=== PATIENT | male | born 1940 | race Caucasian/White ===

== ENCOUNTER 2017-11-09 19:08 | Inpatient (IN) | payer MEDICARE, OTHER ==
[2017-11-09] MEDS ORDERED: SODIUM CHLORIDE 0.9% 1,000 ML IV ONE ×2 (19:49)
--- NOTE | 2017-11-09 19:51 | ED Physician Documentation ---
PD HPI SKIN - Stated complaint Stated Complaint: BILAT LEG WOUNDS - Chief complaint Chief Complaint: Wound - History obtained from History obtained from: Patient, Family - History of Present Illness Timing - onset: Unknown Timing - details: Gradual onset Pain level max: 0 Pain level now: 0 Location: RLE, LLE Quality / character: Painful, Discolored, Crusted, Swelling, Draining Improved by: Other (nothing) Worsened by (comment): COMMENT (nothing) Associated symptoms: Fever (unknown). No: Facial swelling, Dyspnea, N/V/D Similar symptoms before: Diagnosis (cellulitis) Recently seen: Not recently seen (has not visited a physician for over 2 years.) Review of Systems Ten Systems: 10 systems reviewed and negative Constitutional: denies: Fever, Chills Ears: denies: Ear pain Nose: denies: Rhinorrhea / runny nose, Congestion Throat: denies: Sore throat Cardiac: denies: Chest pain / pressure Respiratory: denies: Dyspnea, Cough, Wheezing GI: denies: Abdominal Pain, Nausea, Diarrhea Skin: denies: Rash Musculoskeletal: denies: Neck pain, Back pain Neurologic: denies: Focal weakness, Numbness, Headache PD PAST MEDICAL HISTORY - Past Medical History Past Medical History: Yes Cardiovascular: Hypertension, Coronary artery disease Respiratory: None Neuro: Peripheral neuropathy Endocrine/Autoimmune: HyPOthyroidism GI: None : None HEENT: None Psych: None Musculoskeletal: Rheumatoid arthritis Derm: None - Past Surgical History Past Surgical History: Yes Cardiovascular: CABG HEENT: Cataracts - Present Medications Home Medications: Ambulatory Orders Medication Instructions Recorded Confirmed No Known Home Medications [No 11/09/17 11/09/17 Known Home Medications] - Allergies Allergies/Adverse Reactions: Allergies Allergy/AdvReac Type Severity Reaction Status Date / Time methotrexate Allergy Emesis Verified 11/09/17 19:21 - Social History Does the pt smoke?: Yes Smoking Status: Current every day smoker Does the pt drink ETOH?: No Does the pt have substance abuse?: No - Immunizations Immunizations are current?: No - POLST Patient has POLST: No PD ED PE NORMAL - Vitals Vital signs reviewed: Yes - General General: Alert and oriented X 3, No acute distress - HEENT HEENT: Other (dry lips and tongue) - Neck Neck: Supple, no meningeal sign - Cardiac Cardiac: RRR, Strong equal pulses - Respiratory Respiratory: No respiratory distress, Clear bilaterally - Abdomen Abdomen: Soft, Non tender, Non distended - Back Back: No spinal TTP - Derm Derm: Warm and dry, Other (flaking of skin on B LE and back) - Extremities Extremities: Other (pressure ulcer to the L heel, 2x2cm, deep. R LE - large wound to the lateral aspect. maggots present. Pressure ulcer on R hip as well. Decubitus ulcer on buttocks. swelling and erythema to B LE.) - Neuro Neuro: Alert and oriented X 3 Results - Vitals Vitals: Vital Signs - 24 hr 11/09/17 11/09/17 11/09/17 19:16 19:59 20:33 Temperature 37 C Heart Rate 113 H 116 H 112 H Respiratory 22 22 25 H Rate Blood Pressure 146/102 H 142/90 H 142/95 H O2 Saturation 97 97 Oxygen O2 Source Room air - Labs Labs: Laboratory Tests 11/09/17 11/09/17 11/09/17 19:57 19:57 19:57 WBC 11.5 H RBC 4.96 Hgb 14.1 Hct 43.2 MCV 87.1 MCH 28.4 MCHC 32.6 RDW 18.8 H Plt Count 216 MPV 9.0 Neut # (Auto) 10.1 H Lymph # (Auto) 0.9 L [place] # (Auto) 0.5 Eos # (Auto) 0.0 Baso # (Auto) 0.0 Absolute Nucleated RBC 0.00 Nucleated RBC % 0.0 Sodium 136 Potassium 3.6 Chloride 99 L Carbon Dioxide 27 Anion Gap 10.0 BUN 19 Creatinine 0.5 L Estimated GFR (MDRD) 161 Glucose 169 H Lactic Acid 4.5 H* Calcium 8.5 Total Bilirubin 1.0 AST 117 H ALT 64 H Alkaline Phosphatase 53 Total Creatine Kinase 1008 H* Total Protein 7.4 Albumin 2.3 L Globulin 5.1 H Albumin/Globulin Ratio 0.5 L Lipase 33 Urine Color Urine Clarity Urine pH Ur Specific [place] Urine Protein Urine Glucose (UA) Urine Ketones Urine Occult Blood Urine Nitrite Urine Bilirubin Urine Urobilinogen Ur Leukocyte Esterase Urine RBC Urine WBC Ur Squamous Epith Cells Urine Bacteria Ur Microscopic Review Urine Culture Comments 11/09/17 20:15 WBC RBC Hgb Hct MCV MCH MCHC RDW Plt Count MPV Neut # (Auto) Lymph # (Auto) [place] # (Auto) Eos # (Auto) Baso # (Auto) Absolute Nucleated RBC Nucleated RBC % Sodium Potassium Chloride Carbon Dioxide Anion Gap BUN Creatinine Estimated GFR (MDRD) Glucose Lactic Acid Calcium Total Bilirubin AST ALT Alkaline Phosphatase Total Creatine Kinase Total Protein Albumin Globulin Albumin/Globulin Ratio Lipase Urine Color DARK YELLOW Urine Clarity CLEAR Urine pH 6.0 Ur Specific [place] 1.025 Urine Protein 30 H Urine Glucose (UA) NEGATIVE Urine Ketones NEGATIVE Urine Occult Blood TRACE-INTA Urine Nitrite NEGATIVE Urine Bilirubin NEGATIVE Urine Urobilinogen 1 (NORMAL) Ur Leukocyte Esterase NEGATIVE Urine RBC None Seen Urine WBC 0-3 Ur Squamous Epith Cells NONE SEEN Urine Bacteria None Seen Ur Microscopic Review INDICATED Urine Culture Comments NOT INDICATED PD MEDICAL DECISION MAKING - ED course Complexity details: reviewed results, re-evaluated patient, considered differential, d/w patient, d/w family, d/w customs consultant ED course: Patient is a 77-year-old male who [facility] with extensive cellulitis of the bilateral lower extremities as well as several open chronic wounds. Will require wound care, IV antibiotics, IV fluids. He is septic as well. Blood cultures drawn. IV antibiotics given. Limited IV fluids given his history of severe heart failure. Discussed the case with Dr. Neri, hospitalist who accepts This document was made in part using voice recognition software. While efforts are made to proofread this document, sound alike and grammatical errors may occur. - Sepsis Event Vital Signs: Vital Signs - 24 hr 11/09/17 11/09/17 11/09/17 19:16 19:59 20:33 Temperature 37 C Heart Rate 113 H 116 H 112 H Respiratory 22 22 25 H Rate Blood Pressure 146/102 H 142/90 H 142/95 H O2 Saturation 97 97 Oxygen O2 Source Room air Departure - Departure Disposition: 66 [facility] DC/Xfer Clinical Impression: Cellulitis Qualifiers: Site of cellulitis: extremity Site of cellulitis of extremity: lower extremity Laterality: unspecified laterality Qualified Code(s): L03.119 - Cellulitis of unspecified part of limb Sepsis Qualifiers: Sepsis type: sepsis due to unspecified organism Qualified Code(s): A41.9 - Sepsis, unspecified organism Condition: Stable Discharge Date/Time: 11/09/17 21:35
[2017-11-09 20:08] LABS: BASOPHILS % (AUTO) 0.3 %; EOSINOPHILS % (AUTO) 0.2 %; HGB - HEMOGLOBIN 14.1 g/dL (14.0-18.0); LYMPHOCYTES # (AUTO) 0.9 10^3/uL (1.5-3.5); LYMPHOCYTES % (AUTO) 7.7 %; MEAN CORPUSCULAR HEMOGLOBIN 28.4 pg (27.0-31.0); MEAN CORPUSCULAR HGB CONC 32.6 g/dL (32.0-36.0); MEAN CORPUSCULAR VOLUME 87.1 fL (80.0-94.0); MONOCYTES # (AUTO) 0.5 10^3/uL (0.0-1.0); MONOCYTES % (AUTO) 4.4 %; NEUTROPHILS # (AUTO) 10.1 10^3/uL (1.5-6.6); NEUTROPHILS % (AUTO) 87.4 %; PLT - PLATELET COUNT 216 10^3/uL (130-450); RED BLOOD COUNT 4.96 10^6/uL (4.70-6.10); RED CELL DISTRIBUTION WIDTH 18.8 % (12.0-15.0); WHITE BLOOD COUNT 11.5 x10^3/uL (4.8-10.8)
[2017-11-09 20:19] LABS: ALBUMIN 2.3 g/dL (3.2-5.5); ALBUMIN/GLOBULIN RATIO 0.5 (1.0-2.2); CALCIUM 8.5 mg/dL (8.5-10.3); CREATININE 0.5 mg/dL (0.6-1.2); TOTAL PROTEIN 7.4 g/dL (6.7-8.2)
[2017-11-09] MEDS ORDERED: VANCOMYCIN INJ 1 GM in SODIUM CHLORIDE 0.9% 500 ML IV STA (20:20)
[2017-11-09] MEDS ORDERED: AMPICILLIN/SULBACTAM 3 GM in SODIUM CHLORIDE 0.9% MINIBAG 100 ML IV STA (20:20)
[2017-11-09] MEDS ORDERED: SODIUM CHLORIDE FLUSH 0.9% 10 ML SYRINGE IVP PRN (20:44)
[2017-11-09] MEDS ORDERED: PROCHLORPERAZINE 10 MG/2 ML VIAL IVP PRN (20:44)
[2017-11-09] MEDS ORDERED: PROMETHAZINE 25 MG/1 ML VIAL IM PRN (20:44)
[2017-11-09] MEDS ORDERED: ACETAMINOPHEN 325 MG TABLET PO PRN (20:44)
[2017-11-09] MEDS ORDERED: oxyCODONE 5 MG TABLET PO PRN (20:44)
[2017-11-09] MEDS ORDERED: ONDANSETRON 4 MG/2 ML VIAL IVP PRN (20:44)
[2017-11-09] MEDS ORDERED: ZOLPIDEM 5 MG TABLET PO PRN (20:44)
[2017-11-09 20:48] LABS: BILIRUBIN,URINE NEGATIVE (NEGATIVE); GLUCOSE, URINE (UA) NEGATIVE (NEGATIVE); KETONES,URINE (UA) NEGATIVE (NEGATIVE); LEUKOCYTE ESTERASE, URINE NEGATIVE (NEGATIVE); NITRITE,URINE NEGATIVE (NEGATIVE); OCCULT BLOOD,URINE TRACE-INTA (NEGATIVE); PROTEIN,URINE 30 mg/dL (NEGATIVE); UROBILINOGEN,URINE 1 (NORMAL) E.U./dL (NORMAL)
[2017-11-09] MEDS ORDERED: VANCOMYCIN INJ 1 GM in SODIUM CHLORIDE 0.9% 250 ML IV SCH (21:00)
[2017-11-09 21:01] LABS: BACTERIA,URINE None Seen /HPF (None Seen); CLARITY,URINE CLEAR (CLEAR); RBC,URINE None Seen /HPF (0-5); SQUAMOUS EPITHELIAL CELL,UR NONE SEEN (<= Few)
--- NOTE | 2017-11-09 21:06 | HISTORY & PHYSICAL EXAMINATION ---
Chief Complaint - Chief Complaint Chief Complaint: Generalized weakness History of Present Illness - Admitted From Admitted From:: Emergency Department - History Obtained From Records Reviewed: Yes History obtained from: Patient and son Exam Limitations: None - History of Present Illness HPI Comment/Other: Patient is a 77-year-old gentleman with a past medical history significant for rheumatoid arthritis, prediabetes, chronic venous stasis status post vein harvest of the left leg in 1965, history of pericardial effusion status post pericardiectomy, BPH, right inguinal hernia, history of left foot cellulitis osteoporosis and hypothyroidism who presented to the emergency department with a chief complaint of generalized weakness. The patient states that he has been having increasing weakness and has had multiple falls over the last few months. He states that on 11/06/2017 he had a fall while he was outside the grocery store in the parking lot. He states that he was assisted up by a few kind bystanders and was able to get back home. He states that over the last 2 or 3 days he has become increasingly weak and had another fall at home about 3 days ago. He states that he was not able to get up off the floor until today when his daughter arrived at his home. The patient's daughter gives a different history she states that she and her brother have been checking in on her dad every couple of days and just saw him yesterday. They state that he was brought food and ate an entire meal yesterday and seemed to be doing fine. The daughter states that when she arrived to check on him today she found him on the floor and then called her brother who help to get him up. She states that he was confused and very weak so he was brought into the hospital. The patient also states that he has had wounds on his legs for some time. He states that over the last 2 or 3 months they have been getting worse and worse. He states that over the last few weeks he has noted increasing drainage from the wounds especially on his right leg. He is also noticed that he has had bugs crawling on the wound. He states that his right leg is not painful but he states that the left leg has become increasingly painful over the last few days. He states he has noticed increasing swelling and redness in the left ankle up to the left knee. The patient's daughter states that when she came in to see him today she did notice that there was a foul odor from his legs. She states that she has not noticed the wounds on his legs even though she does check on him. She states that he does not allow them to look at the wounds or to help care for him regarding his medical problems. She states that he asks to be left independent and she does not believe he is going to see a doctor in the last 2 years. The patient states that he in fact has not seen a doctor in the last 2 years and has stopped taking his medications recently. The patient's daughter states that this is been an ongoing problem since the patient's in 2013. The patient states that he has had a good appetite but has not eaten anything in the last 3 days because he was lying on the floor. The patient's daughter states that the patient has been getting food and even had breakfast this morning but must have fallen while eating his breakfast because his yogurt and other dishes were on the floor beside him. The patient denies any fevers or chills. The patient denies hitting his head but states that he did fall on his left knee and that that is painful. The patient does admit to some difficulty swallowing especially liquids as he states he does occasionally choke when he drinks liquids. Patient denies any headaches, blurred vision, runny nose, sore throat, nasal congestion, chest pain, shortness of air, orthopnea, PND, palpitations, cough, fevers, chills, abdominal pain, nausea, vomiting, diarrhea, constipation, back pain, neck stiffness, hair loss, recent unintentional weight loss, night sweats , polyuria, polydipsia, increased urinary urgency, frequency, dysuria or any focal neurologic deficits. On presentation to the emergency department the patient was afebrile but he was tachycardic with a heart rate of 113, tachypneic with respiratory rate up to 29 , hypertensive. The patient was saturating well on room air. The patient appeared to be cachectic and very weak. The patient was confused and had very foul-smelling legs. It was noted in the emergency department that the patient had a large wound on his right leg with maggots crawling in the wound. The patient had drainage from this wound and also had erythema and swelling of his left lower extremity with multiple wounds. The patient's lab work revealed a leukocytosis of 11.5 along with a lactic acidosis of 4.5. The patient also had a total CK of 1008 and mildly elevated LFTs. The patient's UA was negative. The patient appeared to be septic likely source being his lower extremities which appear to be infected with cellulitis and also infection of his chronic wounds. The patient did not undergo any imaging in the emergency department and was admitted to the [facility] for severe sepsis likely secondary to cellulitis and wound infection. History - Past Medical History Cardiovascular: reports: Other (History of pericardial effusion status post pericardiectomy) Respiratory: reports: None Neuro: reports: Peripheral neuropathy Endocrine/Autoimmune: reports: Type 2 diabetes, HyPOthyroidism GI: reports: None : reports: Benign prostate hypertrophy HEENT: reports: None Psych: reports: None Musculoskeletal: reports: Rheumatoid arthritis, Osteoporosis Derm: reports: None MRSA Hx?: No Other Past Medical History: Chronic venous stasis with left leg vein harvest in 1964 - Past Surgical History Cardiovascular: reports: Other (Vein harvest, left leg in 1964 for chronic venous stasis, Pericardiectomy) HEENT: reports: Cataracts - Family & Social History Family History: Mother: , Father: Family History Comment/Other: Patient's mother had rheumatoid arthritis. Patient's son currently has rheumatoid arthritis and patient's father had osteoarthritis Living arrangement: At home Living Situation: Alone Social History Notes: The patient lives alone in [place]. He has 3 sons and 1 daughter. 1 of his sons and daughter both live nearby in [place]. The patient is his in 2013. According to his family since his he has stopped taking care of himself. The daughter and son state that they do help out the patient by bringing him food and checking in on him. They state that the patient is very stubborn and does not accept their help for taking care of any of his medical problems. The patient has not seen a physician in over 2 years. He has stopped taking his medications. The patient is retired and worked in the [employer] office for 35 years. Prior to that he was in the [employer] for 21 years. He grew up in a [employer] family and was born in [place], [place]. But he moved all over the [facility] this is the father was in the [employer]. His father was stationed in [place] and then settled in [place] where the patient spent his teenage years. The patient currently lives alone and has had multiple falls over the last few months. He does use a walker and a cane at home. He states that his my house is a mess with bugs crawling everywhere. The patient continues to smoke. He smokes half a pack a day plus cigars. He has been smoking for nearly 60 years. He used to be a moderate drinker but has cut back on his alcohol after he was told he was prediabetic. He does not use any illicit drugs. - POLST Patient has POLST: No POLST Status: DNR Meds/Allgy - Home Medications Home Medications: Ambulatory Orders Medication Instructions Recorded Confirmed No Known Home Medications [No 11/09/17 11/09/17 Known Home Medications] - Allergies Allergies/Adverse Reactions: Allergies Allergy/AdvReac Type Severity Reaction Status Date / Time methotrexate Allergy Emesis Verified 11/09/17 19:21 Review of Systems - Other Findings Other Findings: A comprehensive review of systems was performed the pertinent positives and negatives are stated above in the HPI and the remainder of the review of systems is negative. Exam - Vital Signs Reviewed Vital Signs: Yes Vital Signs: Vital Signs x48h Temp Pulse Resp BP Pulse Ox 11/09/17 20:48 36.0 C L 113 H 20 142/95 H 100 11/09/17 20:33 112 H 25 H 142/95 H 97 11/09/17 19:59 116 H 22 142/90 H 11/09/17 19:16 37 C 113 H 22 146/102 H 97 - Physical Exam General Appearance: positive: Other (Confused, cachectic appearing, very dry, no teeth, poor hygiene) Eyes Bilateral: positive: Normal inspection, PERRL, EOMI, No lid inflammation, Conjunctivae nml, No scleral icterus ENT: positive: Pharynx nml, Dry mucous membranes (very dry), Other (Adentulous) . negative: Pharyngeal erythema, Oral lesions Neck: positive: Nml inspection, Thyroid nml, No JVD, Trachea midline. negative : Thyromegaly, Lymphadenopathy (R), Lymphadenopathy (L), Stiff neck, Carotid bruit, Tracheal deviation Respiratory: positive: Chest non-tender, No respiratory distress, Breath sounds nml Cardiovascular: positive: No murmur, No gallop, Tachycardia Peripheral Pulses: positive: 1+ (Dorsalis pedis) Abdomen: positive: Non-tender, No organomegaly, Nml bowel sounds, No distention. negative: Guarding, Rebound, Hepatomegaly Back: positive: Nml inspection. negative: CVA tenderness (R), CVA tenderness (L ) Skin: positive: Dry, Other (Patient has severe erythema and swelling of his left ankle, foot up to his knee with excoriated skin and small ulcer at the bottom of his mitchell near the top of his foot on the left lower extremity. The patient's right lower extremity has large wound measuring 8 cm x 4 cm with maggots crawling in the wound and tissue with surrounding erythema. The patient also has multiple smaller wounds on the right leg. Patient's skin is dried and fluffing off.) Extremities: positive: Pedal edema, Other (Patient has severe erythema and swelling of his left ankle, foot up to his knee with excoriated skin and small ulcer at the bottom of his mitchell near the top of his foot on the left lower extremity. The patient's right lower extremity has large wound measuring 8 cm x 4 cm with maggots crawling in the wound and tissue with surrounding erythema. The patient also has multiple smaller wounds on the right leg. Patient's skin is dried and fluffing off.) Neurologic/Psychiatric: positive: Oriented x3, CN's nml (2-12), Motor nml, Sensation nml, Mood/affect nml Conclusion/Plan - Problem List (1) Severe sepsis Conclusion/Plan: Patient presented with leukocytosis of 11.5, lactic acidosis 4.5, tachycardia with heart rate of 110, and tachypneic with respiratory rate of 29. The patient was also confused and had altered mental status on presentation. The patient had generalized weakness prior to coming in and was found on the floor at his home. The patient appears to have severe sepsis on presentation with likely source being lower extremity cellulitis. The patient has erythema, swelling and pain of bilateral lower extremities with multiple wounds especially on the right lower extremity. The patient's urinalysis was negative and he did not have any respiratory symptoms to suggest pneumonia. The patient was admitted for severe sepsis likely secondary to cellulitis. Plan: IV vancomycin and Zosyn to treat for bilateral lower extremity cellulitis IV fluids Blood cultures and wound cultures Monitor lactic acid Telemetry monitoring for at least 24 hours till patient is more stable Closely monitor blood pressure (2) Cellulitis Conclusion/Plan: Patient presented with severe sepsis and appears to have bilateral lower extremity cellulitis worse on the left but with severe wounds on the right. Patient's legs and wounds are foul-smelling and wounds on the right lower extremity have maggots. Patient has some altered mental status and appears very dry on examination. Plan: IV vancomycin and Zosyn Wound care IV fluids Follow-up wound and blood cultures Contact precautions until cultures return Qualifiers: Site of cellulitis: extremity Site of cellulitis of extremity: lower extremity Laterality: unspecified laterality Qualified Code(s): L03.119 - Cellulitis of unspecified part of limb (3) Rhabdomyolysis Conclusion/Plan: Patient was found on the floor by his daughter and according to patient he was on the floor for 3 days but according to the daughter he was seen yesterday and looked to be fine. Unclear exactly how long the patient was on the floor but it appears that he has developed some mild rhabdomyolysis with a total CK of 1008. Patient does not have any renal failure secondary to the rhabdomyolysis. Plan: IV fluids Monitor total CK Monitor creatinine and electrolytes Physical therapy consult given multiple falls and generalized weakness Qualifiers: Rhabdomyolysis type: non-traumatic Qualified Code(s): M62.82 - Rhabdomyolysis (4) Wound, open, leg Conclusion/Plan: Patient has multiple wounds on bilateral lower extremities worse on the right. These appear to be chronic wounds that appear now to be infected and are foul- smelling with maggots. The patient has not seen a primary care physician in over 2 years and has obviously been neglecting his health. The patient's family state that they check in on him every few days but it appears the patient is getting nowhere near the help that he needs. The patient's wounds and legs appear to be infected. Plan: Wound care consult Social work consult for assistance with home health services, possible placement and wound care. IV antibiotics to treat cellulitis Wound cultures Orthopedic consult for possible debridement ABIs and possibly lower extremity angiogram as patient's dorsalis pedis pulse is very weak Consider MRI to look for possible osteomyelitis Qualifiers: Encounter type: initial encounter Laterality: unspecified laterality Qualified Code(s): S81.809A - Unspecified open wound, unspecified lower leg, initial encounter (5) Hypertension Conclusion/Plan: Patient's blood pressure is elevated on presentation with a blood pressure of 146/102. This may be secondary to pain as the patient does have quite a bit of pain in his left lower extremity. The patient states he does not have previous diagnosis of hypertension. The patient is not on any medications at this time. We will continue to monitor the patient's blood pressure while he is hospitalized and start him on antihypertensive medications if necessary. For now we will control the patient's pain and give him IV fluids for his dehydration and severe sepsis. Qualifiers: Hypertension type: unspecified Qualified Code(s): I10 - Essential (primary ) hypertension (6) Hyperglycemia Conclusion/Plan: The patient's blood glucose is elevated at 169 on presentation. According to the patient he has been diagnosed with prediabetes in the past. The patient is not on any medications at this time for diabetes. We will check the patient's hemoglobin A1c while he is hospitalized and consider starting him on sliding scale insulin or medications prior to discharge. For now we will monitor his blood glucose daily. Patient will be placed on regular diet for now and will consider diabetic diet if his A1c is elevated. (7) Elevated LFTs Conclusion/Plan: The patient does have elevated LFTs with AST of 117 and ALT of 64. These may be elevated secondary to severe sepsis with endorgan damage. We will continue to monitor his LFTs daily if they continue to be elevated we will need to consider hepatitis panel and further workup. If they improve with IV fluids and treatment of his severe sepsis we will conclude that they were likely elevated due to severe sepsis. (8) Dehydration Conclusion/Plan: The patient appears to be severely dehydrated on presentation. The patient's chloride is low at 99 and his mouth is very dry. According to the patient's family has been eating and drinking well until yesterday. The patient however stated that he been lying on the floor for the last 3 days. The patient may just be dehydrated secondary to infection as he does have an elevated lactic acid. We will give the patient IV fluids and monitor his electrolytes and kidney function. (9) Hypothyroidism Conclusion/Plan: Patient has a history of hypothyroidism and is on Synthroid at home. Patient has not been taking his home medications for several months and possibly years. He has not seen his primary care physician in 2 years. For now we will check the patient's TSH and then consider starting him back on his previous dose of Synthroid. Qualifiers: Hypothyroidism type: unspecified Qualified Code(s): E03.9 - Hypothyroidism , unspecified (10) Tobacco abuse Conclusion/Plan: The patient continues to smoke half a pack a day and cigars. The patient states he has been smoking for almost 60 years now. He does not plan on stopping. We did explain to him the adverse effects of smoking and gave him counseling. The patient was offered a nicotine patch while he is hospitalized. - Lab Results Lab results reviewed: Yes Fish Bones: 11/09/17 19:57 11/09/17 19:57 Other Lab Results: Laboratory Results WBC 11.5 x10^3/uL (4.8-10.8) H 11/09/17 19:57 RBC 4.96 10^6/uL (4.70-6.10) 11/09/17 19:57 Hgb 14.1 g/dL (14.0-18.0) 11/09/17 19:57 Hct 43.2 % (42.0-52.0) 11/09/17 19:57 MCV 87.1 fL (80.0-94.0) 11/09/17 19:57 MCH 28.4 pg (27.0-31.0) 11/09/17 19:57 MCHC 32.6 g/dL (32.0-36.0) 11/09/17 19:57 RDW 18.8 % (12.0-15.0) H 11/09/17 19:57 Plt Count 216 10^3/uL (130-450) 11/09/17 19:57 MPV 9.0 fL (7.4-11.4) 11/09/17 19:57 Neut # (Auto) 10.1 10^3/uL (1.5-6.6) H 11/09/17 19:57 Lymph # (Auto) 0.9 10^3/uL (1.5-3.5) L 11/09/17 19:57 [place] # (Auto) 0.5 10^3/uL (0.0-1.0) 11/09/17 19:57 Eos # (Auto) 0.0 10^3/uL (0.0-0.7) 11/09/17 19:57 Baso # (Auto) 0.0 10^3/uL (0.0-0.1) 11/09/17 19:57 Absolute Nucleated RBC 0.00 x10^3/uL 11/09/17 19:57 Nucleated RBC % 0.0 /100WBC 11/09/17 19:57 Sodium 136 mmol/L (135-145) 11/09/17 19:57 Potassium 3.6 mmol/L (3.5-5.0) 11/09/17 19:57 Chloride 99 mmol/L (101-111) L 11/09/17 19:57 Carbon Dioxide 27 mmol/L (21-32) 11/09/17 19:57 Anion Gap 10.0 (6-13) 11/09/17 19:57 BUN 19 mg/dL (6-20) 11/09/17 19:57 Creatinine 0.5 mg/dL (0.6-1.2) L 11/09/17 19:57 Estimated GFR (MDRD) 161 (>89) 11/09/17 19:57 Glucose 169 mg/dL (70-100) H 11/09/17 19:57 Lactic Acid 4.5 mmol/L (0.5-2.2) H* 11/09/17 19:57 Calcium 8.5 mg/dL (8.5-10.3) 11/09/17 19:57 Total Bilirubin 1.0 mg/dL (0.2-1.0) 11/09/17 19:57 AST 117 IU/L (10-42) H 11/09/17 19:57 ALT 64 IU/L (10-60) H 11/09/17 19:57 Alkaline Phosphatase 53 IU/L (42-121) 11/09/17 19:57 Total Creatine Kinase 1008 IU/L (22-269) H* 11/09/17 19:57 Total Protein 7.4 g/dL (6.7-8.2) 11/09/17 19:57 Albumin 2.3 g/dL (3.2-5.5) L 11/09/17 19:57 Globulin 5.1 g/dL (2.1-4.2) H 11/09/17 19:57 Albumin/Globulin Ratio 0.5 (1.0-2.2) L 11/09/17 19:57 Lipase 33 U/L (22-51) 11/09/17 19:57 Urine Color DARK YELLOW 11/09/17 20:15 Urine Clarity CLEAR (CLEAR) 11/09/17 20:15 Urine pH 6.0 PH (5.0-7.5) 11/09/17 20:15 Ur Specific [place] 1.025 (1.002-1.030) 11/09/17 20:15 Urine Protein 30 mg/dL (NEGATIVE) H 11/09/17 20:15 Urine Glucose (UA) NEGATIVE mg/dL (NEGATIVE) 11/09/17 20:15 Urine Ketones NEGATIVE mg/dL (NEGATIVE) 11/09/17 20:15 Urine Occult Blood TRACE-INTA (NEGATIVE) 11/09/17 20:15 Urine Nitrite NEGATIVE (NEGATIVE) 11/09/17 20:15 Urine Bilirubin NEGATIVE (NEGATIVE) 11/09/17 20:15 Urine Urobilinogen 1 (NORMAL) E.U./dL (NORMAL) 11/09/17 20:15 Ur Leukocyte Esterase NEGATIVE (NEGATIVE) 11/09/17 20:15 Urine RBC None Seen /HPF (0-5) 11/09/17 20:15 Urine WBC 0-3 /HPF (0-3) 11/09/17 20:15 Ur Squamous Epith Cells NONE SEEN (<= Few) 11/09/17 20:15 Urine Bacteria None Seen /HPF (None Seen) 11/09/17 20:15 Ur Microscopic Review INDICATED 11/09/17 20:15 Urine Culture Comments NOT INDICATED 11/09/17 20:15 Core Measures - Anticipated LOS I expect patient to be DC'd or transferred within 96 hours.: Yes - DVT/VTE - Prophylaxis VTE/DVT Prophylaxis med ordered at admit?: Yes
[2017-11-10] MEDS: IBUPROFEN 600 MG TABLET PO PRN (00:34)
--- NOTE | 2017-11-10 01:53 | XRAY Report ---
Reason: Sepsis Procedure Date: 11/10/2017 Accession Number: [id number] / [id number] Procedure: XR - Chest 1 View X-Ray CPT Code: 66848 FULL RESULT: EXAM: CHEST RADIOGRAPHY EXAM DATE: 11/09/2017 11:37 PM. CLINICAL HISTORY: Sepsis. COMPARISON: CHEST 2 VIEW PA/LAT 10/29/2015. TECHNIQUE: 1 view. FINDINGS: Lungs/Pleura: Diffuse interstitial thickening and hazy lung opacities. This has increased since the previous exam. Is blunting of the left costophrenic angle. No pneumothorax. Mediastinum: Status post median sternotomy. Normal heart size. Other: None. IMPRESSION: Interval increase in diffuse interstitial and hazy alveolar airspace opacities. This may be secondary to worsening interstitial lung disease or mild superimposed edema. No focal airspace consolidation. RADIA
[2017-11-10] MEDS: PIPERACILLIN/TAZOBACTAM 3.375 GM in SODIUM CHLORIDE 0.9% MINIBAG 100 ML IV SCH ×2 (02:28→10:28)
[2017-11-10] MEDS: SODIUM CHLORIDE FLUSH 0.9% 10 ML SYRINGE IVP SCH ×3 (02:29→19:56)
[2017-11-10] MEDS: NICOTINE 21 MG PATCH TOP SCH ×2 (02:52→10:28)
--- NOTE | 2017-11-10 04:16 | XRAY Report ---
Reason: Left knee pain after fall Procedure Date: 11/10/2017 Accession Number: [id number] / [id number] Procedure: XR - Knee 3 View LT CPT Code: FULL RESULT: EXAM: LEFT KNEE RADIOGRAPHY EXAM DATE: 11/10/2017 01:09 AM. CLINICAL HISTORY: Left knee pain after fall. COMPARISON: None. TECHNIQUE: 3 views. FINDINGS: Bones: Suspected fracture at the lateral aspect of the patella on the sunrise view. Old healed fracture in the distal shaft of the femur. Joints: No dislocation seen. Mild degenerative changes. No joint effusion identified. Soft Tissues: Metal fragments in the distal thigh soft tissues. IMPRESSION: 1. Probable fracture at the lateral aspect of the patella on the sunrise view. RADIA
[2017-11-10] MEDS: SODIUM CHLORIDE 0.9% 1,000 ML IV SCH ×3 (05:10→19:49)
[2017-11-10 06:17] LABS: BASOPHILS % (AUTO) 0.1 %; EOSINOPHILS # (AUTO) 0.1 10^3/uL (0.0-0.7); EOSINOPHILS % (AUTO) 1.3 %; LYMPHOCYTES % (AUTO) 12.2 %; MEAN CORPUSCULAR HGB CONC 33.2 g/dL (32.0-36.0); MEAN CORPUSCULAR VOLUME 87.3 fL (80.0-94.0); MEAN PLATELET VOLUME 9.1 fL (7.4-11.4); MONOCYTES # (AUTO) 0.6 10^3/uL (0.0-1.0); MONOCYTES % (AUTO) 7.6 %; NEUTROPHILS # (AUTO) 6.5 10^3/uL (1.5-6.6); NEUTROPHILS % (AUTO) 78.8 %; PLT - PLATELET COUNT 183 10^3/uL (130-450); RED BLOOD COUNT 4.14 10^6/uL (4.70-6.10); RED CELL DISTRIBUTION WIDTH 18.3 % (12.0-15.0); WHITE BLOOD COUNT 8.3 x10^3/uL (4.8-10.8)
[2017-11-10 06:28] LABS: ALBUMIN 1.8 g/dL (3.2-5.5); ALBUMIN/GLOBULIN RATIO 0.5 (1.0-2.2); ALKALINE PHOSPHATASE 39 IU/L (42-121); ALT ALANINE AMINOTRANSFERASE 48 IU/L (10-60); AST ASPARTATE AMINOTRANSFERASE 81 IU/L (10-42); BILIRUBIN,TOTAL 0.9 mg/dL (0.2-1.0); BUN - BLOOD UREA NITROGEN 14 mg/dL (6-20); CALCIUM 7.8 mg/dL (8.5-10.3); CARBON DIOXIDE - CO2 28 mmol/L (21-32); CHLORIDE 103 mmol/L (101-111); CREATININE 0.5 mg/dL (0.6-1.2); GFR - MDRD 161 (>89); GLUCOSE 123 mg/dL (70-100); SODIUM 139 mmol/L (135-145); TOTAL PROTEIN 5.5 g/dL (6.7-8.2)
[2017-11-10 06:34] LABS: VBG PH 7.441 (7.31-7.41)
[2017-11-10 06:41] LABS: HB2 TOTAL 12.5 g/dL; HEMOGLOBIN A1C 0.52 g/dL
[2017-11-10] MEDS: FAMOTIDINE 20 MG TABLET PO SCH (10:28)
[2017-11-10] MEDS: ENOXAPARIN 40 MG/0.4 ML SYRINGE SUBQ SCH (10:28)
[2017-11-10] MEDS: POLYETHYLENE GLYCOL 3350 17 GM PACKET PO SCH (10:28)
[2017-11-10] MEDS: MEROPENEM 1 GM in SODIUM CHLORIDE 0.9% MINIBAG 100 ML IV SCH ×2 (14:45→22:56)
[2017-11-10] MEDS: ZINC SULFATE 220 MG CAPSULE PO SCH (15:51)
[2017-11-10] MEDS: ASCORBIC ACID CHEW 500 MG TABLET PO SCH (15:51)
[2017-11-10] MEDS: MULTIVITAMIN W/MINERALS TABLET PO SCH (15:51)
[2017-11-10] MEDS: SACCHAROMYCES BOULARDII 250 MG CAPSULE PO SCH ×2 (15:51→16:21)
--- NOTE | 2017-11-10 16:33 | PROVIDER PROGRESS NOTE ---
Subjective - Prog Note Date Prog Note Date: 11/10/17 Prog Note Time: 16:33 - Subjective Subjective: Mr. Parry was seen with both his son and daughter at the bedside. They were visiting dad while he was eating breakfast. He was eating everything on his plate. He like the food. He seems deaf, and I have to make sure speak in a loud voice and turn off the TV. His main complaint is "my left knee is killing me". Other than that he felt he was "fine". He denied chest pain, palpitations. Denied shortness of breath. No abdominal pain. I was able to view a little bit of his chart in [facility]. His in 2013 and both son and daughter endorsed that he has been going downhill since then. They suspect he has some memory loss issues. But he has been stubborn. Refusing to see his doctors and complaining that "I cannot get into see them". But they know this is not true. He has been followed by Dr. 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 He did not want to follow the recommendations. He last saw Dr. Young March 2016. It was a follow-up where he was supposed to be using Plaquenil for his rheumatoid arthritis. He is already failed Enbrel and already failed methotrexate. But he never took the Plaquenil. Dr. Young then discharged him on methotrexate but he never took that either. He never followed up either. The patient told Dr. Young that he developed a facial infection after getting his teeth removed in October 2015. He attributed that infection to the fact that he was using rheumatoid arthritis drugs and is not taking any remittive agent since October 2015. There is been a definite loss of weight over time. In 2006 he was 206 pounds. In 2007 and 2008 he was 196 pounds. 2011 he was 192 pounds. He dropped 285 by the end of the year. In 2013 he was 176. November 2015 he was 161. With this admission he is 140.8 pounds Current Medications - Current Medications Current Medications: Active Medications Acetaminophen (Tylenol) 650 mg PO Q4HR PRN PRN Reason: Pain 1 to 4 Ascorbic Acid (Vitamin C) 500 mg PO DAILY [facility] Last Admin: 11/10/17 15:51 Dose: 500 mg Enoxaparin Sodium (Lovenox) 40 mg SUBQ DAILY [facility] Last Admin: 11/10/17 10:28 Dose: 40 mg Famotidine (Pepcid) 20 mg PO DAILY [facility] Last Admin: 11/10/17 10:28 Dose: 20 mg Sodium Chloride (Normal Saline 0.9%) 1,000 mls @ 150 mls/hr IV .Q6H40M [facility] Stop: 11/10/17 16:59 Last Admin: 11/10/17 12:59 Dose: 150 mls/hr Vancomycin HCl 1 gm/ Sodium (Chloride) 250 mls @ 167 mls/hr IV Q24H [facility] Meropenem 1 gm/ Sodium (Chloride) 100 mls @ 200 mls/hr IV Q8H [facility] Last Infusion: 11/10/17 16:01 Dose: Infused Ibuprofen (Motrin) 600 mg PO Q6HR PRN PRN Reason: Pain 1 to 4 Last Admin: 11/10/17 00:34 Dose: 600 mg Multivitamins/Minerals (Theragran M) 1 tab PO DAILYWM [facility] Last Admin: 11/10/17 15:51 Dose: 1 tab Nicotine (Nicoderm) 1 patch TOP DAILY [facility] Last Admin: 11/10/17 10:28 Dose: 1 patch Ondansetron HCl (Zofran Inj) 4 mg IVP Q6HR PRN PRN Reason: Nausea / Vomiting Oxycodone HCl (Roxicodone) 5 mg PO Q4HR PRN PRN Reason: Pain 5 to 7 Polyethylene Glycol (Miralax) 17 gm PO DAILY [facility] Last Admin: 11/10/17 10:28 Dose: 17 gm Potassium Chloride () 40 meq PO QID [facility] Stop: 11/11/17 09:01 Prochlorperazine Edisylate (Compazine Inj) 10 mg IVP Q6HR PRN PRN Reason: Nausea / Vomiting Promethazine HCl (Phenergan Inj) 25 mg IM Q6HR PRN PRN Reason: Nausea / Vomiting Saccharomyces Boulardii (Florastor) 250 mg PO BIDWM [facility] Last Admin: 11/10/17 16:21 Dose: 250 mg Sodium Chloride (Normal Saline Flush 0.9%) 10 ml IVP PRN PRN PRN Reason: NEEDED PER PROVIDER ORDERS Sodium Chloride (Normal Saline Flush 0.9%) 10 ml IVP 0100,0900,1700 [facility] Last Admin: 11/10/17 10:28 Dose: Not Given Zinc Sulfate () 220 mg PO DAILY [facility] Last Admin: 11/10/17 15:51 Dose: 220 mg Zolpidem Tartrate (Ambien) 5 mg PO QPM PRN PRN Reason: Insomnia No Known Home Medications [No Known Home Medications] 11/10/17 Objective - Vital Signs/Intake & Output Reviewed Vital Signs: Yes Vital Signs: Vital Signs x48h Temp Pulse Resp BP BP Pulse Ox 11/10/17 16:00 36.7 C 85 16 119/75 94 11/10/17 13:44 36.8 C 92 18 111/68 98 Intake & Output: Intake & Output 11/07/17 11/08/17 11/09/17 11/10/17 23:59 23:59 23:59 23:59 Intake Total 1600 2690 Output Total 600 Balance 1600 2089 - Objective General Appearance: positive: No acute distress, Alert, Other (Cachectic elderly man with disheveled hair, pollard and mustache, watching TV and eating breakfast and talking to his kids. . So sometimes I have to make sure he hears me and his son will speak in a loud voice and "dad did you hear her") Eyes Bilateral: positive: PERRL, EOMI ENT: positive: Pharynx nml, Other (Partially edentulous, in the teeth that are left are not in good shape) Neck: positive: No JVD. negative: Stiff neck, Carotid bruit Respiratory: positive: Chest non-tender. negative: Wheezes, Rales, Rhonchi Cardiovascular: positive: Regular rate & rhythm, Systolic murmur. negative: Gallop/S4, Friction rub Abdomen: positive: Non-tender, No organomegaly, Nml bowel sounds, Other ( Scaphoid abdomen) Skin: positive: Other (Large loss of tissue down to muscle and some areas, fat in other areas on the right lateral calf. The left lateral calf has minimal loss of tissue. No maggots today. Left knee is very painful.) Extremities: positive: Other (Tender knee on the left) Neurologic/Psychiatric: positive: Oriented x3, CN's nml (2-12) (Except he is deaf), Motor nml, Weakness (Generalized, nonfocal) - Lab Results Fish Bones: 11/10/17 06:00 09/06/18 06:00 Other Labs: Lab Results x24hrs 11/10/17 11/10/17 11/10/17 Range/Units 06:00 06:00 06:00 WBC (4.8-10.8) x10^3/uL RBC (4.70-6.10) 10^6/uL Hgb (14.0-18.0) g/dL Hct (42.0-52.0) % MCV (80.0-94.0) fL MCH (27.0-31.0) pg MCHC (32.0-36.0) g/dL RDW (12.0-15.0) % Plt Count (130-450) 10^3/uL MPV (7.4-11.4) fL Neut # (Auto) (1.5-6.6) 10^3/uL Lymph # (Auto) (1.5-3.5) 10^3/uL [place] # (Auto) (0.0-1.0) 10^3/uL Eos # (Auto) (0.0-0.7) 10^3/uL Baso # (Auto) (0.0-0.1) 10^3/uL Absolute Nucleated RBC x10^3/uL Nucleated RBC % /100WBC VBG pH 7.441 H (7.31-7.41) Ionized Calcium 1.11 L YES (1.15-1.33) mmol/L Sodium 139 (135-145) mmol/L Potassium 3.0 L (3.5-5.0) mmol/L Chloride 103 (101-111) mmol/L Carbon Dioxide 28 (21-32) mmol/L Anion Gap 8.0 (6-13) BUN 14 (6-20) mg/dL Creatinine 0.5 L (0.6-1.2) mg/dL Estimated GFR (MDRD) 161 (>89) Glucose 123 H (70-100) mg/dL Glycated Hemoglobin (4.6-6.2) % Estim Average Glucose (70-100) Lactic Acid (0.5-2.2) mmol/L Calcium 7.8 L (8.5-10.3) mg/dL Total Bilirubin 0.9 (0.2-1.0) mg/dL AST 81 H (10-42) IU/L ALT 48 (10-60) IU/L Alkaline Phosphatase 39 L (42-121) IU/L Total Creatine Kinase (22-269) IU/L Total Protein 5.5 L (6.7-8.2) g/dL Albumin 1.8 L (3.2-5.5) g/dL Globulin 3.7 (2.1-4.2) g/dL Albumin/Globulin Ratio 0.5 L (1.0-2.2) TSH 4.40 (0.34-5.60) uIU/mL 11/10/17 11/10/17 11/10/17 Range/Units 06:00 06:00 06:00 WBC 8.3 (4.8-10.8) x10^3/uL RBC 4.14 L (4.70-6.10) 10^6/uL Hgb 12.0 L (14.0-18.0) g/dL Hct 36.2 L (42.0-52.0) % MCV 87.3 (80.0-94.0) fL MCH 29.0 (27.0-31.0) pg MCHC 33.2 (32.0-36.0) g/dL RDW 18.3 H (12.0-15.0) % Plt Count 183 (130-450) 10^3/uL MPV 9.1 (7.4-11.4) fL Neut # (Auto) 6.5 (1.5-6.6) 10^3/uL Lymph # (Auto) 1.0 L (1.5-3.5) 10^3/uL [place] # (Auto) 0.6 (0.0-1.0) 10^3/uL Eos # (Auto) 0.1 (0.0-0.7) 10^3/uL Baso # (Auto) 0.0 (0.0-0.1) 10^3/uL Absolute Nucleated RBC 0.01 x10^3/uL Nucleated RBC % 0.1 /100WBC VBG pH (7.31-7.41) Ionized Calcium (1.15-1.33) mmol/L Sodium (135-145) mmol/L Potassium (3.5-5.0) mmol/L Chloride (101-111) mmol/L Carbon Dioxide (21-32) mmol/L Anion Gap (6-13) BUN (6-20) mg/dL Creatinine (0.6-1.2) mg/dL Estimated GFR (MDRD) (>89) Glucose (70-100) mg/dL Glycated Hemoglobin 6.0 (4.6-6.2) % Estim Average Glucose 126 H (70-100) Lactic Acid (0.5-2.2) mmol/L Calcium (8.5-10.3) mg/dL Total Bilirubin (0.2-1.0) mg/dL AST (10-42) IU/L ALT (10-60) IU/L Alkaline Phosphatase (42-121) IU/L Total Creatine Kinase 527 H (22-269) IU/L Total Protein (6.7-8.2) g/dL Albumin (3.2-5.5) g/dL Globulin (2.1-4.2) g/dL Albumin/Globulin Ratio (1.0-2.2) TSH (0.34-5.60) uIU/mL 11/10/17 11/09/17 Range/Units 02:45 23:30 WBC (4.8-10.8) x10^3/uL RBC (4.70-6.10) 10^6/uL Hgb (14.0-18.0) g/dL Hct (42.0-52.0) % MCV (80.0-94.0) fL MCH (27.0-31.0) pg MCHC (32.0-36.0) g/dL RDW (12.0-15.0) % Plt Count (130-450) 10^3/uL MPV (7.4-11.4) fL Neut # (Auto) (1.5-6.6) 10^3/uL Lymph # (Auto) (1.5-3.5) 10^3/uL [place] # (Auto) (0.0-1.0) 10^3/uL Eos # (Auto) (0.0-0.7) 10^3/uL Baso # (Auto) (0.0-0.1) 10^3/uL Absolute Nucleated RBC x10^3/uL Nucleated RBC % /100WBC VBG pH (7.31-7.41) Ionized Calcium (1.15-1.33) mmol/L Sodium (135-145) mmol/L Potassium (3.5-5.0) mmol/L Chloride (101-111) mmol/L Carbon Dioxide (21-32) mmol/L Anion Gap (6-13) BUN (6-20) mg/dL Creatinine (0.6-1.2) mg/dL Estimated GFR (MDRD) (>89) Glucose (70-100) mg/dL Glycated Hemoglobin (4.6-6.2) % Estim Average Glucose (70-100) Lactic Acid 1.7 2.2 (0.5-2.2) mmol/L Calcium (8.5-10.3) mg/dL Total Bilirubin (0.2-1.0) mg/dL AST (10-42) IU/L ALT (10-60) IU/L Alkaline Phosphatase (42-121) IU/L Total Creatine Kinase (22-269) IU/L Total Protein (6.7-8.2) g/dL Albumin (3.2-5.5) g/dL Globulin (2.1-4.2) g/dL Albumin/Globulin Ratio (1.0-2.2) TSH (0.34-5.60) uIU/mL ABX Reporting Has patient been on IV antibiotics over the past 48 hours?: Yes Assessment/Plan - Problem List (1) Sepsis Impression: Resolved. Patient presented with leukocytosis of 11.5, lactic acidosis 4.5, tachycardia with heart rate of 110, and tachypneic with respiratory rate of 29. The patient was also confused and had altered mental status on presentation. The patient had generalized weakness prior to coming in and was found on the floor at his home. The patient appears to have severe sepsis on presentation with likely source being lower extremity cellulitis. The patient has erythema, swelling and pain of bilateral lower extremities with multiple wounds especially on the right lower extremity. The patient's urinalysis was negative and he did not have any respiratory symptoms to suggest pneumonia. The patient was admitted for severe sepsis likely secondary to cellulitis. With empiric antibiotic therapy in the form of Zosyn and vancomycin his leukocytosis is now resolved and it is 8. Lactic acid is below 2. Because there is literature around the use of combination vancomycin and Zosyn causing acute kidney injury, we are changing his Zosyn to meropenem. Plan: IV vancomycin and Meropenem to treat for bilateral lower extremity cellulitis IV fluids Blood cultures and wound cultures Pending. The wounds do show gram-negative and gram-positive bacilli. Blood cultures have been taken but there is no preliminary reports yet at less than 24 hours. We can stop monitoring lactic acid since it is now normal Telemetry monitoring for at least 24 hours till patient is more stable. We will stop telemetry monitoring since he has been stable Continue to closely monitor blood pressure (2) Cellulitis Conclusion/Plan: Patient presented with severe sepsis And the sepsis is resolved and appears to have bilateral lower extremity cellulitis worse on the left but with severe wounds on the right. Patient's legs and wounds are foul-smelling and wounds on the right lower extremity have maggots. Patient has some altered mental status and appears very dry on examination.He has improved with his mental status, and is not as dehydrated Plan: IV vancomycin Day #2 and Zosyn Changed to meropenem, day #1 Wound care With [facility] clinic consult IV fluids Continue Follow-up wound and blood cultures Contact precautions until cultures return We will consult orthopedics to see if any debridement needs to be done. I have contacted Dr. Hernandez Qualifiers: Site of cellulitis: extremity Site of cellulitis of extremity: lower extremity Laterality: unspecified laterality Qualified Code(s): L03.119 - Cellulitis of unspecified part of limb (3) Rhabdomyolysis Conclusion/Plan: Patient was found on the floor by his daughter and according to patient he was on the floor for 3 days but according to the daughter he was seen yesterday and looked to be fine. Unclear exactly how long the patient was on the floor but it appears that he has developed some mild rhabdomyolysis with a total CK of 1008. Patient does not have any renal failure secondary to the rhabdomyolysis. Plan: IV fluids Monitor total CK. He is down to 527 from 1008 Monitor creatinine and electrolytes Physical therapy consult given multiple falls and generalized weakness Qualifiers: Rhabdomyolysis type: non-traumatic Qualified Code(s): M62.82 - Rhabdomyolysis (4) Wound, open, leg Conclusion/Plan: Patient has multiple wounds on bilateral lower extremities worse on the right. These appear to be chronic wounds that appear now to be infected and are foul- smelling with maggots. The patient has not seen a primary care physician in over 2 years and has obviously been neglecting his health. The patient's family state that they check in on him every few days but it appears the patient is getting nowhere near the help that he needs. The patient's wounds and legs appear to be infected. Plan: Wound care consult Social work consult for assistance with home health services, possible placement and wound care.His son states dad will never go to a [place] health care facility. He will absolutely refuse it. He is asking for a list of private in-home providers they can hire, or agencies they can go through. I will let social work note. IV antibiotics to treat cellulitis. Continue with changes as above. Day #2 of antibiotics. Wound cultures Show gram-negative and gram-positive bacilli on Gram stain Orthopedic consult for possible debridement Called to Dr. Mary Garcia and possibly lower extremity angiogram as patient's dorsalis pedis pulse is very weak Consider MRI to look for possible osteomyelitis If Dr. Hernandez feels it is necessary. Qualifiers: Encounter type: initial encounter Laterality: unspecified laterality Qualified Code(s): S81.809A - Unspecified open wound, unspecified lower leg, initial encounter (5) Hypertension Conclusion/Plan: Patient's blood pressure is elevated on presentation with a blood pressure of 146/102. This may be secondary to pain as the patient does have quite a bit of pain in his left lower extremity. The patient states he does not have previous diagnosis of hypertension. The patient is not on any medications at this time. We will continue to monitor the patient's blood pressure while he is hospitalized and start him on antihypertensive medications if necessary. For now we will control the patient's pain and give him IV fluids for his dehydration and severe sepsis. But with that treatment, his blood pressure is been anywhere from 108 systolic to 119 systolic. So no antihypertensives at this time. Qualifiers: Hypertension type: unspecified Qualified Code(s): I10 - Essential (primary ) hypertension (6) Hyperglycemia With a history of type 2 diabetes mellitus, controlled, not on insulin. Conclusion/Plan: The patient's blood glucose is elevated at 169 on presentation. According to the patient he has been diagnosed with prediabetes in the past but in reviewing [facility] he carries a diagnosis of diabetes. The patient is not on any medications at this time for diabetes. A1c is 6% and we didconsider starting him on sliding scale insulin or medications prior to discharge But with his age and comorbidity, most likely he will go home without medication.. For now we will monitor his blood glucose daily. Patient will be placed on regular diet for now and will consider diabetic diet if his A1c is elevated. (7) Elevated LFTs Conclusion/Plan: The patient does have elevated LFTs with AST of 117 and ALT of 64. These may be elevated secondary to severe sepsis with endorgan damage. We will continue to monitor his LFTs daily if they continue to be elevated we will need to consider hepatitis panel and further workup. If they improve with IV fluids and treatment of his severe sepsis we will conclude that they were likely elevated due to severe sepsis.His ALT is down to 81 from 117. AST is normal. (8) Dehydration Conclusion/Plan: The patient appears to be severely dehydrated on presentation. The patient's chloride is low at 99 and his mouth is very dry. According to the patient's family has been eating and drinking well until yesterday. The patient however stated that he been lying on the floor for the last 3 days. The patient may just be dehydrated secondary to infection as he does have an elevated lactic acid. We will give the patient IV fluids and monitor his electrolytes and kidney function.We also suspect that he is malnutrition and dehydration has been chronic and ongoing. It is puzzling to us that the family feels that this is a recent acute event but the medical record with regards to weight loss shows differently. (9) Hypothyroidism Conclusion/Plan: Patient has a history of hypothyroidism and is on Synthroid at home. Patient has not been taking his home medications for several months and possibly years. He has not seen his primary care physician in 2 years. For now we will check the patient's TSH and then consider starting him back on his previous dose of Synthroid.His TSH is 4. At this time we will hold off on resuming medication since this is borderline hypothyroidism. Qualifiers: Hypothyroidism type: unspecified Qualified Code(s): E03.9 - Hypothyroidism , unspecified (10) Tobacco abuse Conclusion/Plan: The patient continues to smoke half a pack a day and cigars. The patient states he has been smoking for almost 60 years now. He does not plan on stopping. We did explain to him the adverse effects of smoking and gave him counseling. The patient was offered a nicotine patch while he is hospitalized. (11) Failure to thrive. Conclusion/Plan: Causes could be from adjustment disorder and the loss of his where he has never recovered. Cognitive deficit of aging. An undiagnosed depressive disorder. He does have a history of depression noted in April 2006. In any case, the patient has gone from 206 pounds 240 pounds between 2006 and 2015. He does have a history of an elevated PSA but that was evaluated with a biopsy by Dr. paez in 2013 and pathology was negative. There is a possibility of a neoplasm we are missing is the cause of his failure to thrive but it is not presenting itself. Chest x-ray does not show lung neoplasm. In any case, he is not doing well. I do not know how much we will be able to help him to regain his status. Son shares that dad will never go to a correction facility and they were in the process of trying to hire in-home support services. Social work feels that a APS referral for self neglect is in order and I agree. . Qualifiers: Qualified Code(s): A41.9 - Sepsis, unspecified organism
[2017-11-10] MEDS: POTASSIUM CHLORIDE 20 MEQ/15 ML UDC PO SCH ×2 (16:50→21:27)
--- NOTE | 2017-11-10 18:18 | PROVIDER PROGRESS NOTE ---
Subjective - Prog Note Date Prog Note Date: 11/10/17 Prog Note Time: 18:15 - Subjective Pt reports feeling: No change (Patient [facility] several falls over the past week, injuring his left knee. Now have pain with ambulation with pain antertiorly in his left knee. Mild swelling noted. Past hx significant for complex open left distal femur fx which did go on to heal but he has a residual knee flexion contracture. Other concerns on this admission is his chronoic leg venous stasis ulcerations: R>L) Objective - Vital Signs/Intake & Output Vital Signs: Vital Signs x48h Temp Pulse Resp BP BP Pulse Ox 11/10/17 16:00 36.7 C 85 16 119/75 94 11/10/17 13:44 36.8 C 92 18 111/68 98 Intake & Output: Intake & Output 11/07/17 11/08/17 11/09/17 11/10/17 23:59 23:59 23:59 23:59 Intake Total 1600 2690 Output Total 600 Balance 1600 2090 - Lab Results Fish Bones: 11/10/17 06:00 11/10/17 06:00 Other Labs: Lab Results x24hrs 11/10/17 11/10/17 11/10/17 Range/Units 06:00 06:00 06:00 WBC (4.8-10.8) x10^3/uL RBC (4.70-6.10) 10^6/uL Hgb (14.0-18.0) g/dL Hct (42.0-52.0) % MCV (80.0-94.0) fL MCH (27.0-31.0) pg MCHC (32.0-36.0) g/dL RDW (12.0-15.0) % Plt Count (130-450) 10^3/uL MPV (7.4-11.4) fL Neut # (Auto) (1.5-6.6) 10^3/uL Lymph # (Auto) (1.5-3.5) 10^3/uL Letcher # (Auto) (0.0-1.0) 10^3/uL Eos # (Auto) (0.0-0.7) 10^3/uL Baso # (Auto) (0.0-0.1) 10^3/uL Absolute Nucleated RBC x10^3/uL Nucleated RBC % /100WBC VBG pH 7.441 H (7.31-7.41) Ionized Calcium 1.11 L YES (1.15-1.33) mmol/L Sodium 139 (135-145) mmol/L Potassium 3.0 L (3.5-5.0) mmol/L Chloride 103 (101-111) mmol/L Carbon Dioxide 28 (21-32) mmol/L Anion Gap 8.0 (6-13) BUN 14 (6-20) mg/dL Creatinine 0.5 L (0.6-1.2) mg/dL Estimated GFR (MDRD) 161 (>89) Glucose 123 H (70-100) mg/dL Glycated Hemoglobin (4.6-6.2) % Estim Average Glucose (70-100) Lactic Acid (0.5-2.2) mmol/L Calcium 7.8 L (8.5-10.3) mg/dL Total Bilirubin 0.9 (0.2-1.0) mg/dL AST 81 H (10-42) IU/L ALT 48 (10-60) IU/L Alkaline Phosphatase 39 L (42-121) IU/L Total Creatine Kinase (22-269) IU/L Total Protein 5.5 L (6.7-8.2) g/dL Albumin 1.8 L (3.2-5.5) g/dL Globulin 3.7 (2.1-4.2) g/dL Albumin/Globulin Ratio 0.5 L (1.0-2.2) TSH 4.40 (0.34-5.60) uIU/mL 11/10/17 11/10/17 11/10/17 Range/Units 06:00 06:00 06:00 WBC 8.3 (4.8-10.8) x10^3/uL RBC 4.14 L (4.70-6.10) 10^6/uL Hgb 12.0 L (14.0-18.0) g/dL Hct 36.2 L (42.0-52.0) % MCV 87.3 (80.0-94.0) fL MCH 29.0 (27.0-31.0) pg MCHC 33.2 (32.0-36.0) g/dL RDW 18.3 H (12.0-15.0) % Plt Count 183 (130-450) 10^3/uL MPV 9.1 (7.4-11.4) fL Neut # (Auto) 6.5 (1.5-6.6) 10^3/uL Lymph # (Auto) 1.0 L (1.5-3.5) 10^3/uL Letcher # (Auto) 0.6 (0.0-1.0) 10^3/uL Eos # (Auto) 0.1 (0.0-0.7) 10^3/uL Baso # (Auto) 0.0 (0.0-0.1) 10^3/uL Absolute Nucleated RBC 0.01 x10^3/uL Nucleated RBC % 0.1 /100WBC VBG pH (7.31-7.41) Ionized Calcium (1.15-1.33) mmol/L Sodium (135-145) mmol/L Potassium (3.5-5.0) mmol/L Chloride (101-111) mmol/L Carbon Dioxide (21-32) mmol/L Anion Gap (6-13) BUN (6-20) mg/dL Creatinine (0.6-1.2) mg/dL Estimated GFR (MDRD) (>89) Glucose (70-100) mg/dL Glycated Hemoglobin 6.0 (4.6-6.2) % Estim Average Glucose 126 H (70-100) Lactic Acid (0.5-2.2) mmol/L Calcium (8.5-10.3) mg/dL Total Bilirubin (0.2-1.0) mg/dL AST (10-42) IU/L ALT (10-60) IU/L Alkaline Phosphatase (42-121) IU/L Total Creatine Kinase 527 H (22-269) IU/L Total Protein (6.7-8.2) g/dL Albumin (3.2-5.5) g/dL Globulin (2.1-4.2) g/dL Albumin/Globulin Ratio (1.0-2.2) TSH (0.34-5.60) uIU/mL 11/10/17 11/09/17 Range/Units 02:45 23:30 WBC (4.8-10.8) x10^3/uL RBC (4.70-6.10) 10^6/uL Hgb (14.0-18.0) g/dL Hct (42.0-52.0) % MCV (80.0-94.0) fL MCH (27.0-31.0) pg MCHC (32.0-36.0) g/dL RDW (12.0-15.0) % Plt Count (130-450) 10^3/uL MPV (7.4-11.4) fL Neut # (Auto) (1.5-6.6) 10^3/uL Lymph # (Auto) (1.5-3.5) 10^3/uL Letcher # (Auto) (0.0-1.0) 10^3/uL Eos # (Auto) (0.0-0.7) 10^3/uL Baso # (Auto) (0.0-0.1) 10^3/uL Absolute Nucleated RBC x10^3/uL Nucleated RBC % /100WBC VBG pH (7.31-7.41) Ionized Calcium (1.15-1.33) mmol/L Sodium (135-145) mmol/L Potassium (3.5-5.0) mmol/L Chloride (101-111) mmol/L Carbon Dioxide (21-32) mmol/L Anion Gap (6-13) BUN (6-20) mg/dL Creatinine (0.6-1.2) mg/dL Estimated GFR (MDRD) (>89) Glucose (70-100) mg/dL Glycated Hemoglobin (4.6-6.2) % Estim Average Glucose (70-100) Lactic Acid 1.7 2.2 (0.5-2.2) mmol/L Calcium (8.5-10.3) mg/dL Total Bilirubin (0.2-1.0) mg/dL AST (10-42) IU/L ALT (10-60) IU/L Alkaline Phosphatase (42-121) IU/L Total Creatine Kinase (22-269) IU/L Total Protein (6.7-8.2) g/dL Albumin (3.2-5.5) g/dL Globulin (2.1-4.2) g/dL Albumin/Globulin Ratio (1.0-2.2) TSH (0.34-5.60) uIU/mL - Diagnostic Imaging Diagnostic Imaging Comments: XR show non displaced left patella fx, best seen on sunrise view - Other Results/Comments Other Results/Comments: Left knee: Minimal swelling; 1-2 + patellar tenderness. Left knee: 20 degree flexion contracture. Flexes to 60-70 degrees with some pain. Bilateral calves with open wounds R>L and border erythema. Maggots visible on left calf wounds Assessment/Plan - Problem List (1) Left patella fracture Impression: Non displaced and closed fracture PLAN: Knee immobilizer with popiteal pillow to accommodate knee flexion contracture, as needed. With immobilizer on, he can be mobilized and ambulatory - WBAT on left Qualifiers: Encounter type: initial encounter Fracture type: closed Fracture morphology: unspecified fracture morphology Fracture alignment: nondisplaced Qualified Code(s): S82.002A - Unspecified fracture of left patella, initial encounter for closed fracture
[2017-11-10] MEDS ORDERED: HYDROmorphone 0.5 MG/0.5 ML SYRINGE IVP PRN (18:24)
--- NOTE | 2017-11-10 19:41 | CONSULTATION NOTE ---
DATE OF SERVICE: 11/10/2017 Physician: Jr Hernandez MD REFERRING PHYSICIAN: Mariah Harris MD, of the hospitalist service. CHIEF COMPLAINT: "I fell down and hurt my left knee." HISTORY OF PRESENT ILLNESS: Ryan Parry is a 77-year-old, male who has been admitted to [facility], having had several falls over the last week or so. His chronic problems also include sl ow-healing multiple ulcerations, involving both of his lower extremities, right worse than the left. There have been some cellulitic changes, as well as evidence of tissue necrosis, in both legs. He h as been treated for venous stasis ulcerations in the past. Admission x-rays, including x-rays of his left knee, have shown a nondisplaced patella fracture. Patient's past medical history was significa nt for a complex open left distal femur fracture in the , for which he had a surgical fixation o f his fracture, as well as a repair of lacerated arteries and veins of the extremity. Though he did heal this fracture, it appears as if he has had a residual flexion contracture of the leg. He has be en a household ambulator with a walker. PHYSICAL EXAMINATION: Patient's left knee was inspected. He has minimal soft tissue swelling, minim al erythema. He does have 1-2+ tenderness on percussion over his patella. Knee range of motion was somewhat restricted with evidence of about a 20-degree flexion contracture and flexion to about 60 or 70 degrees. Ligaments appear to be stable. Bilateral calves show evidence of rather extensive open ulcerations with some border erythema, partic ularly on the right side. Left side erythema is a little more extensive with soft tissue swelling as well. Several maggots were visible in his wounds on the left side as well. IMAGING: X-rays that were taken of the left knee show a nondisplaced patellar fracture. ASSESSMENT: 1. Closed nondisplaced left patellar fracture. 2. Extensive right worse than left venous stasis ulceration with evidence of cellulitis. PLAN: 1. With regard to his left patellar fracture, would just treat this symptomatically. This should go on to unite uneventfully over the next 4-6 weeks. The patient can be fitted for a knee immobilizer with a posterior popliteal bolster to accommodate his flexion contracture. In the brace, he should b e able to stand and weight bear with minimal discomfort. Have ordered physical therapy to begin work ing on ambulation, weightbearing as tolerated on the left side with the knee in a knee immobilizer. 2. With regard to his venous stasis ulcerations, apparently he is awaiting a wound care consultation , and I would defer his wound management to the clinical education specialist. TD: 11/10/2017 18:41
[2017-11-10] MEDS ORDERED: VANCOMYCIN INJ 1 GM in SODIUM CHLORIDE 0.9% 250 ML IV SCH (21:00)
[2017-11-11] MEDS: SODIUM CHLORIDE FLUSH 0.9% 10 ML SYRINGE IVP SCH ×4 (01:58→21:41)
[2017-11-11] MEDS: MEROPENEM 1 GM in SODIUM CHLORIDE 0.9% MINIBAG 100 ML IV SCH ×2 (05:32→14:01)
[2017-11-11 06:36] LABS: ALBUMIN 1.9 g/dL (3.2-5.5); ALBUMIN/GLOBULIN RATIO 0.5 (1.0-2.2); ALKALINE PHOSPHATASE 45 IU/L (42-121); ALT ALANINE AMINOTRANSFERASE 47 IU/L (10-60); AST ASPARTATE AMINOTRANSFERASE 64 IU/L (10-42); BILIRUBIN,TOTAL 0.9 mg/dL (0.2-1.0); BUN - BLOOD UREA NITROGEN 13 mg/dL (6-20); CALCIUM 7.8 mg/dL (8.5-10.3); CARBON DIOXIDE - CO2 26 mmol/L (21-32); CHLORIDE 104 mmol/L (101-111); CREATININE 0.5 mg/dL (0.6-1.2); GFR - MDRD 161 (>89); GLUCOSE 112 mg/dL (70-100); SODIUM 135 mmol/L (135-145); TOTAL PROTEIN 5.8 g/dL (6.7-8.2)
[2017-11-11 06:40] LABS: BASOPHILS % (AUTO) 0.3 %; EOSINOPHILS # (AUTO) 0.3 10^3/uL (0.0-0.7); EOSINOPHILS % (AUTO) 4.1 %; HGB - HEMOGLOBIN 12.4 g/dL (14.0-18.0); LYMPHOCYTES # (AUTO) 1.3 10^3/uL (1.5-3.5); LYMPHOCYTES % (AUTO) 19.1 %; MEAN CORPUSCULAR HGB CONC 33.1 g/dL (32.0-36.0); MEAN CORPUSCULAR VOLUME 87.6 fL (80.0-94.0); MONOCYTES # (AUTO) 0.5 10^3/uL (0.0-1.0); MONOCYTES % (AUTO) 7.7 %; NEUTROPHILS # (AUTO) 4.6 10^3/uL (1.5-6.6); NEUTROPHILS % (AUTO) 68.8 %; PLT - PLATELET COUNT 186 10^3/uL (130-450); RED BLOOD COUNT 4.27 10^6/uL (4.70-6.10); RED CELL DISTRIBUTION WIDTH 18.4 % (12.0-15.0); WHITE BLOOD COUNT 6.8 x10^3/uL (4.8-10.8)
[2017-11-11 07:13] LABS: VBG PH 7.419 (7.31-7.41)
[2017-11-11] MEDS: ASCORBIC ACID CHEW 500 MG TABLET PO SCH (11:53)
[2017-11-11] MEDS: ENOXAPARIN 40 MG/0.4 ML SYRINGE SUBQ SCH (11:53)
[2017-11-11] MEDS: SACCHAROMYCES BOULARDII 250 MG CAPSULE PO SCH ×2 (11:53→16:35)
[2017-11-11] MEDS: FAMOTIDINE 20 MG TABLET PO SCH (11:53)
[2017-11-11] MEDS: MULTIVITAMIN W/MINERALS TABLET PO SCH (11:53)
[2017-11-11] MEDS: POTASSIUM CHLORIDE 20 MEQ/15 ML UDC PO SCH (11:53)
[2017-11-11] MEDS: NICOTINE 21 MG PATCH TOP SCH (11:53)
[2017-11-11] MEDS: POLYETHYLENE GLYCOL 3350 17 GM PACKET PO SCH (11:53)
[2017-11-11] MEDS: ZINC SULFATE 220 MG CAPSULE PO SCH (11:54)
--- NOTE | 2017-11-11 15:04 | PROVIDER PROGRESS NOTE ---
Subjective - Prog Note Date Prog Note Date: 11/11/17 Prog Note Time: 15:23 - Subjective Pt reports feeling: Improved Subjective: He is eating 100% of all of his meals. His main complaint continues to be that left knee pain. Plain film showed a fractured patella. His wounds have been debrided by Dr. Hernandez. And a wound evaluation with the wound consult has not been done other than Dr. Hernandez's orders. He was have scratch that he did have a swallow evaluation yesterday late morning where he has a mechanical soft diet due to lack of teeth. Thin liquids okay. Medications need to be whole tablets with liquid as tolerated. . Current Medications - Current Medications Current Medications: Active Medications Acetaminophen (Tylenol) 650 mg PO Q4HR PRN PRN Reason: Pain 1 to 4 Last Admin: 11/10/17 16:49 Dose: 650 mg Ascorbic Acid (Vitamin C) 500 mg PO DAILY [facility] Last Admin: 11/11/17 11:53 Dose: 500 mg Enoxaparin Sodium (Lovenox) 40 mg SUBQ DAILY [facility] Last Admin: 11/11/17 11:53 Dose: 40 mg Famotidine (Pepcid) 20 mg PO DAILY [facility] Last Admin: 11/11/17 11:53 Dose: 20 mg Hydromorphone HCl (Dilaudid Inj Syringe) 0.5 mg IVP Q2H PRN PRN Reason: PAIN Vancomycin HCl 1 gm/ Sodium (Chloride) 250 mls @ 167 mls/hr IV Q24H [facility] Last Infusion: 11/10/17 22:57 Dose: Infused Meropenem 1 gm/ Sodium (Chloride) 100 mls @ 200 mls/hr IV Q8H [facility] Last Infusion: 11/11/17 14:36 Dose: Infused Ibuprofen (Motrin) 600 mg PO Q6HR PRN PRN Reason: Pain 1 to 4 Last Admin: 11/10/17 00:34 Dose: 600 mg Multivitamins/Minerals (Theragran M) 1 tab PO DAILYWM [facility] Last Admin: 11/11/17 11:53 Dose: 1 tab Nicotine (Nicoderm) 1 patch TOP DAILY [facility] Last Admin: 11/11/17 11:53 Dose: 1 patch Ondansetron HCl (Zofran Inj) 4 mg IVP Q6HR PRN PRN Reason: Nausea / Vomiting Oxycodone HCl (Roxicodone) 5 mg PO Q4HR PRN PRN Reason: Pain 5 to 7 Polyethylene Glycol (Miralax) 17 gm PO DAILY [facility] Last Admin: 11/11/17 11:53 Dose: 17 gm Prochlorperazine Edisylate (Compazine Inj) 10 mg IVP Q6HR PRN PRN Reason: Nausea / Vomiting Promethazine HCl (Phenergan Inj) 25 mg IM Q6HR PRN PRN Reason: Nausea / Vomiting Saccharomyces Boulardii (Florastor) 250 mg PO BIDWM [facility] Last Admin: 11/11/17 11:53 Dose: 250 mg Sodium Chloride (Normal Saline Flush 0.9%) 10 ml IVP PRN PRN PRN Reason: NEEDED PER PROVIDER ORDERS Sodium Chloride (Normal Saline Flush 0.9%) 10 ml IVP 0100,0900,1700 [facility] Last Admin: 11/11/17 11:53 Dose: 10 ml Zinc Sulfate () 220 mg PO DAILY [facility] Last Admin: 11/11/17 11:54 Dose: 220 mg Zolpidem Tartrate (Ambien) 5 mg PO QPM PRN PRN Reason: Insomnia No Known Home Medications [No Known Home Medications] 11/10/17 Objective - Vital Signs/Intake & Output Reviewed Vital Signs: Yes Vital Signs: Vital Signs x48h Temp Pulse Resp BP Pulse Ox 11/11/17 08:00 36.6 C 84 18 124/77 94 Intake & Output: Intake & Output 11/08/17 11/09/17 11/10/17 11/11/17 23:59 23:59 23:59 23:59 Intake Total 1600 4180 3060 Output Total 800 850 Balance 1600 3380 2210 - Objective General Appearance: positive: No acute distress, Alert Eyes Bilateral: positive: PERRL ENT: positive: Other (Partially edentulous, poor dentition for what he has left. His dehydration with dry oral mucosa has improved tremendously.) Neck: positive: No JVD. negative: Stiff neck, Carotid bruit Respiratory: positive: Chest non-tender, Wheezes. negative: Rales, Rhonchi Cardiovascular: positive: Regular rate & rhythm, Systolic murmur. negative: Gallop/S4, Friction rub Abdomen: positive: Non-tender, No organomegaly, Nml bowel sounds, No distention Skin: positive: Warm, Dry Extremities: positive: No pedal edema, Other (Left lateral thigh with a bumpy red rash that was present since admission. I think that is where he lay on his side on the floor. The right leg has loss of almost all of his skin from the distal two thirds of his mitchell down. In addition to the loss of skin with bright red changes, he has deep eschars on the lateral right leg. The left leg also has loss of skin all the way down to the foot. The upper third of both shins is covered with deep scaling skin. Deep scaling skin is seen in the top of both feet. Thick yellow nails that are overgrown and crossing over are seen. He has severe edema of both feet. That is much improved from admission.) . negative: Full ROM (Within left knee partially flexed permanently) Neurologic/Psychiatric: positive: CN's nml (2-12) (But he may be deaf. He is definitely got decreased hearing and sometimes I have to repeat myself), Disoriented to time. negative: Motor nml (Generalized weakness and is severely cachectic elderly man) - Lab Results Fish Bones: 11/11/17 06:15 11/11/17 06:15 Other Labs: Lab Results x24hrs 11/11/17 11/11/17 11/11/17 Range/Units 06:15 06:15 06:15 WBC (4.8-10.8) x10^3/uL RBC (4.70-6.10) 10^6/uL Hgb (14.0-18.0) g/dL Hct (42.0-52.0) % MCV (80.0-94.0) fL MCH (27.0-31.0) pg MCHC (32.0-36.0) g/dL RDW (12.0-15.0) % Plt Count (130-450) 10^3/uL MPV (7.4-11.4) fL Neut # (Auto) (1.5-6.6) 10^3/uL Lymph # (Auto) (1.5-3.5) 10^3/uL Bartholomew # (Auto) (0.0-1.0) 10^3/uL Eos # (Auto) (0.0-0.7) 10^3/uL Baso # (Auto) (0.0-0.1) 10^3/uL Absolute Nucleated RBC x10^3/uL Nucleated RBC % /100WBC VBG pH 7.419 H (7.31-7.41) Ionized Calcium 1.11 L YES (1.15-1.33) mmol/L Sodium 135 (135-145) mmol/L Potassium 4.4 (3.5-5.0) mmol/L Chloride 104 (101-111) mmol/L Carbon Dioxide 26 (21-32) mmol/L Anion Gap 5.0 L (6-13) BUN 13 (6-20) mg/dL Creatinine 0.5 L (0.6-1.2) mg/dL Estimated GFR (MDRD) 161 (>89) Glucose 112 H (70-100) mg/dL Calcium 7.8 L (8.5-10.3) mg/dL Total Bilirubin 0.9 (0.2-1.0) mg/dL AST 64 H (10-42) IU/L ALT 47 (10-60) IU/L Alkaline Phosphatase 45 (42-121) IU/L Total Creatine Kinase 339 H (22-269) IU/L Total Protein 5.8 L (6.7-8.2) g/dL Albumin 1.9 L (3.2-5.5) g/dL Globulin 3.9 (2.1-4.2) g/dL Albumin/Globulin Ratio 0.5 L (1.0-2.2) 11/11/17 Range/Units 06:15 WBC 6.8 (4.8-10.8) x10^3/uL RBC 4.27 L (4.70-6.10) 10^6/uL Hgb 12.4 L (14.0-18.0) g/dL Hct 37.4 L (42.0-52.0) % MCV 87.6 (80.0-94.0) fL MCH 29.0 (27.0-31.0) pg MCHC 33.1 (32.0-36.0) g/dL RDW 18.4 H (12.0-15.0) % Plt Count 186 (130-450) 10^3/uL MPV 9.0 (7.4-11.4) fL Neut # (Auto) 4.6 (1.5-6.6) 10^3/uL Lymph # (Auto) 1.3 L (1.5-3.5) 10^3/uL Bartholomew # (Auto) 0.5 (0.0-1.0) 10^3/uL Eos # (Auto) 0.3 (0.0-0.7) 10^3/uL Baso # (Auto) 0.0 (0.0-0.1) 10^3/uL Absolute Nucleated RBC 0.02 x10^3/uL Nucleated RBC % 0.2 /100WBC VBG pH (7.31-7.41) Ionized Calcium (1.15-1.33) mmol/L Sodium (135-145) mmol/L Potassium (3.5-5.0) mmol/L Chloride (101-111) mmol/L Carbon Dioxide (21-32) mmol/L Anion Gap (6-13) BUN (6-20) mg/dL Creatinine (0.6-1.2) mg/dL Estimated GFR (MDRD) (>89) Glucose (70-100) mg/dL Calcium (8.5-10.3) mg/dL Total Bilirubin (0.2-1.0) mg/dL AST (10-42) IU/L ALT (10-60) IU/L Alkaline Phosphatase (42-121) IU/L Total Creatine Kinase (22-269) IU/L Total Protein (6.7-8.2) g/dL Albumin (3.2-5.5) g/dL Globulin (2.1-4.2) g/dL Albumin/Globulin Ratio (1.0-2.2) ABX Reporting Has patient been on IV antibiotics over the past 48 hours?: Yes Assessment/Plan - Problem List (1) Sepsis Impression: Resolved. Patient presented with leukocytosis of 11.5, lactic acidosis 4.5, tachycardia with heart rate of 110, and tachypneic with respiratory rate of 29. The patient was also confused and had altered mental status on presentation. The patient had generalized weakness prior to coming in and was found on the floor at his home. The patient appears to have severe sepsis on presentation with likely source being lower extremity cellulitis. The patient has erythema, swelling and pain of bilateral lower extremities with multiple wounds especially on the right lower extremity. The patient's urinalysis was negative and he did not have any respiratory symptoms to suggest pneumonia. The patient was admitted for severe sepsis likely secondary to cellulitis. With empiric antibiotic therapy in the form of Zosyn and vancomycin his leukocytosis is now resolved and it was 8 with Lactic acid below 2 on the day after admission. Today is day #3 of his stay. Because there is literature around the use of combination vancomycin and Zosyn causing acute kidney injury, we changed his Zosyn to meropenem. Plan: IV vancomycin and Meropenem to treat for bilateral lower extremity cellulitis, Day #3 Vancomycin and Day #2 meropenem. IV fluids Blood cultures are negative and his wound culture is beta hemolytic Strep group G and proteus. The wounds do show gram-negative and gram-positive bacilli. Will stop the vancomycin and go back to zosyn for the Strep and Proteus coverage. We can stop monitoring lactic acid since it is now normal Telemetry monitoring was done for 24 hours and stopped. Continue to closely monitor blood pressure (2) Cellulitis Conclusion/Plan: Patient presented with severe sepsis and the sepsis is resolved and appears to have bilateral lower extremity cellulitis worse on the left but with severe wounds on the right. Patient's legs and wounds are foul-smelling and wounds on the right lower extremity had maggots which were removed in the ER. Patient had some altered mental status and appeared very dry on examination. He has improved with his mental status, and is not as dehydrated Plan: IV vancomycin Day #2 and Zosyn Changed to meropenem, day #2 Now stop vancomycin and go back to zosyn Wound care With [facility] clinic consult IV fluids Continue Blood and wound cultures reviewed as above. Contact precautions can be stopped since cultures returned Orthopedics consulted and seen 11/10. Dr. Hernandez did debride somewhat but doesn't need to go to OR and no MRI needed. Qualifiers: Site of cellulitis: extremity Site of cellulitis of extremity: lower extremity Laterality: unspecified laterality Qualified Code(s): L03.119 - Cellulitis of unspecified part of limb (3) Rhabdomyolysis Conclusion/Plan: Patient was found on the floor by his daughter and according to patient he was on the floor for 3 days but according to the daughter he was seen yesterday and looked to be fine. Unclear exactly how long the patient was on the floor but it appears that he has developed some mild rhabdomyolysis with a total CK of 1008. Patient does not have any renal failure secondary to the rhabdomyolysis. Plan: IV fluids Monitor total CK. He is down to 339 from 1008 Monitor creatinine and electrolytes Physical therapy consult given multiple falls and generalized weakness. See below with knee fracture report. Qualifiers: Rhabdomyolysis type: non-traumatic Qualified Code(s): M62.82 - Rhabdomyolysis (4) Wound, open, leg Conclusion/Plan: Patient has multiple wounds on bilateral lower extremities worse on the right. These appear to be chronic wounds that appear now to be infected and are foul- smelling with maggots. The patient has not seen a primary care physician in over 2 years and has obviously been neglecting his health. The patient's family state that they check in on him every few days but it appears the patient is getting nowhere near the help that he needs. The patient's wounds and legs appear to be infected. Plan: Wound care consult Social work consult for assistance with home health services, possible placement and wound care. His son states dad will never go to a prison. He will absolutely refuse it. He is asking for a list of private in-home providers they can hire, or agencies they can go through. hollow handle bench worker has given him the list. IV antibiotics to treat cellulitis. Continue with changes as above. Day #3 of antibiotics. Orthopedic consult for possible debridement called to Dr. Hernandez and none needed. ABIs and possibly lower extremity angiogram as patient's dorsalis pedis pulse is very weak Consider MRI to look for possible osteomyelitis If Dr. Hernandez feels it is necessary. He does not so not ordered. He might be a candidate for hyperbaric treatment. I will ask Dr. Hernandez what the criteria are. Qualifiers: Encounter type: initial encounter Laterality: unspecified laterality Qualified Code(s): S81.809A - Unspecified open wound, unspecified lower leg, initial encounter (5) Hypertension Conclusion/Plan: Resolved. Patient's blood pressure is elevated on presentation with a blood pressure of 146/102. This may be secondary to pain as the patient does have quite a bit of pain in his left lower extremity. The patient states he does not have previous diagnosis of hypertension. The patient is not on any medications at this time. We will continue to monitor the patient's blood pressure while he is hospitalized and start him on antihypertensive medications if necessary. For now we will control the patient's pain and give him IV fluids for his dehydration and severe sepsis. But with that treatment, his blood pressure is been anywhere from 108 systolic to 119 systolic on the first day. Today, day #3 , he is 120s/70's. So no antihypertensives at this time. Qualifiers: Hypertension type: unspecified Qualified Code(s): I10 - Essential (primary ) hypertension (6) Hyperglycemia With a history of type 2 diabetes mellitus, controlled, not on insulin. Conclusion/Plan: The patient's blood glucose is elevated at 169 on presentation. According to the patient he has been diagnosed with prediabetes in the past but in reviewing centricity he carries a diagnosis of diabetes. The patient is not on any medications at this time for diabetes. A1c is 6% and we didconsider starting him on sliding scale insulin or medications prior to discharge But with his age and comorbidity, most likely he will go home without medication.. For now we will monitor his blood glucose daily. Patient will be placed on regular diet for now and will no diabetic diet bc of his overall malnutrition and A1c acceptable. (7) Elevated LFTs Conclusion/Plan: Improved and resolving, but still not nml. The patient does have elevated LFTs with AST of 117 and ALT of 64. These may be elevated secondary to severe sepsis with endorgan damage. We will continue to monitor his LFTs daily if they continue to be elevated we will need to consider hepatitis panel and further workup. If they improve with IV fluids and treatment of his severe sepsis we will conclude that they were likely elevated due to severe sepsis. His AST is down 117>81>67. ALT is normal. (8) Dehydration Conclusion/Plan: The patient appeared to be severely dehydrated on presentation. The patient's chloride was low at 99 and his mouth was very dry. According to the patient's family had been eating and drinking well until day before admission. The patient however stated that he been lying on the floor for the last 3 days. The patient may just be dehydrated secondary to infection as he did have an elevated lactic acid. We continue to give the patient IV fluids and monitor his electrolytes and kidney function.We also suspect that he has malnutrition and dehydration that has been chronic and ongoing. It is puzzling to us that the family feels that this is a recent acute event but the medical record with regards to weight loss shows differently and his exam shows chronicity of illness. (9) Hypothyroidism Conclusion/Plan: Borderline. Patient has a history of hypothyroidism and is on Synthroid at home. Patient has not been taking his home medications for several months and possibly years. He has not seen his primary care physician in 2 years. For now we will check the patient's TSH and then consider starting him back on his previous dose of Synthroid. His TSH is 4. At this time we will hold off on resuming medication since this is borderline hypothyroidism. Qualifiers: Hypothyroidism type: unspecified Qualified Code(s): E03.9 - Hypothyroidism , unspecified (10) Tobacco abuse Conclusion/Plan: The patient continues to smoke half a pack a day and cigars. The patient states he has been smoking for almost 60 years now. He does not plan on stopping. We did explain to him the adverse effects of smoking and gave him counseling. The patient was offered a nicotine patch while he is hospitalized. (11) Failure to thrive. Conclusion/Plan: Causes could be from adjustment disorder and the loss of his where he has never recovered vs. Cognitive deficit of aging vs. An undiagnosed depressive disorder. He does have a history of depression noted in April 2006. In any case, the patient has gone from 206 pounds 240 pounds between 2006 and 2015. He does have a history of an elevated PSA but that was evaluated with a biopsy by Dr. Martínez in 2013 and pathology was negative. There is a possibility of a neoplasm we are missing is the cause of his failure to thrive but it is not presenting itself. Chest x-ray does not show lung neoplasm. In any case, he is not doing well. I do not know how much we will be able to help him to regain his status. Son shares that dad will never go to a residential facility and they were in the process of trying to hire in-home support services. Social work feels that a APS referral for self neglect is in order and I agree. (12) Fracture of left patella He was seen by Dr. Hernandez yesterday who reviewed the film. He has recommended a knee immobilizer. 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 Dr. Hernandez recommended a rolled small towel behind the knee in the popliteal fossa and in the knee immobilizer over that. Patient is not tolerating that at all so he may end up not needing the knee immobilizer. He has worked with physical therapy today. Per physical therapy "Pt demonstrates poor activity tolerance and requires increased assist to complete all ADLs and functional mobility tasks. Pt would benefit from SNF for continued therapy services once discharged from this facility." So ar the patient says no to Rehab at SNF. Family is working on it. . Qualifiers: Qualified Code(s): A41.9 - Sepsis, unspecified organism
[2017-11-11] MEDS: PIPERACILLIN/TAZOBACTAM 3.375 GM in SODIUM CHLORIDE 0.9% MINIBAG 100 ML IV SCH ×2 (16:35→21:41)
[2017-11-11] MEDS ORDERED: MIN OIL/DIMETHICON/COCONUT OIL 92 GM TUBE TOP PRN (18:05)
[2017-11-12] MEDS: PIPERACILLIN/TAZOBACTAM 3.375 GM in SODIUM CHLORIDE 0.9% MINIBAG 100 ML IV SCH ×4 (04:36→21:24)
[2017-11-12] MEDS: SODIUM CHLORIDE FLUSH 0.9% 10 ML SYRINGE IVP SCH ×3 (04:53→16:42)
[2017-11-12 06:39] LABS: BASOPHILS % (AUTO) 0.3 %; EOSINOPHILS # (AUTO) 0.2 10^3/uL (0.0-0.7); EOSINOPHILS % (AUTO) 3.6 %; HGB - HEMOGLOBIN 11.6 g/dL (14.0-18.0); LYMPHOCYTES # (AUTO) 1.1 10^3/uL (1.5-3.5); LYMPHOCYTES % (AUTO) 16.1 %; MEAN CORPUSCULAR HEMOGLOBIN 28.7 pg (27.0-31.0); MEAN CORPUSCULAR VOLUME 86.9 fL (80.0-94.0); MEAN PLATELET VOLUME 8.9 fL (7.4-11.4); MONOCYTES # (AUTO) 0.6 10^3/uL (0.0-1.0); MONOCYTES % (AUTO) 8.1 %; NEUTROPHILS % (AUTO) 71.9 %; PLT - PLATELET COUNT 206 10^3/uL (130-450); RED BLOOD COUNT 4.04 10^6/uL (4.70-6.10)
[2017-11-12 06:54] LABS: ALBUMIN 1.7 g/dL (3.2-5.5); ALBUMIN/GLOBULIN RATIO 0.5 (1.0-2.2); ALKALINE PHOSPHATASE 46 IU/L (42-121); ALT ALANINE AMINOTRANSFERASE 36 IU/L (10-60); AST ASPARTATE AMINOTRANSFERASE 42 IU/L (10-42); BILIRUBIN,TOTAL 0.5 mg/dL (0.2-1.0); BUN - BLOOD UREA NITROGEN 12 mg/dL (6-20); CALCIUM 7.8 mg/dL (8.5-10.3); CARBON DIOXIDE - CO2 28 mmol/L (21-32); CHLORIDE 103 mmol/L (101-111); CREATININE 0.4 mg/dL (0.6-1.2); GFR - MDRD 209 (>89); GLUCOSE 114 mg/dL (70-100); SODIUM 135 mmol/L (135-145); TOTAL PROTEIN 5.4 g/dL (6.7-8.2)
[2017-11-12 07:16] LABS: VBG PH 7.452 (7.31-7.41)
[2017-11-12] MEDS: MULTIVITAMIN W/MINERALS TABLET PO SCH (09:38)
[2017-11-12] MEDS: ASCORBIC ACID CHEW 500 MG TABLET PO SCH (09:38)
[2017-11-12] MEDS: SACCHAROMYCES BOULARDII 250 MG CAPSULE PO SCH ×2 (09:38→16:42)
[2017-11-12] MEDS: ENOXAPARIN 40 MG/0.4 ML SYRINGE SUBQ SCH (09:38)
[2017-11-12] MEDS: FAMOTIDINE 20 MG TABLET PO SCH (09:38)
[2017-11-12] MEDS: ZINC OXIDE 20% OINT 28.35 GM TUBE TOP PRN (09:40)
[2017-11-12] MEDS: NICOTINE 21 MG PATCH TOP SCH (09:40)
[2017-11-12] MEDS: POLYETHYLENE GLYCOL 3350 17 GM PACKET PO SCH (09:40)
[2017-11-12] MEDS: ZINC SULFATE 220 MG CAPSULE PO SCH (09:53)
[2017-11-12] MEDS: IBUPROFEN 600 MG TABLET PO PRN (10:49)
--- NOTE | 2017-11-12 12:44 | PROVIDER PROGRESS NOTE ---
Subjective - Prog Note Date Prog Note Date: 11/12/17 Prog Note Time: 12:42 - Subjective Pt reports feeling: Improved (No new complaints) Objective - Vital Signs/Intake & Output Vital Signs: Vital Signs x48h Temp Pulse Resp BP Pulse Ox 11/12/17 07:34 36.4 C L 101 H 21 109/67 92 Intake & Output: Intake & Output 11/09/17 11/10/17 11/11/17 11/12/17 23:59 23:59 23:59 23:59 Intake Total 1600 4180 3500 750 Output Total 800 850 300 Balance 1600 3380 2650 450 - Lab Results Fish Bones: 11/12/17 06:10 11/12/17 06:10 Other Labs: Lab Results x24hrs 11/12/17 11/12/17 11/12/17 Range/Units 06:10 06:10 06:10 WBC (4.8-10.8) x10^3/uL RBC (4.70-6.10) 10^6/uL Hgb (14.0-18.0) g/dL Hct (42.0-52.0) % MCV (80.0-94.0) fL MCH (27.0-31.0) pg MCHC (32.0-36.0) g/dL RDW (12.0-15.0) % Plt Count (130-450) 10^3/uL MPV (7.4-11.4) fL Neut # (Auto) (1.5-6.6) 10^3/uL Lymph # (Auto) (1.5-3.5) 10^3/uL Callaway # (Auto) (0.0-1.0) 10^3/uL Eos # (Auto) (0.0-0.7) 10^3/uL Baso # (Auto) (0.0-0.1) 10^3/uL Absolute Nucleated RBC x10^3/uL Nucleated RBC % /100WBC VBG pH 7.452 H (7.31-7.41) Ionized Calcium 1.12 L YES (1.15-1.33) mmol/L Sodium 135 (135-145) mmol/L Potassium 4.3 (3.5-5.0) mmol/L Chloride 103 (101-111) mmol/L Carbon Dioxide 28 (21-32) mmol/L Anion Gap 4.0 L (6-13) BUN 12 (6-20) mg/dL Creatinine 0.4 L (0.6-1.2) mg/dL Estimated GFR (MDRD) 209 (>89) Glucose 114 H (70-100) mg/dL Calcium 7.8 L (8.5-10.3) mg/dL Total Bilirubin 0.5 (0.2-1.0) mg/dL AST 42 (10-42) IU/L ALT 36 (10-60) IU/L Alkaline Phosphatase 46 (42-121) IU/L Total Creatine Kinase 157 (22-269) IU/L Total Protein 5.4 L (6.7-8.2) g/dL Albumin 1.7 L (3.2-5.5) g/dL Globulin 3.7 (2.1-4.2) g/dL Albumin/Globulin Ratio 0.5 L (1.0-2.2) 11/12/17 Range/Units 06:10 WBC 7.0 (4.8-10.8) x10^3/uL RBC 4.04 L (4.70-6.10) 10^6/uL Hgb 11.6 L (14.0-18.0) g/dL Hct 35.1 L (42.0-52.0) % MCV 86.9 (80.0-94.0) fL MCH 28.7 (27.0-31.0) pg MCHC 33.0 (32.0-36.0) g/dL RDW 18.0 H (12.0-15.0) % Plt Count 206 (130-450) 10^3/uL MPV 8.9 (7.4-11.4) fL Neut # (Auto) 5.0 (1.5-6.6) 10^3/uL Lymph # (Auto) 1.1 L (1.5-3.5) 10^3/uL Callaway # (Auto) 0.6 (0.0-1.0) 10^3/uL Eos # (Auto) 0.2 (0.0-0.7) 10^3/uL Baso # (Auto) 0.0 (0.0-0.1) 10^3/uL Absolute Nucleated RBC 0.01 x10^3/uL Nucleated RBC % 0.2 /100WBC VBG pH (7.31-7.41) Ionized Calcium (1.15-1.33) mmol/L Sodium (135-145) mmol/L Potassium (3.5-5.0) mmol/L Chloride (101-111) mmol/L Carbon Dioxide (21-32) mmol/L Anion Gap (6-13) BUN (6-20) mg/dL Creatinine (0.6-1.2) mg/dL Estimated GFR (MDRD) (>89) Glucose (70-100) mg/dL Calcium (8.5-10.3) mg/dL Total Bilirubin (0.2-1.0) mg/dL AST (10-42) IU/L ALT (10-60) IU/L Alkaline Phosphatase (42-121) IU/L Total Creatine Kinase (22-269) IU/L Total Protein (6.7-8.2) g/dL Albumin (3.2-5.5) g/dL Globulin (2.1-4.2) g/dL Albumin/Globulin Ratio (1.0-2.2) - Other Results/Comments Other Results/Comments: EXAM: Sitting up in chair, eating with knee immobilizer on. Comfortable. Able to do SLR with knee immobilizer on without pain or difficulty. Assessment/Plan - Problem List (1) Left patella fracture Impression: stable PLAN: Continue PT and mobilize as tolerated. Qualifiers: Encounter type: initial encounter Fracture type: closed Fracture morphology: unspecified fracture morphology Fracture alignment: nondisplaced Qualified Code(s): S82.002A - Unspecified fracture of left patella, initial encounter for closed fracture
--- NOTE | 2017-11-12 13:46 | PROVIDER PROGRESS NOTE ---
Subjective - Prog Note Date Prog Note Date: 11/12/17 Prog Note Time: 13:54 - Subjective Subjective: he likes the food . son at the bedside and case and care discussed. he wants to go home. denies any severe pain. Current Medications - Current Medications Current Medications: Active Medications Acetaminophen (Tylenol) 650 mg PO Q4HR PRN PRN Reason: Pain 1 to 4 Last Admin: 11/10/17 16:49 Dose: 650 mg Ascorbic Acid (Vitamin C) 500 mg PO DAILY [facility] Last Admin: 11/12/17 09:38 Dose: 500 mg Enoxaparin Sodium (Lovenox) 40 mg SUBQ DAILY [facility] Last Admin: 11/12/17 09:38 Dose: 40 mg Famotidine (Pepcid) 20 mg PO DAILY [facility] Last Admin: 11/12/17 09:38 Dose: 20 mg Hydromorphone HCl (Dilaudid Inj Syringe) 0.5 mg IVP Q2H PRN PRN Reason: PAIN Last Admin: 11/11/17 21:40 Dose: 0.5 mg Piperacillin Sod/Tazobactam (Sod 3.375 gm/ Sodium Chloride) 100 mls @ 200 mls/ hr IV Q6H [facility] Last Infusion: 11/12/17 10:10 Dose: Infused Ibuprofen (Motrin) 600 mg PO Q6HR PRN PRN Reason: Pain 1 to 4 Last Admin: 11/12/17 10:49 Dose: 600 mg Mineral Oil (Cavilon) 1 applic TOP PRN PRN PRN Reason: Skin Care Multi-Ingredient Ointment (Zinc Oxide) 1 applic TOP PRN PRN PRN Reason: Skin Care Stop: 11/18/17 22:15 Last Admin: 11/12/17 09:40 Dose: 1 applic Multivitamins/Minerals (Theragran M) 1 tab PO DAILYWM [facility] Last Admin: 11/12/17 09:38 Dose: 1 tab Nicotine (Nicoderm) 1 patch TOP DAILY [facility] Last Admin: 11/12/17 09:40 Dose: 1 patch Ondansetron HCl (Zofran Inj) 4 mg IVP Q6HR PRN PRN Reason: Nausea / Vomiting Oxycodone HCl (Roxicodone) 5 mg PO Q4HR PRN PRN Reason: Pain 5 to 7 Last Admin: 11/12/17 04:51 Dose: 5 mg Polyethylene Glycol (Miralax) 17 gm PO DAILY [facility] Last Admin: 11/12/17 09:40 Dose: Not Given Prochlorperazine Edisylate (Compazine Inj) 10 mg IVP Q6HR PRN PRN Reason: Nausea / Vomiting Promethazine HCl (Phenergan Inj) 25 mg IM Q6HR PRN PRN Reason: Nausea / Vomiting Saccharomyces Boulardii (Florastor) 250 mg PO BIDWM [facility] Last Admin: 11/12/17 09:38 Dose: 250 mg Sodium Chloride (Normal Saline Flush 0.9%) 10 ml IVP PRN PRN PRN Reason: NEEDED PER PROVIDER ORDERS Sodium Chloride (Normal Saline Flush 0.9%) 10 ml IVP 0100,0900,1700 [facility] Last Admin: 11/12/17 09:39 Dose: 10 ml Zinc Sulfate () 220 mg PO DAILY [facility] Last Admin: 11/12/17 09:53 Dose: 220 mg Zolpidem Tartrate (Ambien) 5 mg PO QPM PRN PRN Reason: Insomnia No Known Home Medications [No Known Home Medications] 11/10/17 Objective - Vital Signs/Intake & Output Reviewed Vital Signs: Yes Vital Signs: Vital Signs x48h Temp Pulse Resp BP Pulse Ox 11/12/17 07:34 36.4 C L 101 H 21 109/67 92 Intake & Output: Intake & Output 11/09/17 11/10/17 11/11/17 11/12/17 23:59 23:59 23:59 23:59 Intake Total 1600 4180 3500 750 Output Total 800 850 300 Balance 1600 3380 2650 450 - Objective General Appearance: positive: No acute distress, Alert Eyes Bilateral: positive: PERRL ENT: positive: Pharynx nml, Other (bad teeth) Neck: positive: No JVD Respiratory: positive: Chest non-tender, Rhonchi, Other (prolonged end exhalation phase, no RV lift.). negative: Wheezes, Rales Cardiovascular: positive: Regular rate & rhythm. negative: Gallop/S4, Friction rub Abdomen: positive: Non-tender, No organomegaly, Nml bowel sounds, No distention Skin: positive: Warm, Dry, Other (both legs have lost skin starting at middle third and extending to the distal mitchell. The left extends below that to sole of foot. thick white scaling skin at kness and just below. large loss of skin to stage 2>3 on right lateral calf. less of left calf. thick nails.) Extremities: positive: Full ROM Neurologic/Psychiatric: positive: Oriented x3, CN's nml (2-12) (deaafness), Motor nml - Lab Results Fish Bones: 11/12/17 06:10 11/12/17 06:10 Other Labs: Lab Results x24hrs 11/12/17 11/12/17 11/12/17 Range/Units 06:10 06:10 06:10 WBC (4.8-10.8) x10^3/uL RBC (4.70-6.10) 10^6/uL Hgb (14.0-18.0) g/dL Hct (42.0-52.0) % MCV (80.0-94.0) fL MCH (27.0-31.0) pg MCHC (32.0-36.0) g/dL RDW (12.0-15.0) % Plt Count (130-450) 10^3/uL MPV (7.4-11.4) fL Neut # (Auto) (1.5-6.6) 10^3/uL Lymph # (Auto) (1.5-3.5) 10^3/uL Randolph # (Auto) (0.0-1.0) 10^3/uL Eos # (Auto) (0.0-0.7) 10^3/uL Baso # (Auto) (0.0-0.1) 10^3/uL Absolute Nucleated RBC x10^3/uL Nucleated RBC % /100WBC VBG pH 7.452 H (7.31-7.41) Ionized Calcium 1.12 L YES (1.15-1.33) mmol/L Sodium 135 (135-145) mmol/L Potassium 4.3 (3.5-5.0) mmol/L Chloride 103 (101-111) mmol/L Carbon Dioxide 28 (21-32) mmol/L Anion Gap 4.0 L (6-13) BUN 12 (6-20) mg/dL Creatinine 0.4 L (0.6-1.2) mg/dL Estimated GFR (MDRD) 209 (>89) Glucose 114 H (70-100) mg/dL Calcium 7.8 L (8.5-10.3) mg/dL Total Bilirubin 0.5 (0.2-1.0) mg/dL AST 42 (10-42) IU/L ALT 36 (10-60) IU/L Alkaline Phosphatase 46 (42-121) IU/L Total Creatine Kinase 157 (22-269) IU/L Total Protein 5.4 L (6.7-8.2) g/dL Albumin 1.7 L (3.2-5.5) g/dL Globulin 3.7 (2.1-4.2) g/dL Albumin/Globulin Ratio 0.5 L (1.0-2.2) 11/12/17 Range/Units 06:10 WBC 7.0 (4.8-10.8) x10^3/uL RBC 4.04 L (4.70-6.10) 10^6/uL Hgb 11.6 L (14.0-18.0) g/dL Hct 35.1 L (42.0-52.0) % MCV 86.9 (80.0-94.0) fL MCH 28.7 (27.0-31.0) pg MCHC 33.0 (32.0-36.0) g/dL RDW 18.0 H (12.0-15.0) % Plt Count 206 (130-450) 10^3/uL MPV 8.9 (7.4-11.4) fL Neut # (Auto) 5.0 (1.5-6.6) 10^3/uL Lymph # (Auto) 1.1 L (1.5-3.5) 10^3/uL [place] # (Auto) 0.6 (0.0-1.0) 10^3/uL Eos # (Auto) 0.2 (0.0-0.7) 10^3/uL Baso # (Auto) 0.0 (0.0-0.1) 10^3/uL Absolute Nucleated RBC 0.01 x10^3/uL Nucleated RBC % 0.2 /100WBC VBG pH (7.31-7.41) Ionized Calcium (1.15-1.33) mmol/L Sodium (135-145) mmol/L Potassium (3.5-5.0) mmol/L Chloride (101-111) mmol/L Carbon Dioxide (21-32) mmol/L Anion Gap (6-13) BUN (6-20) mg/dL Creatinine (0.6-1.2) mg/dL Estimated GFR (MDRD) (>89) Glucose (70-100) mg/dL Calcium (8.5-10.3) mg/dL Total Bilirubin (0.2-1.0) mg/dL AST (10-42) IU/L ALT (10-60) IU/L Alkaline Phosphatase (42-121) IU/L Total Creatine Kinase (22-269) IU/L Total Protein (6.7-8.2) g/dL Albumin (3.2-5.5) g/dL Globulin (2.1-4.2) g/dL Albumin/Globulin Ratio (1.0-2.2) ABX Reporting Has patient been on IV antibiotics over the past 48 hours?: Yes Assessment/Plan - Problem List (1) Sepsis Impression: Resolved. Patient presented with leukocytosis of 11.5, lactic acidosis 4.5, tachycardia with heart rate of 110, and tachypneic with respiratory rate of 29. The patient was also confused and had altered mental status on presentation. The patient had generalized weakness prior to coming in and was found on the floor at his home. The patient appears to have severe sepsis on presentation with likely source being lower extremity cellulitis. The patient has erythema, swelling and pain of bilateral lower extremities with multiple wounds especially on the right lower extremity. The patient's urinalysis was negative and he did not have any respiratory symptoms to suggest pneumonia. The patient was admitted for severe sepsis likely secondary to cellulitis. With empiric antibiotic therapy in the form of Zosyn and vancomycin his leukocytosis is now resolved and it was 8 with Lactic acid below 2 on the day after admission. Today is day #4 of his stay. Because there is literature around the use of combination vancomycin and Zosyn causing acute kidney injury, we changed his Zosyn to meropenem. Plan: IV vancomycin and Meropenem to treat for bilateral lower extremity cellulitis, s /p Day #3 Vancomycin and Day #2 meropenem. IV fluids Blood cultures are negative and his wound culture is beta hemolytic Strep group G and proteus. The wounds do show gram-negative and gram-positive bacilli. Will stop the vancomycin and go back to zosyn for the Strep and Proteus coverage , Day #2 We can stop monitoring lactic acid since it is now normal Telemetry monitoring was done for 24 hours and stopped. Continue to closely monitor blood pressure (2) Cellulitis Conclusion/Plan: Patient presented with severe sepsis and the sepsis is resolved and appears to have bilateral lower extremity cellulitis worse on the left but with severe wounds on the right. Patient's legs and wounds were foul-smelling and wounds on the right lower extremity had maggots which were removed in the ER. Patient had some altered mental status and appeared very dry on examination. He has improved with his mental status, and is not as dehydrated Plan: s/p IV vancomycin Day #3 and Zosyn Changed to meropenem, s/p day #2 Now stop vancomycin and go back to zosyn now day #2 Wound care With MAC clinic consult IV fluids Continue Blood and wound cultures reviewed as above. Contact precautions can be stopped since cultures returned Orthopedics consulted and seen /. Dr. Hernandez did debride somewhat but doesn't need to go to OR and no MRI needed. Qualifiers: Site of cellulitis: extremity Site of cellulitis of extremity: lower extremity Laterality: unspecified laterality Qualified Code(s): L03.119 - Cellulitis of unspecified part of limb (3) Rhabdomyolysis Conclusion/Plan: Resolved. Patient was found on the floor by his daughter and according to patient he was on the floor for 3 days but according to the daughter he was seen yesterday and looked to be fine. Unclear exactly how long the patient was on the floor but it appears that he has developed some mild rhabdomyolysis with a total CK of 1008. Patient does not have any renal failure secondary to the rhabdomyolysis. Plan: IV fluids Monitor total CK. He is down to 157 from 1008, now nml. Can stop checking. Monitor creatinine and electrolytes Physical therapy consult given multiple falls and generalized weakness. See below with knee fracture report. Qualifiers: Rhabdomyolysis type: non-traumatic Qualified Code(s): M62.82 - Rhabdomyolysis (4) Wound, open, leg Conclusion/Plan: Patient has multiple wounds on bilateral lower extremities worse on the right. These appear to be chronic wounds that appear now to be infected and are foul- smelling with maggots. The patient has not seen a primary care physician in over 2 years and has obviously been neglecting his health. The patient's family state that they check in on him every few days but it appears the patient is getting nowhere near the help that he needs. The patient's wounds and legs appear to be infected. Plan: Wound care consult done Social work consult for assistance with home health services, possible placement and wound care. His son states dad will never go to a long-term. He will absolutely refuse it. He is asking for a list of private in-home providers they can hire, or agencies they can go through. utility worker film processing has given him the list. IV antibiotics to treat cellulitis. Continue with changes as above. Day #4 of antibiotics. Orthopedic consult for possible debridement called to Dr. Hernandez and none needed. ABIs and possibly lower extremity angiogram as patient's dorsalis pedis pulse is very weak but not needed Consider MRI to look for possible osteomyelitis If Dr. Hernandez feels it is necessary. He does not so not ordered. He might be a candidate for hyperbaric treatment. I will ask Dr. Hernandez what the criteria are. Qualifiers: Encounter type: initial encounter Laterality: unspecified laterality Qualified Code(s): S81.809A - Unspecified open wound, unspecified lower leg, initial encounter (5) Hypertension Conclusion/Plan: Resolved. Patient's blood pressure is elevated on presentation with a blood pressure of 146/102. This may be secondary to pain as the patient does have quite a bit of pain in his left lower extremity. The patient states he does not have previous diagnosis of hypertension. The patient is not on any medications at this time. We will continue to monitor the patient's blood pressure while he is hospitalized and start him on antihypertensive medications if necessary. For now we will control the patient's pain and give him IV fluids for his dehydration and severe sepsis. But with that treatment, his blood pressure is been anywhere from 108 systolic to 119 systolic on the first day. Today, day #4 , he is 120s/70's. So no antihypertensives at this time. Qualifiers: Hypertension type: unspecified Qualified Code(s): I10 - Essential (primary ) hypertension (6) Hyperglycemia With a history of type 2 diabetes mellitus, controlled, not on insulin. Conclusion/Plan: The patient's blood glucose is elevated at 169 on presentation. According to the patient he has been diagnosed with prediabetes in the past but in reviewing centricity he carries a diagnosis of diabetes. The patient is not on any medications at this time for diabetes. A1c is 6% and we did consider starting him on sliding scale insulin or medications prior to discharge But with his age and comorbidity, most likely he will go home without medication.. For now we will monitor his blood glucose daily. Patient will be placed on regular diet for now and will no diabetic diet bc of his overall malnutrition and A1c acceptable. (7) Elevated LFTs Conclusion/Plan: Improved and resolving, but still not nml. The patient does have elevated LFTs with AST of 117 and ALT of 64. These may be elevated secondary to severe sepsis with endorgan damage. We will continue to monitor his LFTs daily if they continue to be elevated we will need to consider hepatitis panel and further workup. If they improve with IV fluids and treatment of his severe sepsis we will conclude that they were likely elevated due to severe sepsis. His AST is down 117>81>67>42. ALT is normal. (8) Dehydration Conclusion/Plan: The patient appeared to be severely dehydrated on presentation. The patient's chloride was low at 99 and his mouth was very dry. According to the patient's family had been eating and drinking well until day before admission. The patient however stated that he been lying on the floor for the last 3 days. The patient may just be dehydrated secondary to infection as he did have an elevated lactic acid. We continue to give the patient IV fluids and monitor his electrolytes and kidney function.We also suspect that he has malnutrition and dehydration that has been chronic and ongoing. It is puzzling to us that the family feels that this is a recent acute event but the medical record with regards to weight loss shows differently and his exam shows chronicity of illness. (9) Hypothyroidism Conclusion/Plan: Borderline. Patient has a history of hypothyroidism and is on Synthroid at home. Patient has not been taking his home medications for several months and possibly years. He has not seen his primary care physician in 2 years. For now we will check the patient's TSH and then consider starting him back on his previous dose of Synthroid. His TSH is 4. At this time we will hold off on resuming medication since this is borderline hypothyroidism. Qualifiers: Hypothyroidism type: unspecified Qualified Code(s): E03.9 - Hypothyroidism , unspecified (10) Tobacco abuse Conclusion/Plan: The patient continues to smoke half a pack a day and cigars. The patient states he has been smoking for almost 60 years now. He does not plan on stopping. We did explain to him the adverse effects of smoking and gave him counseling. The patient was offered a nicotine patch while he is hospitalized. (11) Failure to thrive. Conclusion/Plan: Causes could be from adjustment disorder and the loss of his where he has never recovered vs. Cognitive deficit of aging vs. An undiagnosed depressive disorder. He does have a history of depression noted in April 2006. In any case, the patient has gone from 206 pounds 240 pounds between 2006 and 2015. He does have a history of an elevated PSA but that was evaluated with a biopsy by Dr. Martínez in 2013 and pathology was negative. There is a possibility of a neoplasm we are missing is the cause of his failure to thrive but it is not presenting itself. Chest x-ray does not show lung neoplasm. In any case, he is not doing well. I do not know how much we will be able to help him to regain his status. Son shares that dad will never go to a custodial facility and they were in the process of trying to hire in-home support services. Social work feels that a APS referral for self neglect is in order and I agree. Today he is agreeing to do rehab at [facility]. (12) Fracture of left patella He was seen by Dr. Hernandez who reviewed the film. He has recommended a knee immobilizer. 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 Dr. Hernandez recommended a rolled small towel behind the knee in the popliteal fossa and in the knee immobilizer over that. Patient is not tolerating that at all so he may end up not needing the knee immobilizer. He has worked with physical therapy today. Per physical therapy "Pt demonstrates poor activity tolerance and requires increased assist to complete all ADLs and functional mobility tasks. Pt would benefit from SNF for continued therapy services once discharged from this facility." So ar the patient says no to Rehab at SNF. Family is working on it. . Qualifiers: Qualified Code(s): A41.9 - Sepsis, unspecified organism (13)Chronic protein calorie malnutrition. weight over time. In 2006 he was 206 pounds. In 2007 and 2008 he was 196 pounds. 2011 he was 192 pounds. He dropped 285 by the end of the year. In 2013 he was 176. November 2015 he was 161. With this admission he is 140.8 pounds. followed by Nutrition services and he is eating 100% of his food.
[2017-11-12] MEDS ORDERED: SODIUM CHLORIDE 0.9% 500 ML IV PRN (21:25)
[2017-11-13] MEDS: SODIUM CHLORIDE FLUSH 0.9% 10 ML SYRINGE IVP SCH ×4 (02:13→23:44)
[2017-11-13] MEDS: PIPERACILLIN/TAZOBACTAM 3.375 GM in SODIUM CHLORIDE 0.9% MINIBAG 100 ML IV SCH ×4 (04:17→21:32)
[2017-11-13 06:30] LABS: BASOPHILS # (AUTO) 0.1 10^3/uL (0.0-0.1); BASOPHILS % (AUTO) 0.8 %; EOSINOPHILS # (AUTO) 0.3 10^3/uL (0.0-0.7); EOSINOPHILS % (AUTO) 4.6 %; HGB - HEMOGLOBIN 11.8 g/dL (14.0-18.0); LYMPHOCYTES # (AUTO) 1.4 10^3/uL (1.5-3.5); LYMPHOCYTES % (AUTO) 21.3 %; MEAN CORPUSCULAR HEMOGLOBIN 29.2 pg (27.0-31.0); MEAN CORPUSCULAR HGB CONC 33.5 g/dL (32.0-36.0); MEAN CORPUSCULAR VOLUME 87.2 fL (80.0-94.0); MEAN PLATELET VOLUME 8.6 fL (7.4-11.4); MONOCYTES # (AUTO) 0.6 10^3/uL (0.0-1.0); MONOCYTES % (AUTO) 9.2 %; NEUTROPHILS # (AUTO) 4.1 10^3/uL (1.5-6.6); NEUTROPHILS % (AUTO) 64.1 %; PLT - PLATELET COUNT 218 10^3/uL (130-450); RED BLOOD COUNT 4.05 10^6/uL (4.70-6.10); RED CELL DISTRIBUTION WIDTH 18.7 % (12.0-15.0); WHITE BLOOD COUNT 6.4 x10^3/uL (4.8-10.8)
[2017-11-13 06:43] LABS: ALBUMIN 1.9 g/dL (3.2-5.5); ALBUMIN/GLOBULIN RATIO 0.5 (1.0-2.2); ALKALINE PHOSPHATASE 44 IU/L (42-121); ALT ALANINE AMINOTRANSFERASE 35 IU/L (10-60); AST ASPARTATE AMINOTRANSFERASE 41 IU/L (10-42); BILIRUBIN,TOTAL 0.5 mg/dL (0.2-1.0); BUN - BLOOD UREA NITROGEN 15 mg/dL (6-20); CALCIUM 7.8 mg/dL (8.5-10.3); CARBON DIOXIDE - CO2 29 mmol/L (21-32); CHLORIDE 99 mmol/L (101-111); CREATININE 0.4 mg/dL (0.6-1.2); GFR - MDRD 209 (>89); GLUCOSE 101 mg/dL (70-100); SODIUM 133 mmol/L (135-145); TOTAL PROTEIN 5.8 g/dL (6.7-8.2)
[2017-11-13 06:48] LABS: VBG PH 7.436 (7.31-7.41)
[2017-11-13] MEDS: ENOXAPARIN 40 MG/0.4 ML SYRINGE SUBQ SCH (09:03)
[2017-11-13] MEDS: NICOTINE 21 MG PATCH TOP SCH (09:03)
[2017-11-13] MEDS: ASCORBIC ACID CHEW 500 MG TABLET PO SCH (09:03)
[2017-11-13] MEDS: MULTIVITAMIN W/MINERALS TABLET PO SCH (09:04)
[2017-11-13] MEDS: POLYETHYLENE GLYCOL 3350 17 GM PACKET PO SCH (09:04)
[2017-11-13] MEDS: FAMOTIDINE 20 MG TABLET PO SCH (09:04)
[2017-11-13] MEDS: IBUPROFEN 600 MG TABLET PO PRN (09:04)
[2017-11-13] MEDS: ZINC SULFATE 220 MG CAPSULE PO SCH (09:04)
[2017-11-13] MEDS: SACCHAROMYCES BOULARDII 250 MG CAPSULE PO SCH ×2 (09:04→16:38)
--- NOTE | 2017-11-13 12:34 | PROVIDER PROGRESS NOTE ---
Assessment/Plan - Problem List (1) Left patella fracture Qualifiers: Encounter type: initial encounter Fracture type: closed Fracture morphology: unspecified fracture morphology Fracture alignment: nondisplaced Qualified Code(s): S82.002A - Unspecified fracture of left patella, initial encounter for closed fracture - Current Meds Current Meds: Current Medications Generic Name Dose Route Start Last Admin Trade Name Freq PRN Reason Stop Dose Admin Acetaminophen 650 mg 11/09/17 20:44 11/10/17 16:49 Tylenol PO 650 mg Q4HR PRN Administration Pain 1 to 4 Ascorbic Acid 500 mg 11/10/17 15:00 11/13/17 09:03 Vitamin C PO 500 mg DAILY [facility] Administration Enoxaparin Sodium 40 mg 11/10/17 09:00 11/13/17 09:03 Lovenox SUBQ 40 mg DAILY [facility] Administration Famotidine 20 mg 11/10/17 09:00 11/13/17 09:04 Pepcid PO 20 mg DAILY [facility] Administration Hydromorphone HCl 0.5 mg 11/10/17 18:24 11/11/17 21:40 Dilaudid Inj Syringe IVP 0.5 mg Q2H PRN Administration PAIN Piperacillin Sod/Tazobactam 100 mls @ 200 mls/hr 11/11/17 16:00 11/13/17 11: 31 Sod 3.375 gm/ Sodium Chloride IV Infused Q6H [facility] Infusion Sodium Chloride 500 mls @ 20 mls/hr 11/12/17 21:25 11/13/17 04:49 Normal Saline 0.9% IV 20 mls/hr Q24H PRN Infusion TKO RATE TKO Ibuprofen 600 mg 11/09/17 20:44 11/13/17 09:04 Motrin PO 600 mg Q6HR PRN Administration Pain 1 to 4 Multi-Ingredient Ointment 1 applic 11/11/17 22:16 11/12/17 09:40 Zinc Oxide TOP 11/18/17 22:15 1 applic PRN PRN Administration Skin Care Multivitamins/Minerals 1 tab 11/10/17 15:00 11/13/17 09:04 Theragran M PO 1 tab DAILYWM [facility] Administration Nicotine 1 patch 11/09/17 23:45 11/13/17 09:03 Nicoderm TOP 1 patch DAILY [facility] Administration Oxycodone HCl 5 mg 11/09/17 20:44 11/12/17 04:51 Roxicodone PO 5 mg Q4HR PRN Administration Pain 5 to 7 Polyethylene Glycol 17 gm 11/10/17 09:00 11/13/17 09:04 Miralax PO Not Given DAILY [facility] Percy Yui 250 mg 11/10/17 15:00 11/13/17 09:04 Florastor PO 250 mg BIDWM [facility] Administration Sodium Chloride 10 ml 11/10/17 01:00 11/13/17 09:04 Normal Saline Flush 0.9% IVP Not Given 0100,0900,1700 [facility] Zinc Sulfate 220 mg 11/10/17 15:00 11/13/17 09:04 PO 220 mg DAILY [facility] Administration - Lab Result Fish Bone Diagrams: 11/13/17 06:26 11/13/17 06:26 - Additional Planning Additional Planning Notes: MOBILIZE TOLERATED WITH KNEE IMMOBILIZER ON TO LIMIT KNEE RANGE OF MOTION. Orthopedic follow up in office in 4 weeks for repeat XR to check fracture healing and begin on out of immobilizer active range of motion, as indicated. Objective Vital Signs: Vital Signs - 24 hr 11/12/17 11/13/17 11/13/17 16:01 00:15 08:00 Temperature 36.8 C 36.6 C 36.6 C Heart Rate [ 90 88 92 Brachial] Respiratory 24 18 24 Rate Blood Pressure 110/65 122/80 102/70 [Right Brachial artery] O2 Saturation 95 95 96 Oxygen O2 Source Room air I&O (Last 24 Hrs): Intake and Output Totals x24h 11/11/17 11/12/17 11/13/17 23:59 23:59 23:59 Intake Total 3500 1720 680.333 Output Total 850 875 450 Balance 2650 845 230.333 - Results Results: Laboratory Results WBC 6.4 x10^3/uL (4.8-10.8) 11/13/17 06:26 RBC 4.05 10^6/uL (4.70-6.10) L 11/13/17 06:26 Hgb 11.8 g/dL (14.0-18.0) L 11/13/17 06:26 Hct 35.4 % (42.0-52.0) L 11/13/17 06:26 MCV 87.2 fL (80.0-94.0) 11/13/17 06:26 MCH 29.2 pg (27.0-31.0) 11/13/17 06:26 MCHC 33.5 g/dL (32.0-36.0) 11/13/17 06:26 RDW 18.7 % (12.0-15.0) H 11/13/17 06:26 Plt Count 218 10^3/uL (130-450) 11/13/17 06:26 MPV 8.6 fL (7.4-11.4) 11/13/17 06:26 Neut # (Auto) 4.1 10^3/uL (1.5-6.6) 11/13/17 06:26 Lymph # (Auto) 1.4 10^3/uL (1.5-3.5) L 11/13/17 06:26 [place] # (Auto) 0.6 10^3/uL (0.0-1.0) 11/13/17 06:26 Eos # (Auto) 0.3 10^3/uL (0.0-0.7) 11/13/17 06:26 Baso # (Auto) 0.1 10^3/uL (0.0-0.1) 11/13/17 06:26 Absolute Nucleated RBC 0.02 x10^3/uL 11/13/17 06:26 Nucleated RBC % 0.3 /100WBC 11/13/17 06:26 VBG pH 7.436 (7.31-7.41) H 11/13/17 06:26 Ionized Calcium 1.12 mmol/L (1.15-1.33) L 11/13/17 06:26 Sodium 133 mmol/L (135-145) L 11/13/17 06:26 Potassium 4.0 mmol/L (3.5-5.0) 11/13/17 06:26 Chloride 99 mmol/L (101-111) L 11/13/17 06:26 Carbon Dioxide 29 mmol/L (21-32) 11/13/17 06:26 Anion Gap 5.0 (6-13) L 11/13/17 06:26 BUN 15 mg/dL (6-20) 11/13/17 06:26 Creatinine 0.4 mg/dL (0.6-1.2) L 11/13/17 06:26 Estimated GFR (MDRD) 209 (>89) 11/13/17 06:26 Glucose 101 mg/dL (70-100) H 11/13/17 06:26 Glycated Hemoglobin 6.0 % (4.6-6.2) 11/10/17 06:00 Estim Average Glucose 126 (70-100) H 11/10/17 06:00 Lactic Acid 1.7 mmol/L (0.5-2.2) 11/10/17 02:45 Calcium 7.8 mg/dL (8.5-10.3) L 11/13/17 06:26 Ionized Calcium YES 11/13/17 06:26 Total Bilirubin 0.5 mg/dL (0.2-1.0) 11/13/17 06:26 AST 41 IU/L (10-42) 11/13/17 06:26 ALT 35 IU/L (10-60) 11/13/17 06:26 Alkaline Phosphatase 44 IU/L (42-121) 11/13/17 06:26 Total Creatine Kinase 146 IU/L (22-269) 11/13/17 06:26 Total Protein 5.8 g/dL (6.7-8.2) L 11/13/17 06:26 Albumin 1.9 g/dL (3.2-5.5) L 11/13/17 06:26 Globulin 3.9 g/dL (2.1-4.2) 11/13/17 06:26 Albumin/Globulin Ratio 0.5 (1.0-2.2) L 11/13/17 06:26 Lipase 33 U/L (22-51) 11/09/17 19:57 TSH 4.40 uIU/mL (0.34-5.60) 11/10/17 06:00 Urine Color DARK YELLOW 11/09/17 20:15 Urine Clarity CLEAR (CLEAR) 11/09/17 20:15 Urine pH 6.0 PH (5.0-7.5) 11/09/17 20:15 Ur Specific [place] 1.025 (1.002-1.030) 11/09/17 20:15 Urine Protein 30 mg/dL (NEGATIVE) H 11/09/17 20:15 Urine Glucose (UA) NEGATIVE mg/dL (NEGATIVE) 11/09/17 20:15 Urine Ketones NEGATIVE mg/dL (NEGATIVE) 11/09/17 20:15 Urine Occult Blood TRACE-INTA (NEGATIVE) 11/09/17 20:15 Urine Nitrite NEGATIVE (NEGATIVE) 11/09/17 20:15 Urine Bilirubin NEGATIVE (NEGATIVE) 11/09/17 20:15 Urine Urobilinogen 1 (NORMAL) E.U./dL (NORMAL) 11/09/17 20:15 Ur Leukocyte Esterase NEGATIVE (NEGATIVE) 11/09/17 20:15 Urine RBC None Seen /HPF (0-5) 11/09/17 20:15 Urine WBC 0-3 /HPF (0-3) 11/09/17 20:15 Ur Squamous Epith Cells NONE SEEN (<= Few) 11/09/17 20:15 Urine Bacteria None Seen /HPF (None Seen) 11/09/17 20:15 Ur Microscopic Review INDICATED 11/09/17 20:15 Urine Culture Comments NOT INDICATED 11/09/17 20:15
--- NOTE | 2017-11-13 14:14 | PROVIDER PROGRESS NOTE ---
Subjective - Prog Note Date Prog Note Date: 11/13/17 Prog Note Time: 14:26 - Subjective Subjective: He is not offering much in the form of complaints. Laconic conversational style. He has been up in the chair from his bed. He has been able to walk 20 feet in the room. He started to have some skin shearing on his back and nursing is taking care of that. He denies chest pain. Denies shortness of breath. Wants to know when he can go home. I reminded him that he is going to SNF for rehab but is not happy about that. Current Medications - Current Medications Current Medications: Active Medications Acetaminophen (Tylenol) 650 mg PO Q4HR PRN PRN Reason: Pain 1 to 4 Last Admin: 11/10/17 16:49 Dose: 650 mg Ascorbic Acid (Vitamin C) 500 mg PO DAILY [facility] Last Admin: 11/13/17 09:03 Dose: 500 mg Enoxaparin Sodium (Lovenox) 40 mg SUBQ DAILY [facility] Last Admin: 11/13/17 09:03 Dose: 40 mg Famotidine (Pepcid) 20 mg PO DAILY [facility] Last Admin: 11/13/17 09:04 Dose: 20 mg Hydromorphone HCl (Dilaudid Inj Syringe) 0.5 mg IVP Q2H PRN PRN Reason: PAIN Last Admin: 11/11/17 21:40 Dose: 0.5 mg Piperacillin Sod/Tazobactam (Sod 3.375 gm/ Sodium Chloride) 100 mls @ 200 mls/ hr IV Q6H [facility] Last Infusion: 11/13/17 11:31 Dose: Infused Sodium Chloride (Normal Saline 0.9%) 500 mls @ 20 mls/hr IV Q24H PRN; TKO PRN Reason: TKO RATE Last Infusion: 11/13/17 04:49 Dose: 20 mls/hr Ibuprofen (Motrin) 600 mg PO Q6HR PRN PRN Reason: Pain 1 to 4 Last Admin: 11/13/17 09:04 Dose: 600 mg Mineral Oil (Cavilon) 1 applic TOP PRN PRN PRN Reason: Skin Care Multi-Ingredient Ointment (Zinc Oxide) 1 applic TOP PRN PRN PRN Reason: Skin Care Stop: 11/18/17 22:15 Last Admin: 09/08/18 09:40 Dose: 1 applic Multivitamins/Minerals (Theragran M) 1 tab PO DAILYWM [facility] Last Admin: 11/13/17 09:04 Dose: 1 tab Nicotine (Nicoderm) 1 patch TOP DAILY [facility] Last Admin: 11/13/17 09:03 Dose: 1 patch Ondansetron HCl (Zofran Inj) 4 mg IVP Q6HR PRN PRN Reason: Nausea / Vomiting Oxycodone HCl (Roxicodone) 5 mg PO Q4HR PRN PRN Reason: Pain 5 to 7 Last Admin: 11/12/17 04:51 Dose: 5 mg Polyethylene Glycol (Miralax) 17 gm PO DAILY [facility] Last Admin: 11/13/17 09:04 Dose: Not Given Prochlorperazine Edisylate (Compazine Inj) 10 mg IVP Q6HR PRN PRN Reason: Nausea / Vomiting Promethazine HCl (Phenergan Inj) 25 mg IM Q6HR PRN PRN Reason: Nausea / Vomiting Saccharomyces Boulardii (Florastor) 250 mg PO BIDWM [facility] Last Admin: 11/13/17 09:04 Dose: 250 mg Sodium Chloride (Normal Saline Flush 0.9%) 10 ml IVP PRN PRN PRN Reason: NEEDED PER PROVIDER ORDERS Sodium Chloride (Normal Saline Flush 0.9%) 10 ml IVP 0100,0900,1700 [facility] Last Admin: 11/13/17 09:04 Dose: Not Given Zinc Sulfate () 220 mg PO DAILY [facility] Last Admin: 11/13/17 09:04 Dose: 220 mg Zolpidem Tartrate (Ambien) 5 mg PO QPM PRN PRN Reason: Insomnia No Known Home Medications [No Known Home Medications] 11/10/17 Objective - Vital Signs/Intake & Output Reviewed Vital Signs: Yes Vital Signs: Vital Signs x48h Temp Pulse Resp BP Pulse Ox 11/13/17 08:00 36.6 C 92 24 102/70 96 Intake & Output: Intake & Output 11/10/17 11/11/17 11/12/17 11/13/17 23:59 23:59 23:59 23:59 Intake Total 4180 3500 1720 1080.333 Output Total 800 850 875 850 Balance 3380 2650 845 230.333 - Objective General Appearance: positive: No acute distress, Alert, Other (Cachectic elderly gentleman sitting up in bed. TV on. Done at home which is paying attention to it.) Eyes Bilateral: positive: PERRL ENT: positive: Pharynx nml Neck: positive: No JVD. negative: Stiff neck, Carotid bruit Respiratory: positive: Chest non-tender. negative: Wheezes, Rales, Rhonchi Cardiovascular: positive: Regular rate & rhythm, Systolic murmur. negative: Gallop/S4, Friction rub Abdomen: positive: Non-tender, No organomegaly, Nml bowel sounds, No distention , Other (Scaphoid.) Skin: positive: Other (The right leg continues to have loss of skin that starts at the distal one third from the kneecap. Goes all the way to the top of his foot. Skin loss extends laterally. With in the lateral space there is a large loss of even further soft tissue. This is going to take weeks to heal. Currently clean, no spreading cellulitis. No drainage. No foul smell. The left leg has loss of skin all the way down to the bottom of the foot. But the large loss of secondary skin lateral calf is not present. Again no redness indicating cellulitis.) Extremities: negative: Full ROM (Left knee with permanent flexion contracture of 70. Not tolerating the knee immobilizer for his knee Fracture.) Neurologic/Psychiatric: positive: CN's nml (2-12) (Deaf), Disoriented to place ( At times), Disoriented to time (At times), Weakness - Lab Results Fish Bones: 11/13/17 06:26 11/13/17 06:26 Other Labs: Lab Results x24hrs 11/13/17 11/13/17 11/13/17 Range/Units 06:26 06:26 06:26 WBC (4.8-10.8) x10^3/uL RBC (4.70-6.10) 10^6/uL Hgb (14.0-18.0) g/dL Hct (42.0-52.0) % MCV (80.0-94.0) fL MCH (27.0-31.0) pg MCHC (32.0-36.0) g/dL RDW (12.0-15.0) % Plt Count (130-450) 10^3/uL MPV (7.4-11.4) fL Neut # (Auto) (1.5-6.6) 10^3/uL Lymph # (Auto) (1.5-3.5) 10^3/uL [place] # (Auto) (0.0-1.0) 10^3/uL Eos # (Auto) (0.0-0.7) 10^3/uL Baso # (Auto) (0.0-0.1) 10^3/uL Absolute Nucleated RBC x10^3/uL Nucleated RBC % /100WBC VBG pH 7.436 H (7.31-7.41) Ionized Calcium 1.12 L YES (1.15-1.33) mmol/L Sodium 133 L (135-145) mmol/L Potassium 4.0 (3.5-5.0) mmol/L Chloride 99 L (101-111) mmol/L Carbon Dioxide 29 (21-32) mmol/L Anion Gap 5.0 L (6-13) BUN 15 (6-20) mg/dL Creatinine 0.4 L (0.6-1.2) mg/dL Estimated GFR (MDRD) 209 (>89) Glucose 101 H (70-100) mg/dL Calcium 7.8 L (8.5-10.3) mg/dL Total Bilirubin 0.5 (0.2-1.0) mg/dL AST 41 (10-42) IU/L ALT 35 (10-60) IU/L Alkaline Phosphatase 44 (42-121) IU/L Total Creatine Kinase 146 (22-269) IU/L Total Protein 5.8 L (6.7-8.2) g/dL Albumin 1.9 L (3.2-5.5) g/dL Globulin 3.9 (2.1-4.2) g/dL Albumin/Globulin Ratio 0.5 L (1.0-2.2) 11/13/17 Range/Units 06:26 WBC 6.4 (4.8-10.8) x10^3/uL RBC 4.05 L (4.70-6.10) 10^6/uL Hgb 11.8 L (14.0-18.0) g/dL Hct 35.4 L (42.0-52.0) % MCV 87.2 (80.0-94.0) fL MCH 29.2 (27.0-31.0) pg MCHC 33.5 (32.0-36.0) g/dL RDW 18.7 H (12.0-15.0) % Plt Count 218 (130-450) 10^3/uL MPV 8.6 (7.4-11.4) fL Neut # (Auto) 4.1 (1.5-6.6) 10^3/uL Lymph # (Auto) 1.4 L (1.5-3.5) 10^3/uL [place] # (Auto) 0.6 (0.0-1.0) 10^3/uL Eos # (Auto) 0.3 (0.0-0.7) 10^3/uL Baso # (Auto) 0.1 (0.0-0.1) 10^3/uL Absolute Nucleated RBC 0.02 x10^3/uL Nucleated RBC % 0.3 /100WBC VBG pH (7.31-7.41) Ionized Calcium (1.15-1.33) mmol/L Sodium (135-145) mmol/L Potassium (3.5-5.0) mmol/L Chloride (101-111) mmol/L Carbon Dioxide (21-32) mmol/L Anion Gap (6-13) BUN (6-20) mg/dL Creatinine (0.6-1.2) mg/dL Estimated GFR (MDRD) (>89) Glucose (70-100) mg/dL Calcium (8.5-10.3) mg/dL Total Bilirubin (0.2-1.0) mg/dL AST (10-42) IU/L ALT (10-60) IU/L Alkaline Phosphatase (42-121) IU/L Total Creatine Kinase (22-269) IU/L Total Protein (6.7-8.2) g/dL Albumin (3.2-5.5) g/dL Globulin (2.1-4.2) g/dL Albumin/Globulin Ratio (1.0-2.2) ABX Reporting Has patient been on IV antibiotics over the past 48 hours?: Yes Assessment/Plan - Problem List (1) Sepsis Impression: Resolved. Patient presented with leukocytosis of 11.5, lactic acidosis 4.5, tachycardia with heart rate of 110, and tachypneic with respiratory rate of 29. The patient was also confused and had altered mental status on presentation. The patient had generalized weakness prior to coming in and was found on the floor at his home. The patient appears to have severe sepsis on presentation with likely source being lower extremity cellulitis. The patient has erythema, swelling and pain of bilateral lower extremities with multiple wounds especially on the right lower extremity. The patient's urinalysis was negative and he did not have any respiratory symptoms to suggest pneumonia. The patient was admitted for severe sepsis likely secondary to cellulitis. With empiric antibiotic therapy in the form of Zosyn and vancomycin his leukocytosis is now resolved and it was 8 with Lactic acid below 2 on the day after admission. Today is day #4 of his stay. Because there is literature around the use of combination vancomycin and Zosyn causing acute kidney injury, we changed his Zosyn to meropenem. Plan: IV vancomycin and Meropenem to treat for bilateral lower extremity cellulitis, s /p Day #3 Vancomycin and s/p Day #2 meropenem. IV fluids now stopped Blood cultures are negative and his wound culture is beta hemolytic Strep group G and proteus. The wounds do show gram-negative and gram-positive bacilli. I stopped the vancomycin and went back to zosyn for the Strep and Proteus coverage, Day #3 We can stop monitoring lactic acid since it is now normal Telemetry monitoring was done for 24 hours and stopped. Continue to closely monitor blood pressure (2) Cellulitis Conclusion/Plan: Patient presented with severe sepsis and the sepsis is resolved and appears to have bilateral lower extremity cellulitis worse on the left but with severe wounds on the right. Patient's legs and wounds were foul-smelling and wounds on the right lower extremity had maggots which were removed in the ER. Patient had some altered mental status and appeared very dry on examination. He has improved with his mental status, and is not as dehydrated Plan: s/p IV vancomycin Day #3 Changed to meropenem, s/p day #2 from zosyn to avoid FREDIS. Now stop vancomycin and go back to zosyn now day #3 Wound care With [facility] clinic consult IV fluids stop Blood and wound cultures reviewed as above. Contact precautions can be stopped since cultures returned Orthopedics consulted and seen 11/10. Dr. Hernandez did debride somewhat but doesn't need to go to OR and no MRI needed. Qualifiers: Site of cellulitis: extremity Site of cellulitis of extremity: lower extremity Laterality: unspecified laterality Qualified Code(s): L03.119 - Cellulitis of unspecified part of limb (3) Rhabdomyolysis Conclusion/Plan: Resolved. Patient was found on the floor by his daughter and according to patient he was on the floor for 3 days but according to the daughter he was seen yesterday and looked to be fine. Unclear exactly how long the patient was on the floor but it appears that he has developed some mild rhabdomyolysis with a total CK of 1008. Patient does not have any renal failure secondary to the rhabdomyolysis. Plan: IV fluids stopped Monitor total CK. He is down to 157 from 1008, now nml. Can stop checking. Monitor creatinine and electrolytes Physical therapy consult given multiple falls and generalized weakness. See below with knee fracture report. Qualifiers: Rhabdomyolysis type: non-traumatic Qualified Code(s): M62.82 - Rhabdomyolysis (4) Wound, open, leg Conclusion/Plan: Patient has multiple wounds on bilateral lower extremities worse on the right. These appear to be chronic wounds that appear now to be infected and are foul- smelling with maggots. The patient has not seen a primary care physician in over 2 years and has obviously been neglecting his health. The patient's family state that they check in on him every few days but it appears the patient is getting nowhere near the help that he needs. The patient's wounds and legs appear to be infected. Plan: Wound care consult done Social work consult for assistance with home health services, possible placement and wound care. His son states dad will never go to a skilled nursing. He will absolutely refuse it. He is asking for a list of private in-home providers they can hire, or agencies they can go through. court worker has given him the list. IV antibiotics to treat cellulitis. Continue with changes as above. Day #5 of antibiotics. Orthopedic consult for possible debridement called to Dr. Hernandez and none needed. ABIs and possibly lower extremity angiogram as patient's dorsalis pedis pulse is very weak but not needed Consider MRI to look for possible osteomyelitis If Dr. Hernandez feels it is necessary. He does not so not ordered. He might be a candidate for hyperbaric treatment. I will ask Dr. Hernandez what the criteria are. Qualifiers: Encounter type: initial encounter Laterality: unspecified laterality Qualified Code(s): S81.809A - Unspecified open wound, unspecified lower leg, initial encounter (5) Hypertension Conclusion/Plan: Resolved. Patient's blood pressure is elevated on presentation with a blood pressure of 146/102. This may be secondary to pain as the patient does have quite a bit of pain in his left lower extremity. The patient states he does not have previous diagnosis of hypertension. The patient is not on any medications at this time. We will continue to monitor the patient's blood pressure while he is hospitalized and start him on antihypertensive medications if necessary. For now we will control the patient's pain and give him IV fluids for his dehydration and severe sepsis. But with that treatment, his blood pressure is been anywhere from 108 systolic to 119 systolic on the first day. Today, day #5 , he is 102-120 systolic. So no antihypertensives at this time. Qualifiers: Hypertension type: unspecified Qualified Code(s): I10 - Essential (primary ) hypertension (6) Hyperglycemia With a history of type 2 diabetes mellitus, controlled, not on insulin. Conclusion/Plan: The patient's blood glucose is elevated at 169 on presentation. According to the patient he has been diagnosed with prediabetes in the past but in reviewing centricity he carries a diagnosis of diabetes. The patient is not on any medications at this time for diabetes. A1c is 6% and we did consider starting him on sliding scale insulin or medications prior to discharge But with his age and comorbidity, most likely he will go home without medication.. For now we will monitor his blood glucose daily. Patient will be placed on regular diet for now and will no diabetic diet bc of his overall malnutrition and A1c acceptable. (7) Elevated LFTs Conclusion/Plan: Improved and resolving, but still not nml. The patient does have elevated LFTs with AST of 117 and ALT of 64. These may be elevated secondary to severe sepsis with endorgan damage. We will continue to monitor his LFTs daily if they continue to be elevated we will need to consider hepatitis panel and further workup. If they improve with IV fluids and treatment of his severe sepsis we will conclude that they were likely elevated due to severe sepsis. His AST is down 117>81>67>42>41 and normal since 11/12. ALT is normal. Change to BMP monitoring and not CMP. (8) Dehydration Conclusion/Plan: The patient appeared to be severely dehydrated on presentation. The patient's chloride was low at 99 and his mouth was very dry. According to the patient's family had been eating and drinking well until day before admission. The patient however stated that he been lying on the floor for the last 3 days. The patient may just be dehydrated secondary to infection as he did have an elevated lactic acid. We continue to give the patient IV fluids and monitor his electrolytes and kidney function.We also suspect that he has malnutrition and dehydration that has been chronic and ongoing. It is puzzling to us that the family feels that this is a recent acute event but the medical record with regards to weight loss shows differently and his exam shows chronicity of illness. (9) Hypothyroidism Conclusion/Plan: Borderline. Patient has a history of hypothyroidism and is on Synthroid at home. Patient has not been taking his home medications for several months and possibly years. He has not seen his primary care physician in 2 years. For now we will check the patient's TSH and then consider starting him back on his previous dose of Synthroid. His TSH is 4. At this time we will hold off on resuming medication since this is borderline hypothyroidism. Qualifiers: Hypothyroidism type: unspecified Qualified Code(s): E03.9 - Hypothyroidism , unspecified (10) Tobacco abuse Conclusion/Plan: The patient continues to smoke half a pack a day and cigars. The patient states he has been smoking for almost 60 years now. He does not plan on stopping. We did explain to him the adverse effects of smoking and gave him counseling. The patient was offered a nicotine patch while he is hospitalized. (11) Failure to thrive. Conclusion/Plan: Causes could be from adjustment disorder and the loss of his where he has never recovered vs. Cognitive deficit of aging vs. An undiagnosed depressive disorder. He does have a history of depression noted in April 2006. In any case, the patient has gone from 206 pounds 240 pounds between 2006 and 2015. He does have a history of an elevated PSA but that was evaluated with a biopsy by Dr. Martínez in 2013 and pathology was negative. There is a possibility of a neoplasm we are missing is the cause of his failure to thrive but it is not presenting itself. Chest x-ray does not show lung neoplasm. In any case, he is not doing well. I do not know how much we will be able to help him to regain his status. Son shares that dad will never go to a jail facility and they were in the process of trying to hire in-home support services. Social work feels that a APS referral for self neglect is in order and I agree. Today he is agreeing to [place] [facility]. (12) Fracture of left patella He was seen by Dr. Hernandez who reviewed the film. He has recommended a knee immobilizer. 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 Dr. Hernandez recommended a rolled small towel behind the knee in the popliteal fossa and in the knee immobilizer over that. Patient is not tolerating that at all so he may end up not needing the knee immobilizer. He has worked with physical therapy today. Per physical therapy "Pt demonstrates poor activity tolerance and requires increased assist to complete all ADLs and functional mobility tasks. Pt would benefit from SNF for continued therapy services once discharged from this facility." So ar the patient says no to Rehab at SNF. Family is working on it. today his note reads: MOBILIZE TOLERATED WITH KNEE IMMOBILIZER ON TO LIMIT KNEE RANGE OF MOTION. Orthopedic follow up in office in 4 weeks for repeat XR to check fracture healing and begin on out of immobilizer active range of motion, as indicated. . Qualifiers: Qualified Code(s): A41.9 - Sepsis, unspecified organism (13)Chronic protein calorie malnutrition. weight over time. In 2006 he was 206 pounds. In 2007 and 2008 he was 196 pounds. 2011 he was 192 pounds. He dropped to 185 by the end of the year. In 2013 he was 176. November 2015 he was 161. With this admission he is 140.8 pounds. followed by Nutrition services and he is eating 100% of his food. .
[2017-11-14] MEDS: PIPERACILLIN/TAZOBACTAM 3.375 GM in SODIUM CHLORIDE 0.9% MINIBAG 100 ML IV SCH ×2 (03:19→11:08)
[2017-11-14] MEDS: ZINC OXIDE 20% OINT 28.35 GM TUBE TOP PRN (03:23)
[2017-11-14 06:06] LABS: CALCIUM 8.1 mg/dL (8.5-10.3); CREATININE 0.6 mg/dL (0.6-1.2)
[2017-11-14] MEDS: SACCHAROMYCES BOULARDII 250 MG CAPSULE PO SCH (08:42)
[2017-11-14] MEDS: ZINC SULFATE 220 MG CAPSULE PO SCH (08:42)
[2017-11-14] MEDS: IBUPROFEN 600 MG TABLET PO PRN (08:42)
[2017-11-14] MEDS: MULTIVITAMIN W/MINERALS TABLET PO SCH (08:42)
[2017-11-14] MEDS: ASCORBIC ACID CHEW 500 MG TABLET PO SCH (08:43)
[2017-11-14] MEDS: ENOXAPARIN 40 MG/0.4 ML SYRINGE SUBQ SCH (08:45)
[2017-11-14] MEDS: FAMOTIDINE 20 MG TABLET PO SCH (08:45)
[2017-11-14] MEDS: NICOTINE 21 MG PATCH TOP SCH (08:46)
[2017-11-14] MEDS: POLYETHYLENE GLYCOL 3350 17 GM PACKET PO SCH (08:47)
[2017-11-14] MEDS: SODIUM CHLORIDE FLUSH 0.9% 10 ML SYRINGE IVP SCH (08:47)
--- NOTE | 2017-11-14 09:31 | Discharge Plan ---
"[facility] - Discharge Plan And Transition Orders Disposition: 03 SNF DC/Xfer Condition: Stable Allergies and Adverse Reactions: Allergies Allergy/AdvReac Type Severity Reaction Status Date / Time methotrexate Allergy Emesis Verified 11/09/17 19:21 sulfasalazine AdvReac Severe Pericarditi Verified 11/10/17 09:18 s - SNF / [facility] Transition Orders Admit to (Facility): [facility] Under the care of (Name): the office of Naren Boo Discharge Diagnosis: 1. sepsis from skin infection resolved. 2. Deep wound both legs, over shins and calves from venous stasis ulceration. 3. cellulitis. 4. right shoulder skin ulcer from laying on floor. 5. severe protein calorie malnutrition. 6. Rheumatoid arthritis. 7. Elevated liver enzymes resolved. 8. dehydration resolved. 9. hypothryoidism. 10. tobacco abuse. 11. hypertension. 12. rhabdomyolysis resolved. 13. generalized weakness Medicare Certification Statement: I certify that [facility] care is medically necessary on a continuing basis for any of the conditions for which she/he is receiving care during hospitalization. Notify PCP of admission and forward orders to primary provider for signature. Weight on admission and: Weekly Call PCP immediately if weight increases by: 4.536 kg Other Notification Orders: Call PCP immediately if patient develops dyspnea, chest pain/tightness or edema. House Bowel Program: Yes Additional Bowel Program Orders: If no BM after 2 days, nurse may give M.O.M. 30ml PO PRN and/or ducolax Supp 1 KS and/or PAMELA 250mg P.O., and/or senna 1-2 tabs PO. On day 3 nurse may give repeat above order until residents constipation is resolved. Annual Influenza Vaccine (between Nov 05 and June 04): Yes Two-step PPD per [facility] [phone] or approved exception documents: Yes Treatments & Other Orders: xeroform dressing to cover wound, use surepress wrap to cover that. Change dessing every 3 days, unless becomes dirty or saturated. Oxygen Orders: prn O2 by nasal cannula to keep O2 sat >90% Lab Tests or X-ray Orders: weekly CMP. weekly CBC. start 11/21/17 Orthopedic Orders: MOBILIZE TOLERATED WITH KNEE IMMOBILIZER ON TO LIMIT KNEE RANGE OF MOTION. Orthopedic follow up in office in 4 weeks for repeat XR to check fracture healing and begin on out of immobilizer active range of motion, as indicated. Medication Orders: PLEASE REFER TO THE DISCHARGE MEDICATION LIST. Insulin Orders?: No If Yes, Add SNF - Insulin Orders Section (see tipsheet): - Medications New Prescriptions: Amox/Clav 500/125 [Augmentin] 1 each PO Q12H #14 tablet oxyCODONE [Roxicodone] 5 mg PO Q4-6H #30 tablet - Diet Type: Geriatric Texture: Mech soft Liquids: Thin Supplements: 4 ounces of jevity or ensure with meals May have monthly special meal: Yes - Therapies | Activity Therapy: Evaluation | Treat if indicated: PT, OT Rehabilitation Potential: Return to independent living Activity: Activity as Tolerated Weight Bearing: Full Weight Assistance Devices: Walker Follow Up: To see the Office of Naren Boo MD when he leaves the SNF."
[2017-11-14 16:33] VITALS: BP 125/79
--- NOTE | 2017-11-15 03:15 | DISCHARGE SUMMARY ---
Physician: Mariah Harris MD DATE OF ADMISSION: 11/09/2017 DATE OF DISCHARGE: 11/14/2017 DISCHARGE DIAGNOSES 1. Sepsis affecting skin. 2. Cellulitis of bilateral lower extremities. 3. Wound open of leg. 4. Skin ulcer of shoulder limited to breakdown of skin. 5. Multiple skin tears of lower spine skin. 6. Rhabdomyolysis. 7. Acute hyperglycemia. 8. Elevated liver function studies. 9. Dehydration. 10. Tobacco abuse. 11. Hypothyroidism. 12. Failure to thrive in adult. 13. Fracture of left patella. 14. Protein-calorie malnutrition, severe. DISCHARGE MEDICATIONS 1. Tylenol 650 mg p.o. q.4h. p.r.n. pain. 2. Motrin 600 mg p.o. q.6h. p.r.n. pain. 3. Augmentin 500/125 one tablet p.o. q.12h. #14. 4. Multivitamin with meals. 5. Nicotine 21 mcg patch daily. 6. Oxycodone 5 mg every 4-6 hours as needed for pain #30. PRINCIPAL PROCEDURES 1. Chest x-ray with interval increase in diffuse interstitial and hazy alveolar airspace opacities that may be either secondary to worsening interstitial lung disease or edema. No focal airspace consolidation. 2. Knee x-ray of left knee showing metal fragments in the distal thigh soft tissues, probable fracture at the lateral aspect of the patella on the sunrise view. 3. Blood cultures x2 sets negative. 4. Wound culture showing beta hemolytic group G, Proteus mirabilis, Providencia rettgeri, Morganella morganii. Unfortunately, these were received after the patient had already been discharged. While the Proteus and group G strep are sensitive, Morganella and Providencia are resistant to amoxicillin and clavulanic acid. Antibiotics may need to be changed. 5. Echocardiogram. Normal ventricular size and function. EF 55%. Left atrium mildly dilated. Mild pulmonary hypertension with pulmonary artery systolic pressure 39 mmHg. Right ventricle size and function normal. 6. Orthopedic consult with Dr. rJ Hernandez. 7. Wound care consult with [facility]. HOSPITAL COURSE: The patient is a 77-year-old man who has not seen a doctor in probably two years. He has rheumatoid arthritis with severe destruction of his metacarpal joints and toe joints. He has been reluctant to seek medical care for unclear reasons. His in 2013 and his children feel that he may have just given up at that point in time and really has not been taking really good care of himself. Besides the rheumatoid arthritis, he has type 2 diabetes mellitus, diet controlled, chronic venous stasis ulcers after a vein harvest of the left leg in 1964, status post pericardial effusion, status post pericardiectomy, benign prostatic hypertrophy, history of left foot cellulitis, osteoporosis, hypothyroidism. He presented to the emergency room with generalized weakness. He has been having increasing weakness and multiple falls over the last few months. On 11/06/2017, he had a fall when he was outside the grocery store in the parking lot. He was assisted back up by bystanders and was able to get back home. Over the last 2-3 days, he has become so weak and had another fall three days ago. Not able to get off the floor until today when his daughter arrived to find him on the floor. The daughter gives a different story and says that she and her brother have been checking up on their dad every couple of days and just found him yesterday. They state that he was brought food and ate an entire meal yesterday and seemed to be doing fine. When the daughter arrived to check on him today, she found him on the floor and called her brother, who got him up. He was confused, weak, so they brought him to the hospital. He is found to have confusion, severe malnutrition, dehydration. He has venous stasis dermatitis and noticed an open wound over the last few days with increasing drainage from the wounds. Bugs crawling in the wound. We found them to be maggots. He had redness and swelling of the left ankle up the left leg as well as the maggots in the right leg. The daughter did notice there was a foul odor from his legs, but she had not really seen the wounds on his legs. Again, there is inconsistency in the history between the daughter and the patient. Daughter and son both state that they see him regularly and bring him food. We are finding a patient who is severely malnourished, dehydrated, open leg wounds, maggots. He also had a right shoulder ulcer from where he had been lying on the floor and he had been having skin tears on his back that are now black skin. He was identified as having sepsis and the source being cellulitis. Placed on broad spectrum antibiotic. Cultures are as above from the wound. He was on empiric therapy with Unasyn, Ancef and occasionally vancomycin, until we settled on Unasyn to avoid nephrotoxicity. Again, final culture sensitivities were done after the patient had left the facility and his antibiotics may need to be changed once he gets to [facility]. He received wound care of the lower extremities with simple Xeroform dressing, after debridement by Dr. Hernandez. Dr. Hernandez also said the patient could be in an immobilizer and be mobilized. However, he has a permanent slight flexion contracture after a left femur fracture many decades ago. He had rhabdomyolysis. His initial CPK was 1008 and was 146 by 11/13/2017. Hyperglycemia was initially present on exam. Started at 169. By the time of discharge, he was 108. Glycosylated hemoglobin was 6%. We do feel he has type 2 diabetes mellitus, but he is controlled, not needing any medications at this time. Elevated liver enzymes were noted on admission. Hepzibah to be probably from generalized sepsis. He had resolution of those labs to normal. There was no abdominal pain on exam. He was felt to have severe protein-calorie malnutrition with weight loss greater than 18% in the last four months and nutrition intake less than 50% of intake for two weeks or more. Significant muscle wasting and loss of subcutaneous fat and bedridden with a significantly reduced functional capacity. On the day of discharge, I did ask the patient if he still wanted to live a longer life. He was startled by the question. I asked him this because he was so severely malnourished and so self neglected, I wondered if this was his way of trying to kill himself. He states no. He did not realize how much help he needed. His rheumatoid arthritis with the destroyed joints had left him relatively handicapped and he did not realize how much help he needed and was too proud to ask his children. He says he wants to live. He has eaten 100% of all of his meals while here. He would like to get better with rehab and then eventually go home. His children state that they are in the process of getting a list of private in-home hires and contacting agencies so that [facility], he will go home to private hire providers. At discharge, PHYSICAL EXAMINATION VITAL SIGNS: Temperature is 36.4, pulse is 95, blood pressure 125/79, respirations 22, 96% on room air. GENERAL: He is a cachectic, elderly gentleman with severe loss of muscle mass, gaunt cheeks, bilateral temporal wasting. Buenrostro and mustache, wearing glasses. NECK: Shotty adenopathy. No goiter or bruits. LUNGS: Have slightly tubular breath sounds, but no rhonchi, wheezing or crackles. PMI is normally placed with a regular rate and rhythm and a systolic ejection murmur. ABDOMEN: Scaphoid/concave. Normal bowel sounds. SKIN: Skin tears are present in the right back shoulder with slight ulcer down to the fat. On the lower back into the sacrum, he has skin tears that he came in with and that skin has turned black, but not infected. No surrounding cellulitis or oozing. The legs both have skin loss. He was seen by Dr. Hernandez and the wound care nurse. He is to receive Xeroform dressings to the legs and then wrapped with SurePress. These are to be changed every two days and to be cleaned with soap and water and dried before the next dressing is placed. Greater than 30 minutes was spent in preparation of discharge. If he continues to fail at home once he leaves [facility], he should be referred for Palliative Care Consult. TD: 11/14/2017 19:25 DIMITRI
== END 2017-11-14 16:47 | DRG 871 ==
LOC: ED 19:08 → MS2 20:44
PROVIDERS: ADMIT Internal Medicine; ATTEND Specialist
DX: A40.8 Other streptococcal sepsis (principal); S81.801A Unspecified open wound, right lower leg, initial encounter; L89.623 Pressure ulcer of left heel, stage 3; L89.213 Pressure ulcer of right hip, stage 3; L89.113 Pressure ulcer of right upper back, stage 3; L89.620 Pressure ulcer of left heel, unstageable; L89.219 Pressure ulcer of right hip, unspecified stage; L89.309 Pressure ulcer of unspecified buttock, unspecified stage; X58.XXXA Exposure to other specified factors, initial encounter; I10 Essential (primary) hypertension; I25.10 Atherosclerotic heart disease of native coronary artery without angina pectoris; G62.9 Polyneuropathy, unspecified; E43 Unspecified severe protein-calorie malnutrition; S82.002A Unspecified fracture of left patella, initial encounter for closed fracture; F17.200 Nicotine dependence, unspecified, uncomplicated; Z95.1 Presence of aortocoronary bypass graft; M62.82 Rhabdomyolysis; L03.116 Cellulitis of left lower limb; L03.115 Cellulitis of right lower limb; E87.2 Acidosis; I83.218 Varicose veins of right lower extremity with both ulcer of other part of lower extremity and inflammation; I83.228 Varicose veins of left lower extremity with both ulcer of other part of lower extremity and inflammation; L97.813 Non-pressure chronic ulcer of other part of right lower leg with necrosis of muscle; L97.821 Non-pressure chronic ulcer of other part of left lower leg limited to breakdown of skin; E11.52 Type 2 diabetes mellitus with diabetic peripheral angiopathy with gangrene; I96 Gangrene, not elsewhere classified; S31.000A Unspecified open wound of lower back and pelvis without penetration into retroperitoneum, initial encounter; W18.30XA Fall on same level, unspecified, initial encounter; B87.1 Wound myiasis; T38.1X6A Underdosing of thyroid hormones and substitutes, initial encounter; T37.8X6A Underdosing of other specified systemic anti-infectives and antiparasitics, initial encounter; T45.1X6A Underdosing of antineoplastic and immunosuppressive drugs, initial encounter; Z91.128 Patient's intentional underdosing of medication regimen for other reason; Y92.009 Unspecified place in unspecified non-institutional (private) residence as the place of occurrence of the external cause; R65.20 Severe sepsis without septic shock; E86.0 Dehydration; L89.312 Pressure ulcer of right buttock, stage 2; E11.42 Type 2 diabetes mellitus with diabetic polyneuropathy; E11.65 Type 2 diabetes mellitus with hyperglycemia; M24.562 Contracture, left knee; S72.402S Unspecified fracture of lower end of left femur, sequela; R13.10 Dysphagia, unspecified; K08.409 Partial loss of teeth, unspecified cause, unspecified class; R21 Rash and other nonspecific skin eruption; I11.9 Hypertensive heart disease without heart failure; I27.20 Pulmonary hypertension, unspecified; R62.7 Adult failure to thrive; E03.9 Hypothyroidism, unspecified; N40.0 Benign prostatic hyperplasia without lower urinary tract symptoms; M06.9 Rheumatoid arthritis, unspecified; L60.2 Onychogryphosis; H91.90 Unspecified hearing loss, unspecified ear; Z66 Do not resuscitate; Z16.11 Resistance to penicillins; Z60.2 Problems related to living alone; Z68.20 Body mass index [BMI] 20.0-20.9, adult; Z91.81 History of falling; Z74.01 Bed confinement status; Z72.0 Tobacco use; Z86.79 Personal history of other diseases of the circulatory system; Z86.59 Personal history of other mental and behavioral disorders
CPT/HCPCS: 36415; 51701; 71045; 80048; 80053; 81001; 81003; 82330; 82550; 83036; 83605; 83690; 84443; 85025; 87040; 87070; 87077; 87086; 87181; 87205; 93306; 96361; 96374; 99284; 99285

== ENCOUNTER 2017-11-29 12:21 | Outpatient (CLI) | payer MEDICARE, OTHER ==
--- NOTE | 2017-11-29 14:46 | XRAY Report ---
Reason: COUGH, FEVER, TACHYCARDIA Procedure Date: 11/29/2017 Accession Number: [id number] / [id number] Procedure: XR - Chest 2 View X-Ray CPT Code: 08288 FULL RESULT: EXAM: CHEST RADIOGRAPHY EXAM DATE: 11/29/2017 12:42 PM. CLINICAL HISTORY: Cough, fever, tachycardia. COMPARISON: Chest 1 view 11/09/2017. TECHNIQUE: 2 views. FINDINGS: Lungs/Pleura: There are stable increased coarse interstitial lung markings. There is a new density in the right lung, given timeframe presumed airspace disease. New atelectasis is seen in the region of the lingula. There is a small right and likely a small left pleural effusion. There is no pneumothorax. Mediastinum: Heart and mediastinal contours are unremarkable. Other: Median sternotomy changes are again seen. IMPRESSION: Interval increase in small pleural effusions and suspected airspace disease. There is likely a background of interstitial lung disease, recommend CT of the chest on a routine basis once the acute pulmonary episode subsides. RADIA
== END 2017-11-29 12:22 | disposition home or self-care (01) ==
LOC: DI 12:21
PROVIDERS: ATTEND Family Medicine
DX: J90 Pleural effusion, not elsewhere classified (principal); R05 Cough; R50.9 Fever, unspecified
CPT/HCPCS: 71046

== ENCOUNTER 2017-11-30 15:20 | Outpatient (CLI) | payer MEDICARE, OTHER | END 2017-11-30 15:21 | disposition home or self-care (01) | LOC: LAB.R 15:20 | DX: L08.9 Local infection of the skin and subcutaneous tissue, unspecified (principal); L03.90 Cellulitis, unspecified | CPT/HCPCS: 87070; 87205 ==

== ENCOUNTER 2017-12-13 17:00 | Outpatient (CLI) | payer MEDICARE, OTHER ==
[2017-12-13 18:11] LABS: BASOPHILS % (AUTO) 0.2 %; EOSINOPHILS # (AUTO) 0.2 10^3/uL (0.0-0.7); EOSINOPHILS % (AUTO) 4.6 %; HGB - HEMOGLOBIN 11.2 g/dL (14.0-18.0); LYMPHOCYTES % (AUTO) 27.3 %; MEAN CORPUSCULAR HEMOGLOBIN 28.8 pg (27.0-31.0); MEAN CORPUSCULAR HGB CONC 32.3 g/dL (32.0-36.0); MEAN CORPUSCULAR VOLUME 89.2 fL (80.0-94.0); MONOCYTES # (AUTO) 0.2 10^3/uL (0.0-1.0); MONOCYTES % (AUTO) 5.8 %; NEUTROPHILS # (AUTO) 2.2 10^3/uL (1.5-6.6); NEUTROPHILS % (AUTO) 62.1 %; PLT - PLATELET COUNT 196 10^3/uL (130-450); RED BLOOD COUNT 3.89 10^6/uL (4.70-6.10); RED CELL DISTRIBUTION WIDTH 18.2 % (12.0-15.0); WHITE BLOOD COUNT 3.6 x10^3/uL (4.8-10.8)
[2017-12-13 18:21] LABS: ALBUMIN 2.5 g/dL (3.2-5.5); ALBUMIN/GLOBULIN RATIO 0.5 (1.0-2.2); BILIRUBIN,TOTAL 0.4 mg/dL (0.2-1.0); CALCIUM 8.4 mg/dL (8.5-10.3); CREATININE 0.5 mg/dL (0.6-1.2); TOTAL PROTEIN 7.5 g/dL (6.7-8.2)
== END 2017-12-13 17:01 | disposition home or self-care (01) ==
LOC: LAB.R 17:00
DX: I10 Essential (primary) hypertension (principal); E44.0 Moderate protein-calorie malnutrition; L08.9 Local infection of the skin and subcutaneous tissue, unspecified
CPT/HCPCS: 80053; 85025

== ENCOUNTER 2017-12-15 09:30 | Outpatient (CLI) | payer MEDICARE, OTHER ==
--- NOTE | 2017-12-15 17:10 | CONSULTATION NOTE ---
Palliative Care Consultation - Referral Referring Provider: Dr. Kendall Patel Time of Visit: 5092-0745 Referral setting: Alf Facility Referral Reason: RA/Depression/Goals of Care - Information Sources Records reviewed: RN notes reviewed, Previous records reviewed History/Review of Systems obtained from: Patient Exam limitations: No limitations - History of Present Illness Brief History of Present Illness: This is a 77-year-old gentleman who presented to the hospital on 5 after having been found down for several days. Patient presented with severe lower extremity wounds, cellulitis, cachexia, sepsis, rhabdomyolysis, Hypertension and dehydration. Patient had had multiple falls over the months preceding his most recent hospitalization, had been living somewhat independently, driving, but had been demonstrating increasing signs of self-neglect. Patient's in 2013, continue to work for a couple more years, patient's perception is his most significant decline has been over the last 2 years when he has had a life of essentially "hermit". He was treated with antibiotics, rehydrated, and wound care initiated. Patient was then transferred to rehab on 11/14. Patient is continued to improve slowly, but did have a setback with an episode of pneumonia. He does appear quite frail, has had some weight loss, but his goals are to return back to his home setting. When asked about patient's understanding of his current situation, patient reports he is a 77-year-old man who is just following apart, that he was in the hospital because of his infections, and laid on the floor for over 36 hours. Has very little recall of the acute events, but does recall he was not scared are distressed and eventually someone would find him. When asked why he did not pursue assistance with his wounds particular is a deteriorated, reports he "hates hospitals", and feared if he got to the hospital he would never get out. He does feel like he has been getting along okay, but does recognize he has been going downhill, he perceives he has good support from his family and is anxious to get back home to his birds and cats. Medical/Surgical History - Past Medical History Cardiovascular: reports: Congestive heart failure (12/2011), Other (pericardial effusion hx; venous stasis) Respiratory: reports: COPD Neuro: Peripheral neuropathy Endocrine/Autoimmune: reports: HyPOthyroidism GI: reports: Other (left inquinal hernia) : reports: Benign prostate hypertrophy, Incontinence Psych: reports: Depression Musculoskeletal: reports: Osteoarthritis, Rheumatoid arthritis, Fatigue Derm: reports: Other (skin breakdown L/R LE secondary to assumed trauma/venous stasis; Left/Right heel decubs) MRSA Hx?: No - Past Surgical History Cardiovascular: reports: Other (pericardictomy) HEENT: reports: Cataracts - Substance History Use: Uses substance without health or social issues: Tobacco (currently on nicot ine replacement; past hx half pack + cigars at home proir to hospitalization), Alcohol (hx of use in [place]; not recently) Social History - Living Situation Living arrangement: At home, [facility] (at SNF for rehab stay since 11/14) Living Situation: Alone Support System: Reports [place] who does yardwork and fixes things for him. He reports his daughter and 3 grandkids lived with him for a while, that was quite hectic, she now lives with her boyfriend. 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 Family History - Family History Family History: Mother: (RA in 80s), Father: Medications/Allergies - Medications Home Medications: Ambulatory Orders Medication Instructions Recorded Confirmed Ibuprofen [Motrin] 600 mg PO Q6HR PRN tablet 11/14/17 12/17/17 Multivitamin W/Minerals [Theragran 1 tab PO DAILYWM tablet 11/14/17 12/17/17 M] Acetaminophen [Tylenol] 650 mg PO Q4HR PRN 12/01/17 12/17/17 Albuterol 2.5 mg INH Q4H PRN 12/01/17 12/17/17 Tamsulosin HCl [Flomax] 1 cap PO DAILY 12/01/17 12/17/17 oxyCODONE [Roxicodone] 1 - 2 tab PO Q4HR PRN 12/01/17 12/17/17 House Bowel Program 1 applic PO DAILY PRN 12/17/17 Naproxen Sodium [Aleve] 220 mg PO BID 12/17/17 12/17/17 Nicotine 21 mg Patch [Nicoderm] 14 mg TOP DAILY 12/17/17 12/17/17 - Allergies Allergies/Adverse Reactions: Allergies Allergy/AdvReac Type Severity Reaction Status Date / Time methotrexate Allergy Emesis Verified 11/09/17 19:21 sulfasalazine AdvReac Severe Pericarditi Verified 11/10/17 09:18 s Review of Systems - Constitutional Constitutional: reports: Fatigue, Weight loss (154 on admit to [facility] 161). denies: Fever - Eyes Eyes: reports: Vision loss, Corrective lenses - Ears, Nose & Throat Ears, Nose & Throat: reports: Hearing loss (mild), Postnasal drainage (reports frequent), Other (no teeth or dentures) - Cardiovascular Cardiovascular: reports: Decr. exercise tolerance. denies: Edema - Respiratory Respiratory: reports: Cough, SOB with exertion, Other (is wanting to stay of tobacco; discussed transition plan). denies: SOB at rest - Gastrointestinal Gastrointestinal: reports: Good appetite. denies: Constipation, Reflux/hear tburn - Genitourinary Genitourinary: reports: Incontinence - Musculoskeletal Musculoskeletal: reports: Stiffness, Limited range of motion, Muscle weakness, Assistive devices (uses walker) - Integumentary Integumentary: reports: Other (right and left lower extremity wounds; bilateral heel decubs; currently receiving tx at [facility]) - Neurological Neurological: reports: General weakness, Memory problems (STM but does not present as confused) - Psychiatric Psychiatric: reports: Depression (patient feels his depression will improve when he returns back to own environment) - Endocrine Endocrine: reports: Intolerance to cold - Hematologic/Lymphatic Hematologic/Lymphatic: reports: Anemia (hgb 11.2; hct 34.7), Recurrent inf ections (treated for pneumonia at [facility]) - All Other Systems All Other Systems: reports: Reviewed and negative Physical Exam - Vital Signs Temperature: 97.0 C Pulse Rate: 92 Respiratory Rate: 20 O2 Saturation: 93 (ra @ rest) Blood Pressure: 138/72 - Physical Exam General Appearance: positive: No acute distress Eyes Bilateral: positive: Normal inspection ENT: positive: No signs of dehydration Neck: positive: Trachea midline Cardiovascular: positive: Regular rate & rhythm Respiratory: positive: Diminished throughout Abdomen: positive: Non-tender, Soft, Nml bowel sounds Skin: positive: Other (examined pics Wound care; residual wounds include left heel 1.7 x 1.7 cm <0.25 cm; RLE with still large areas of denuded skin filling in but no s/s infection; right heel still open) Extremities: positive: No pedal edema Neurologic/Psychiatric: positive: Oriented x3, Mood/affect nml, Weakness, Flat affect Palliative Care - POLST Patient has POLST: Yes POLST Status: DNR, Comfort Measures Pain: Location (pain with dressing change/debridement only; feels even on oxycodone throws him off for the rest of the day; background pain related to RA with hands being most achey as well as other joints;) Tiredness/Fatigue: Moderate (4-6) Drowsiness/Sedation: Mild (1-3) Nausea: None Depression: Moderate (4-6) Anxiety: Moderate (4-6) (regarding transition plan;) Dyspnea: Moderate (4-6) Anorexia: Mild (1-3) Sleep: Variable sleep pattern (attributes to BPH) Constipation: No Feelings of wellbeing/Perceived Quality of Life: Fair, Acceptable, Improved Performance Status: Patient reporting is participating in physical therapy, is able to ambulate around facility with walker. Do not have any issues he currently can wear thus limiting ability to go long distances. Reports sits in wheelchair as a place to reside, does not need wheelchair for mobility. Is dependent for assistance from staff for bathing, patient can feed himself, and does not see himself any barriers into going home regarding meeting care needs. - Palliative Care Discussion: Patient shares a story of his , who they had been for 27 years. I am she at home of cancer, he is taking care of her. "I was supposed to first", she was 11 years younger. He misses her quite clearly. 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 He reports he is a loner by default. For the most part he spends most of his time watching TV, he likes the old [employer] programs, reruns of [place]. He does have a [facility], filled out as a do not attempt resuscitation/allow natural and comfort focused treatments. 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 Reports she was part of some decisions along the way for him, there was some kind of "conference call". In discussing who he would most likely delegate if he were to do this differently, he reports he would have Juventino Parry his son, [phone]. He is currently on a hunting trip and not available, but plans to talk to him on his return next week Patient's goals are to return home to his [employer] cats and his birds, to regain some level of independence, though he does recognize the seriousness/chronicity of his illness and that clinical staff are worried about his ability to return home safely. We did discuss in the context of safe transition, his understanding is he has been recommended to hire some help, as well as [employer]. He is somewhat resigned to this fact, but does not think the street light repairer helper is necessary. Results - Lab Results Lab results reviewed: Yes Impression and Recommendations - Palliative Care Impression: This is a 77-year-old gentleman who presented on with acute illness and trauma as a result of a fall, had demonstrated self neglect and ongoing decline previous to this, would attribute this and review to symptoms of depression, grief, and concern for cognitive decline. Patient currently continuing to improve, wounds are healing, patient is regaining some strength but remains quite frail. Palliative care is been asked to provide support regarding his underlying failure to thrive, and assist in transition planning and support in the home setting Recommendations/Counseling Done: 1. Depression. Patient most likely would benefit from antidepressant, counseling provided regarding symptoms of depression, role of antidepressants, and concerns for symptoms contributing to self neglect. Discussion with patient, dislikes "pills", reports is feeling some elevation of mood with improved nutrition and increased strength. Patient's perception is he will improve at home setting, when he is back with his birds and cats, and feeling more settled. Patient did agree for reassessments regarding this after his transition to home and to revisiting this in the future. 2. Tobacco abuse. Patient currently has been on patch for 21 mg about 6 weeks, patient is anxious to complete treatment, will go ahead and order 14 may look grams for 2 weeks, then 7 mg for 2 weeks and discontinue. Patient at this point expressing interest in not restarting smoking. Counseling regarding this particularly in the context he has had recent pneumonia, goal to avoid hospitalization and ongoing recurrent health problems. 3. Rheumatoid arthritis. Patient has not been back to Dr. 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 Does have severe RA particularly in his hands, is concerned about ongoing deterioration and loss of independence. Patient does have pain specifically in his hands, has been responsive in past to Aleve. Patient dislikes the oxycodone, will go ahead and reinitiate naproxen 220 mg twice daily to see if his underlying comfort can be improved. 4. Weight loss. Patient is challenged given his lack of teeth, he feels he is eating a regular basis. Dietary has been working with them as well as initiation of med Pass 3 times a day. Had discussed possibly initiating mirtazapine as this would be appetite stimulant as well as antidepressant, he does not want anything that would cause sedation at night secondary to his BPH and frequent urination. 5. Advanced care planning. Patient would like to establish son as D POA, has not seen his documents that were drawn up with his , agreed would review when transition home to see if need updating. POLST completed. Patient's current goals are to regain some independence, have wounds healed, and return home. Time Spent: 60 minutes with greater than 50% of this done in counseling regarding goals of care, setting up rapport, patient did appear able to participate in the conversation, will see if I can get a copy of U MS from OT to further explore baseline cognitive status for future decision making, will follow into home setting and continue to evaluate if further palliative care needs.
== END 2017-12-15 09:31 | disposition home or self-care (01) ==
LOC: PC 09:30
PROVIDERS: ATTEND Nurse Practitioner Adult Health
DX: Z51.5 Encounter for palliative care (principal); F32.9 Major depressive disorder, single episode, unspecified; Z72.0 Tobacco use; M06.9 Rheumatoid arthritis, unspecified; R63.4 Abnormal weight loss; L89.629 Pressure ulcer of left heel, unspecified stage; L89.619 Pressure ulcer of right heel, unspecified stage; S81.801D Unspecified open wound, right lower leg, subsequent encounter; I11.0 Hypertensive heart disease with heart failure; I50.9 Heart failure, unspecified; E11.42 Type 2 diabetes mellitus with diabetic polyneuropathy; E03.9 Hypothyroidism, unspecified; N40.1 Benign prostatic hyperplasia with lower urinary tract symptoms; R35.0 Frequency of micturition; Z91.81 History of falling; Z87.01 Personal history of pneumonia (recurrent); Z66 Do not resuscitate
CPT/HCPCS: 99306

== ENCOUNTER 2017-12-30 18:08 | Outpatient (CLI) | payer MEDICARE, OTHER ==
--- NOTE | 2017-12-30 18:15 | CONSULTATION NOTE ---
Palliative Care Follow Up - Referral Referring Provider: Dr. Kendall Patel Time of Visit: [id number] Referral setting: Home (Patient seen in home setting to facilitate family conference, and evaluate transition home from long-term facility related to safety concerns) Referral Reason: Failure to Thrive - Information Sources Records reviewed: Previous records reviewed History/Review of Systems obtained from: Patient, Family (daughter Renuka joined for visit) Exam limitations: Clinical condition (patient very much introverted; STM issues) - History of Present Illness Update Brief HPI Update: This is a 77-year-old gentleman who was admitted 11/09/2017 to [facility] after a fall which occurred due to sepsis and multiple wound infections, cachexia, rhabdomyolysis, hypertension, and dehydration. He had been having multiple falls over the months preceding to this, but was demonstrating increased signs of self-neglect. Patient's in 2013, he continued to work for a couple more years, but the last 2 years has been deteriorating and increasingly more isolated Patient perceives himself as essentially "a hermit", he was discharged to long-term facility where the wound care of his lower extremity stasis ulcers was managed by the [facility] wound clinic, pressure ulcers have since improved and mostly resolved, and received rehab services including PT, OT, and speech. His appetite and nutrition status improved, though his weight remained stable between 156 and 160. He has returned home, continues with [facility] wound clinic on a weekly basis, and has started outpatient physical therapy 2 times a week. He has resumed smoking, remains somewhat quiet and withdrawn, denies suicidality, but there is a care plan in place including his daughter checking on him regularly, and hiring assistance from [facility]. Social History - Living Situation Living arrangement: At home Living Situation: Alone Support System: Daughter Iliana who has 3 young children of her own, has been checking them regularly since he has been discharged. We will continue to monitor, they are trying to get VA benefits to cover his caregiving, feel like they have a good plan and place Medications/Allergies - Medications Home Medications: Ambulatory Orders Medication Instructions Recorded Confirmed Ibuprofen [Motrin] 600 mg PO Q6HR PRN tablet 11/14/17 01/01/18 Multivitamin W/Minerals [Theragran 1 tab PO DAILYWM tablet 11/14/17 01/01/18 M] Tamsulosin HCl [Flomax] 1 cap PO DAILY 12/01/17 01/01/18 Fluticasone [Flonase] 1 spray [place] DAILY PM 12/28/17 01/01/18 Naproxen Sodium [Aleve] 220 mg PO BID 01/01/18 01/01/18 - Allergies Allergies/Adverse Reactions: Allergies Allergy/AdvReac Type Severity Reaction Status Date / Time methotrexate Allergy Emesis Verified 11/09/17 19:21 sulfasalazine AdvReac Severe Pericarditi Verified 11/10/17 09:18 s Review of Systems - Constitutional Constitutional: reports: Fatigue, Weight stable. denies: Fever, Chills - Eyes Eyes: reports: Vision loss - Ears, Nose & Throat Ears, Nose & Throat: reports: Other (no teeth or dentures) - Cardiovascular Cardiovascular: reports: Exertional dyspnea, Decr. exercise tolerance. denies: Chest pain - Respiratory Respiratory: reports: SOB with exertion, Other (restarted smoking; trying to keep 1/2 pack). denies: Cough - Gastrointestinal Gastrointestinal: reports: Early satiety. denies: Constipation, Nausea, Reflu x/heartburn - Genitourinary Genitourinary: reports: Frequency - Musculoskeletal Musculoskeletal: reports: Stiffness, Limited range of motion, Muscle weakness, Joint pain (mostly RA in hands/joints; can't see rheumatolgist until wounds heal), Assistive devices (uses walker) - Integumentary Integumentary: reports: Dryness, Other (LE wounds/healing pressure ulcers) - Neurological Neurological: reports: General weakness, Memory problems - Psychiatric Psychiatric: reports: Depression. denies: Suicidal - Endocrine Endocrine: reports: Intolerance to cold - Hematologic/Lymphatic Hematologic/Lymphatic: reports: Anemia (34.7), Recurrent infections (pneumonia at SNF/ cellulitis/sepsis on 11/09) - All Other Systems All Other Systems: reports: Reviewed and negative Physical Exam - Vital Signs Temperature: 96.5 C Pulse Rate: 94 Respiratory Rate: 18 O2 Saturation: 91 (ra @ rest) Blood Pressure: 122/64 - Physical Exam General Appearance: positive: No acute distress Eyes Bilateral: positive: Normal inspection ENT: positive: No signs of dehydration, Other (without teeth) Neck: positive: No JVD, Trachea midline Cardiovascular: positive: Regular rate & rhythm Respiratory: positive: Diminished throughout. negative: Wheezes, Rales, Rhonchi Abdomen: positive: Non-tender, Soft Skin: positive: Pallor, Dryness, Wound (wrapped LE/picture reviewed improving slowly) Extremities: positive: Other (difficulty getting from sitting to standing;) Neurologic/Psychiatric: positive: Oriented x3, Depressed mood/affect, Flat affect Palliative Care - POLST Patient has POLST: Yes POLST Status: DNR, Comfort Measures Pain: Pain unchanged, Location (LE discomfort with wound care; baseline RA pain in hands and hips) Tiredness/Fatigue: Moderate (4-6) Drowsiness/Sedation: Moderate (4-6) Nausea: None Depression: Moderate (4-6) Anxiety: None Dyspnea: Moderate (4-6) Anorexia: Mild (1-3) Sleep: Variable sleep pattern (up to void every 3-4 hours) Feelings of wellbeing/Perceived Quality of Life: Fair, Improved Performance Status: Patient back in home setting, spends most of his time in the recliner, tries to keep his legs elevated. Does need assistance yet with bathing, caregiver to start soon, unable to shower with dressing so will need bed baths. Patient ambulatory around the house with walker.. - Palliative Care Discussion: Patient perceives himself as a "hermit", that his quality of life is somewhat limited. He does enjoy his family, and there is a good relationship and rapport with daughter at visit. Patient did restart smoking, reports "is the only enjoyment I have", is currently going along with care plan. Patient does have [employer], they are pursuing VA support, current caregiver to help with meals, light housework. Does recognize he is at high risk for further decline, though is very resistant to considering initiation of an antidepressant. He does feel his mood is better at home, enjoys being with his cat, and in his familiar surroundings. Patient does have a DEMAR ST, which was filled out at [facility] with Dr. Khan, DNAR and Comfort focused treatments. Have not been able to locate paperwork, but understanding Rashida SALES [phone] is DPOA, wanted to change to son. Does not want to bother with this currently, agreed to revisit next month. Patient does feel like his goals are to improved his current situation, be more independent, and be able to work on his property again. He has never been sedentary before, though at some loss how to improve current status and has started smoking again. Impression and Recommendations - Palliative Care Impression: This is a 77-year-old man who presented on with acute illness and trauma as a result of a fall, with a history of self-neglect, ongoing decline, and failure to thrive. Patient has improved with long-term facility stay, wounds are improving, and is now participating with physical therapy outpatient. Patient declines treatment for depression including antidepressant and/or counseling, concern may fall into old patterns. Palliative care to provide support, evaluate for further concerns of failure to thrive, and assist with support in home setting. Patient currently has plan in place with [facility] support for wound care, physical therapy to improve functional status and independence, and caregiving support and home. Recommendations/Counseling Done: 1. Tobacco abuse. Patient had expressed interest in not restarting smoking, concern particularly in the context had recent pneumonia. Patient's goal has been to avoid hospitalization and improve ongoing health. Patient though perceives this only enjoyment he has, has agreed to try to limit to half pack a day. 2. Rheumatoid arthritis. Patient has been initiated naproxen 250 mg twice daily, reports this is improved his discomfort. Patient has plans to go back to see Dr. Young after wounds have healed. 3. Weight loss. Plan in place to assist with meal prep, daughter brought a milkshake, and has supplements there. Patient feels given current plan, may continue to improve. Will need ongoing monitoring, again consider initiating mirtazapine as it could be of appetite stimulant as well as antidepressant, though has declined at this point in time. 4. Depression. Patient remains at high risk for ongoing sequela of his depression, he has been provided counseling regarding symptoms, role of anti depressants, and concern for symptoms contributing to self neglect. Patient's perception he is willing to improve, agreed to reassessment in the future but has declined medication or counseling. 5. Advanced care planning. Will revisit advanced care documents next month, will need to locate old documents as well as follow-up with son if willing to be a health proxy. Patient does have a DEMAR ST, patient's current goals are again to regain some independence, have wounds healed, but continues to be at high risk for decline, sequela of a fall, and pneumonia with resumption of smoking. Prognostically patient on the Mariam index which looks at community dwelling adults age 65 and older At all because 1 year mortality, he is a total score of 4. Risk calculators cannot predict the future for any one individual, but gives an estimate of how many people with similar risk factors will live and , but not who will live in who will . He presents with a 1 year mortality of 14.6% Plan to see in 4-6 weeks, contact information given to patient and daughter if concerns arise before then. Hope to see how patient responds to outpatient physical therapy, increased help in the home, as well as wound healing prior to our next visit. Time Spent: 50 minutes was given 50% of this done in counseling regarding transition plan, resources and home, tobacco cessation counseling, and anticipatory guidance
== END 2017-12-30 18:09 | disposition home or self-care (01) ==
LOC: PC 18:08
PROVIDERS: ATTEND Nurse Practitioner Adult Health
DX: Z51.5 Encounter for palliative care (principal); Z72.0 Tobacco use; M06.9 Rheumatoid arthritis, unspecified; R63.4 Abnormal weight loss; F32.9 Major depressive disorder, single episode, unspecified; I83.009 Varicose veins of unspecified lower extremity with ulcer of unspecified site; L97.909 Non-pressure chronic ulcer of unspecified part of unspecified lower leg with unspecified severity; R62.7 Adult failure to thrive; I11.0 Hypertensive heart disease with heart failure; I50.9 Heart failure, unspecified; E11.9 Type 2 diabetes mellitus without complications; Z91.81 History of falling; Z66 Do not resuscitate; Z87.01 Personal history of pneumonia (recurrent); Z79.1 Long term (current) use of non-steroidal anti-inflammatories (NSAID)
CPT/HCPCS: 99349

== ENCOUNTER 2018-02-17 11:45 | Outpatient (CLI) | payer MEDICARE, OTHER ==
--- NOTE | 2018-02-17 19:02 | CONSULTATION NOTE ---
Palliative Care Follow Up - Referral Referring Provider: Dr. Kendall Patel Time of Visit: 2007-0711 Referral setting: Home (It is a taxing considerable effort for the patient leave the home, patient quite weak, balance poor and unsteady on feet. Patient should not be driving and has been communicated with recommendations.) Referral Reason: Right Elbow Cellulitis/MRSA positive LE wounds - Information Sources Records reviewed: Previous records reviewed History/Review of Systems obtained from: Patient, Family (son Kody and daughter Iliana at visit) Exam limitations: Clinical condition (patient with some STM issues) - History of Present Illness Update Brief HPI Update: This is a 77-year-old gentleman who was admitted to [facility] 11/09/2017 after a fall which occurred due to sepsis and multiple wound infections, cachexia, rhabdomyolysis, hypertension, and dehydration. It essentially been a failure to thrive, demonstrating increased signs of self-neglect, was [facility] to [facility] where his wound care of his lower extremity stasis ulcers was managed by [place] [facility] [place] These had been improving, over the last 2 weeks or so, patient has presented with decreased intake, doing more poorly in rehab services, poor appetite and nutrition, has resumed smoking. I have received a call from Ragini Macias RN, concern that he presents with increased lethargy, decreased alertness, had been prescribed antibiotics several days ago and had not initiated those. I had called his daughter yesterday, she did shrimp picker prescriptions last night, patient has had dose last night and this a.m. Patient does have a wound that was cultured, looks like it was the right lower extremity, that did show positive for MRSA and other organisms. In agreement with daughter would meet today, to evaluate patient's overall status, as well as concern about patient continuing to drive. On arrival patient does seem to be much thinner in stature, slower to respond, noticed a new wound in his right elbow, patient does state bundled up because he is often cold, had a large amount of swelling to his elbow and forearm, warm to touch, dressing put on earlier was saturated, with toribio drainage. Does appear to be pressure wound right at the elbow. Patient does sit continuously in his arm chair, patient has been less active, unclear if he has been compliant with meals and self care. Patient also complaining of sticking in his back which is. On examination patient has a deep pressure ulcer of about 3 x 3 cm, with white slough in the bottom of wound on left buttock, and scattered red shallow skin tears and blisters on his right buttock. Given patient's frail status, appears to be deteriorating with some failure to thrive, and concerned about previous history of sepsis and no antibiotics for several days, did agree to have evaluation in the ED. Requested labs, follow-up on wound, and concern for patient's risk for sepsis. Patient does not present with fever or chills, but some altered mental status, and decreased intake as well as appears to have had weight loss, and decline in functional status Social History - Living Situation Living arrangement: At home Living Situation: Alone, With caregiver(s) (has [facility] for several hours a couple of times a week) Medications/Allergies - Medications Home Medications: Ambulatory Orders Medication Instructions Recorded Confirmed Multivitamin W/Minerals [Theragran 1 tab PO DAILYWM tablet 11/14/17 02/19/18 M] Tamsulosin HCl [Flomax] 0.4 mg PO DAILY 12/01/17 02/19/18 Fluticasone [Flonase] 1 spray [place] DAILY PM 12/28/17 02/19/18 Naproxen Sodium [Aleve] 220 mg PO BID PRN 01/01/18 02/19/18 Doxycycline Hyclate 100 mg PO BID 02/19/18 02/19/18 Levofloxacin [Levaquin] 500 mg PO DAILY 02/19/18 02/19/18 - Allergies Allergies/Adverse Reactions: Allergies Allergy/AdvReac Type Severity Reaction Status Date / Time methotrexate Allergy Emesis Verified 02/17/18 13:25 sulfasalazine AdvReac Severe Pericarditi Verified 02/17/18 13:25 s Review of Systems - Constitutional Constitutional: reports: Fatigue, Other (unknown). denies: Fever, Chills - Eyes Eyes: reports: Vision loss, Corrective lenses - Ears, Nose & Throat Ears, Nose & Throat: reports: Hearing loss, Nasal congestion, Dry mouth - Cardiovascular Cardiovascular: reports: Decr. exercise tolerance. denies: Chest pain - Respiratory Respiratory: reports: SOB with exertion, Other (continues smoking 1/2-1 pack daily). denies: SOB at rest - Gastrointestinal Gastrointestinal: reports: Early satiety. denies: Nausea - Genitourinary Genitourinary: reports: Incontinence - Musculoskeletal Musculoskeletal: reports: Muscle weakness, Assistive devices (uses walker), Other (balance issues) - Integumentary Integumentary: reports: Other (LE wounds managed by [facility]; presents with new right elbow swelling and draining wound; new coccyx unstageable buttock wound) - Neurological Neurological: reports: General weakness, Memory problems - Psychiatric Psychiatric: reports: Depression - Endocrine Endocrine: reports: Intolerance to cold - All Other Systems All Other Systems: reports: Reviewed and negative Physical Exam - Vital Signs Temperature: 97.4 C Pulse Rate: 88 Respiratory Rate: 18 O2 Saturation: 95 (ra @ rest) Blood Pressure: 102/58 - Physical Exam General Appearance: positive: Mild distress Eyes Bilateral: positive: Normal inspection Neck: positive: Trachea midline Cardiovascular: positive: Regular rate & rhythm Respiratory: positive: Diminished throughout. negative: Wheezes, Rales, Rhonchi Abdomen: positive: Soft Skin: positive: Pressure wound (see HPI) Extremities: positive: No pedal edema Neurologic/Psychiatric: positive: Disoriented to time, Weakness, Slurred/abnml speech, Depressed mood/affect, Flat affect Palliative Care - POLST Patient has POLST: Yes POLST Status: DNR, Comfort Measures Pain: Pain unchanged, Location (new acute pain in buttocks area with pressure wound; bilateral pain in hands with RA; and overall body aches and joints) Tiredness/Fatigue: Moderate (4-6) Drowsiness/Sedation: Mild (1-3) Nausea: None Depression: Severe (7-10) Anxiety: Mild (1-3) Dyspnea: Moderate (4-6) Anorexia: Moderate (4-6) Sleep: Variable sleep pattern Constipation: No Feelings of wellbeing/Perceived Quality of Life: Fair, No change Performance Status: Patient does need assistance from sitting to standing, does appear quite weak in his lower extremities. Concerned about dehydration and weight loss. Patient reports he is not bathing, but has done spit baths. He does have caregivers, but does not appear that he is allowing them to assist him. Unclear patient's compliance with food and fluid intake. - Palliative Care Discussion: Patient seems somewhat nonplussed, though is concerned about his elbow. Son and daughter are quite frustrated, as patient does not reach out or ask for assistance. They do have some stretcher helper, unclear what patient is allowing them to do. Given patient's ongoing deteriorating status, has been advised not to drive, discussed weighing benefits and burdens of transitioning to home health. It is a taxing considerable effort at this point in time for patient to continue with outpatient services. Results - Lab Results Lab and Imaging Results: Report to ED, requested follow-up on labs to make sure patient not moving into sepsis, patient has been MRSA positive, no fever or chills, though poor appetite, mild alteration in level of alertness, concern for lethargy, and new right elbow wound with significant drainage. Impression and Recommendations - Palliative Care Impression: This is a 77-year-old gentleman who has a history of self-neglect, presents today as failure to thrive, functional decline, and concern for risk for recurrent sepsis. Patient with new right elbow wound and unstageable decub on left buttocks, MRSA positive RLE wound. Patient would benefit from more close monitoring, as well increased support for wound management in home setting. Palliative care providing support regarding concerns for ongoing decline, failure to thrive, and need for coordination of care. Recommendations/Counseling Done: 1. Right elbow cellulitis. Dressing changed, significant amount of toribio drainage, patient just started antibiotics for MRSA positive lower extremity wounds. Patient does not present with acute signs or symptoms of infection, the patient does Have functional decline, poor appetite, appears somewhat dehydrated as well as somewhat lethargic. Given patient's past history of sepsis, presentation is failure to thrive, will have patient seen in ED follow-up on rule out sepsis, if needs to be admitted for IV antibiotics, or further workup needed. Report called to Dr. Massey, patient agreed to go to ED for admit. Patient is quite fearful of hospitalization and placement in [facility] again. 2. Unstageable pressure ulcer left buttock, open areas on right buttock as well. Patient spends most of his time sitting in recliner. Suspect he sleeps in it as well. Area cleansed and sacral Mepilex border dressing applied. Counseling provided regarding pressure relief, daughters to shrimp picker wheelchair/chair pressure relief cushion. 3. Lower extremity wounds. These have been managed by the mat, recent MRSA positive wound right lower extremity I believe. Patient is just started his Levaquin and doxycycline, reviewed pictures from [facility], dressings intact. Message left for wound care nurse regarding new wounds, would recommend home health nursing for ongoing management giving patient's functional decline. May need to see one or two more times given availability for HH, will have daughter drive patient to appointments. 4. Advanced care planning. Had spoken with patient about me doing medical DURABLE POWER OF FITNESS ASSISTANT, at this point in time it is his [id number]. Patient does have a DEMAR ST in place from carriage which is DO NOT RESUSCITATE and comfort measures. Unable to address at this visit. Both daughter and son concern regarding patient's fragile status, and frustration with him not reaching out when needs assistance. Will follow-up after ED visit, for follow- up plan. All in agreement home health would be in alignment with patient's current condition, and most likely able to improve status. [id number] is a taxing considerable effort for the patient to leave the home, he has having increased lower extremity weakness, increased trouble with balance, and lethargy. Patient now presents with new right elbow wound as well as buttocks, despite his ongoing chronic lower extremity wounds which are now MRSA positive. Patient would benefit from more aggressive wound management and support in home setting. Physical therapy for strengthening, home safety eval, gait training and balance training. We will contacted Dr. Patel for orders, call to [facility] [employer] [facility] to put in queue. Time Spent: 45 minutes was given 50% of this done in counseling and coordination of care w ith the ED, [facility] clinic, and home health.Plan to follow-up on ED visit regarding recommended outcomes, and pursue home health for support
== END 2018-02-17 11:46 | disposition home or self-care (01) ==
LOC: PC 11:45
PROVIDERS: ATTEND Nurse Practitioner Adult Health
DX: Z51.5 Encounter for palliative care (principal); L03.113 Cellulitis of right upper limb; S51.001A Unspecified open wound of right elbow, initial encounter; L89.320 Pressure ulcer of left buttock, unstageable; L89.312 Pressure ulcer of right buttock, stage 2; I83.019 Varicose veins of right lower extremity with ulcer of unspecified site; L97.919 Non-pressure chronic ulcer of unspecified part of right lower leg with unspecified severity; B95.62 Methicillin resistant Staphylococcus aureus infection as the cause of diseases classified elsewhere; X58.XXXA Exposure to other specified factors, initial encounter; E11.9 Type 2 diabetes mellitus without complications; I11.0 Hypertensive heart disease with heart failure; I50.9 Heart failure, unspecified; Z72.0 Tobacco use; R62.7 Adult failure to thrive; Z66 Do not resuscitate; M06.9 Rheumatoid arthritis, unspecified; Z86.19 Personal history of other infectious and parasitic diseases; R26.89 Other abnormalities of gait and mobility; R53.83 Other fatigue; R53.1 Weakness
CPT/HCPCS: 99349

== ENCOUNTER 2018-02-17 13:14 | Emergency (ER) | payer MEDICARE, OTHER ==
--- NOTE | 2018-02-17 14:28 | ED Physician Documentation ---
PD HPI UPPER EXT INJURY - Stated complaint Stated Complaint: R ARM SWELLING - Chief complaint Chief Complaint: Ext Problem - History obtained from History obtained from: Patient, Family (son, Kody) - History of Present Illness Location: Right (He awoke with swelling and redness around the R elbow about 2 days ago, Pain is minimal. No fevers. Started doxy/levaquin for chronic cellulitis of lower extremity last night.) Review of Systems Ten Systems: 10 systems reviewed and negative Constitutional: denies: Fever, Chills Ears: denies: Ear pain Nose: denies: Rhinorrhea / runny nose, Congestion Throat: reports: Reviewed and negative Cardiac: reports: Reviewed and negative Respiratory: reports: Reviewed and negative PD PAST MEDICAL HISTORY - Past Medical History Cardiovascular: Congestive heart failure, Other Respiratory: COPD Neuro: Peripheral neuropathy Endocrine/Autoimmune: HyPOthyroidism GI: Other : Benign prostate hypertrophy, Incontinence HEENT: None Psych: Depression Musculoskeletal: Osteoarthritis, Rheumatoid arthritis, Fatigue Derm: Other - Past Surgical History Past Surgical History: Yes Cardiovascular: Other (pericardictomy) HEENT: Cataracts - Present Medications Home Medications: Ambulatory Orders Medication Instructions Recorded Confirmed Ibuprofen [Motrin] 600 mg PO Q6HR PRN tablet 11/14/17 01/01/18 Multivitamin W/Minerals [Theragran 1 tab PO DAILYWM tablet 11/14/17 01/01/18 M] Tamsulosin HCl [Flomax] 1 cap PO DAILY 12/01/17 01/01/18 Fluticasone [Flonase] 1 spray [place]KA DAILY PM 12/28/17 01/01/18 Naproxen Sodium [Aleve] 220 mg PO BID 01/01/18 01/01/18 - Allergies Allergies/Adverse Reactions: Allergies Allergy/AdvReac Type Severity Reaction Status Date / Time methotrexate Allergy Emesis Verified 02/17/18 13:25 sulfasalazine AdvReac Severe Pericarditi Verified 02/17/18 13:25 s - Social History Does the pt smoke?: Yes Smoking Status: Current every day smoker Does the pt drink ETOH?: No Does the pt have substance abuse?: No - Immunizations Immunizations are current?: No - POLST Patient has POLST: Yes POLST Status: DNR PD ED PE NORMAL - Vitals Vital signs reviewed: Yes - General General: Alert and oriented X 3, No acute distress - HEENT HEENT: PERRL, EOMI - Neck Neck: Supple, no meningeal sign, No bony TTP - Cardiac Cardiac: RRR, No murmur - Respiratory Respiratory: No respiratory distress, Clear bilaterally - Abdomen Abdomen: Soft, Non tender - Back Back: No CVA TTP, No spinal TTP - Extremities Extremities: Other (He has an open wound over the R olecranon bursa with p urulent drainage and surrounding cellulitis to mid bicep and to mid forearm. Good/painless ROM.) - Neuro Neuro: Alert and oriented X 3, Normal speech Results - Vitals Vitals: Vital Signs - 24 hr 02/17/18 02/17/18 13:17 15:01 Temperature 36 C L 36.4 C L Heart Rate 88 98 Respiratory 18 32 H Rate Blood Pressure 126/73 119/83 H O2 Saturation 96 95 Oxygen O2 Source Room air - Labs Labs: Microbiology 02/17/18 14:25 Wound Culture - Preliminary Elbow - Right Laboratory Tests 02/17/18 02/17/18 02/17/18 14:25 14:25 14:39 WBC 4.2 L RBC 4.04 L Hgb 11.4 L Hct 34.4 L MCV 85.1 MCH 28.1 MCHC 33.0 RDW 18.1 H Plt Count 170 MPV 9.3 Neut # (Auto) 3.1 Lymph # (Auto) 0.5 L [place] # (Auto) 0.3 Eos # (Auto) 0.3 Baso # (Auto) 0.0 Absolute Nucleated RBC 0.00 Nucleated RBC % 0.0 Sodium 137 Potassium 3.4 L Chloride 103 Carbon Dioxide 28 Anion Gap 6.0 BUN 12 Creatinine 0.5 L Estimated GFR (MDRD) 161 Glucose 141 H Lactic Acid 1.9 Calcium 8.5 Total Bilirubin 0.8 AST 34 ALT 15 Alkaline Phosphatase 67 Total Protein 7.7 Albumin 2.3 L Globulin 5.4 H Albumin/Globulin Ratio 0.4 L Lipase 28 PD MEDICAL DECISION MAKING - ED course ED course: 77-year-old gentleman with open olecranon bursitis and cellulitis upper extremity. He seems to be on appropriate antibiotics already which he just started last night. The bursitis was cultured. His labs are reassuring from a sepsis standpoint and continued antibiotic was advised. Departure - Departure Disposition: 01 Home, Self Care Clinical Impression: Olecranon bursitis, right elbow, Right arm cellulitis Condition: Good Record reviewed to determine appropriate education?: Yes Instructions: Cellulitis Dc Comments: COntinue current antibiotics and return if worse or not improving within 48 hours We are performing a wound culture, the results should be done in 48-72 hours. If antibiotic change is necessary we will call you. Return if worse in the meantime, especially if you develop increased pain, fevers, cannot keep down the medication. Otherwise follow-up with your physician in approximately 2-3 days.
[2018-02-17 14:46] LABS: BASOPHILS % (AUTO) 0.5 %; EOSINOPHILS # (AUTO) 0.3 10^3/uL (0.0-0.7); HGB - HEMOGLOBIN 11.4 g/dL (14.0-18.0); LYMPHOCYTES # (AUTO) 0.5 10^3/uL (1.5-3.5); LYMPHOCYTES % (AUTO) 12.5 %; MEAN CORPUSCULAR HEMOGLOBIN 28.1 pg (27.0-31.0); MEAN CORPUSCULAR VOLUME 85.1 fL (80.0-94.0); MEAN PLATELET VOLUME 9.3 fL (7.4-11.4); MONOCYTES # (AUTO) 0.3 10^3/uL (0.0-1.0); MONOCYTES % (AUTO) 6.4 %; NEUTROPHILS # (AUTO) 3.1 10^3/uL (1.5-6.6); NEUTROPHILS % (AUTO) 74.6 %; PLT - PLATELET COUNT 170 10^3/uL (130-450); RED BLOOD COUNT 4.04 10^6/uL (4.70-6.10); RED CELL DISTRIBUTION WIDTH 18.1 % (12.0-15.0); WHITE BLOOD COUNT 4.2 x10^3/uL (4.8-10.8)
[2018-02-17 14:57] LABS: ALBUMIN 2.3 g/dL (3.2-5.5); ALBUMIN/GLOBULIN RATIO 0.4 (1.0-2.2); BILIRUBIN,TOTAL 0.8 mg/dL (0.2-1.0); CALCIUM 8.5 mg/dL (8.5-10.3); CREATININE 0.5 mg/dL (0.6-1.2); TOTAL PROTEIN 7.7 g/dL (6.7-8.2)
[2018-02-17 15:02] VITALS: BP 119/83
== END 2018-02-17 15:18 | disposition home or self-care (01) ==
LOC: ED 13:14
DX: M70.21 Olecranon bursitis, right elbow (principal); L03.113 Cellulitis of right upper limb; G62.9 Polyneuropathy, unspecified; E03.9 Hypothyroidism, unspecified; F17.200 Nicotine dependence, unspecified, uncomplicated
CPT/HCPCS: 36415; 80053; 83605; 83690; 85025; 87040; 87070; 87181; 87205; 99282; 99283

== ENCOUNTER 2018-03-06 11:55 | Outpatient (CLI) | payer MEDICARE, OTHER | END 2018-03-06 11:56 | disposition critical access hospital (66) | LOC: EMS 11:55 | PROVIDERS: ATTEND Surgery | DX: R44.3 Hallucinations, unspecified (principal) | CPT/HCPCS: A0425; A0429 ==

== ENCOUNTER 2018-03-06 12:01 | Inpatient (IN) | payer MEDICARE, OTHER ==
[2018-03-06] MEDS ORDERED: SODIUM CHLORIDE 0.9% 1,000 ML IV ONE (12:25)
--- NOTE | 2018-03-06 12:28 | ED Physician Documentation ---
History of Present Illness - Stated complaint Stated Complaint: Hallucinations - Chief complaint Chief Complaint: Neuro - History obtained from History obtained from: Patient, Family (daughter, Iliana) - History of Present Illness Timing: Other (This is a 77-year-old gentleman with history of COPD, chronic recent venous stasis. He lives alone and has been having visiting caregivers and family frequently. He has been having a lot of wounds issues over the last few months, has been in wound care. The daughter says that on and off for the last 2 days he has been having hallucinations and she found him this morning in the same position in a recliner that he was in last night and not looking like he had moved at all. Patient has no specific complaints although is somewhat somnolent. He is alert and oriented to the month and year but not the date. He is a poor historian for short-term events.) Review of Systems Unable to obtain: Confused PD PAST MEDICAL HISTORY - Past Medical History Cardiovascular: Congestive heart failure, Other Respiratory: COPD Neuro: Peripheral neuropathy Endocrine/Autoimmune: HyPOthyroidism GI: Other : Benign prostate hypertrophy, Incontinence HEENT: None Psych: Depression Musculoskeletal: Osteoarthritis, Rheumatoid arthritis, Fatigue Derm: Other - Past Surgical History Past Surgical History: Yes Cardiovascular: Other HEENT: Cataracts - Present Medications Home Medications: Ambulatory Orders Medication Instructions Recorded Confirmed Multivitamin W/Minerals [Theragran 1 tab PO DAILYWM tablet 11/14/17 02/19/18 M] Tamsulosin HCl [Flomax] 0.4 mg PO DAILY 12/01/17 02/19/18 Naproxen Sodium [Aleve] 220 mg PO BID PRN 01/01/18 02/19/18 - Allergies Allergies/Adverse Reactions: Allergies Allergy/AdvReac Type Severity Reaction Status Date / Time methotrexate Allergy Emesis Verified 03/06/18 12:10 sulfasalazine AdvReac Severe Pericarditi Verified 03/06/18 12:10 s - Social History Does the pt smoke?: Yes Smoking Status: Current every day smoker Does the pt drink ETOH?: No Does the pt have substance abuse?: No - Immunizations Immunizations are current?: No - POLST Patient has POLST: Yes POLST Status: DNR PD ED PE NORMAL - Vitals Vital signs reviewed: Yes - General General: Other (He is alert and oriented to person and place but not time) - HEENT HEENT: PERRL (But small pupils) - Neck Neck: Supple, no meningeal sign, No bony TTP - Cardiac Cardiac: RRR, No murmur - Respiratory Respiratory: Other (Coarse rhonchi especially on the left) - Abdomen Abdomen: Soft, Non tender - Derm Derm: Other (He has a lot of wounds, there is a large wound over the right olecranon bursa with surrounding cellulitis. He has acute on chronic cellulitis of both legs. He has 4 small grade 2 sacral pressure ulcers and a grade 1 large ulcer over the thoracic spine.) - Neuro Neuro: No motor deficit, No sensory deficit Eye Opening: Spontaneous Motor: Obeys Commands Verbal: Confused GCS Score: 14 Results - Vitals Vitals: Vital Signs - 24 hr 03/06/18 03/06/18 12:02 14:00 Temperature 37.9 C H Heart Rate 94 48 L Respiratory 20 20 Rate Blood Pressure 113/78 95/60 O2 Saturation 100 98 Oxygen O2 Source Room air - EKG (time done) 1248 Rate: Rate (enter#) (91) Rhythm: Atrial fibrillation [place]: Normal Intervals: Prolonged QT (575msec) Ischemia: Non specific changes Computer interpretation: Agree with computer - Labs Labs: Laboratory Tests 03/06/18 03/06/18 03/06/18 12:43 12:43 12:43 WBC 2.3 L RBC 4.02 L Hgb 11.2 L Hct 34.3 L MCV 85.3 MCH 27.9 MCHC 32.7 RDW 19.7 H Plt Count 98 L MPV 10.3 Neut # (Auto) OUTREACH TEAM MEMBER Lymph # (Auto) OUTREACH TEAM MEMBER [place] # (Auto) OUTREACH TEAM MEMBER Eos # (Auto) OUTREACH TEAM MEMBER Baso # (Auto) OUTREACH TEAM MEMBER Absolute Nucleated RBC OUTREACH TEAM MEMBER Band Neuts % (Manual) Not Reportable Abnorm Lymph % (Manual) Not Reportable Nucleated RBC % OUTREACH TEAM MEMBER Neutrophils # (Manual) Not Reportable Lymphocytes # (Manual) 0.5 L Monocytes # (Manual) 0.3 Eosinophils # (Manual) 0.1 Basophils # (Manual) 0.0 Differential Comment MANUAL DIFFERENTIAL Platelet Estimate DECREASED (<130,000) RBC Morph Micro Appear 1+ POLYCHROMASIA PT 18.1 H INR 1.6 H Sodium 139 Potassium 3.5 Chloride 103 Carbon Dioxide 28 Anion Gap 8.0 BUN 15 Creatinine 0.7 Estimated GFR (MDRD) 109 Glucose 68 L Lactic Acid Calcium 8.5 Magnesium 1.8 Total Bilirubin 1.3 H AST 35 ALT 16 Alkaline Phosphatase 66 Total Creatine Kinase 59 CK-MB (CK-2) Troponin I Total Protein 7.9 Albumin 2.3 L Globulin 5.6 H Albumin/Globulin Ratio 0.4 L Lipase 27 Salicylates < 6.0 Acetaminophen < 10 L 03/06/18 03/06/18 12:43 12:43 WBC RBC Hgb Hct MCV MCH MCHC RDW Plt Count MPV Neut # (Auto) Lymph # (Auto) [place] # (Auto) Eos # (Auto) Baso # (Auto) Absolute Nucleated RBC Band Neuts % (Manual) Abnorm Lymph % (Manual) Nucleated RBC % Neutrophils # (Manual) Lymphocytes # (Manual) Monocytes # (Manual) Eosinophils # (Manual) Basophils # (Manual) Differential Comment Platelet Estimate RBC Morph Micro Appear PT INR Sodium Potassium Chloride Carbon Dioxide Anion Gap BUN Creatinine Estimated GFR (MDRD) Glucose Lactic Acid 2.0 Calcium Magnesium Total Bilirubin AST ALT Alkaline Phosphatase Total Creatine Kinase CK-MB (CK-2) 6.6 H Troponin I < 0.04 Total Protein Albumin Globulin Albumin/Globulin Ratio Lipase Salicylates Acetaminophen - Rads (name of study) 1v chest Radiology: EMP read contemporaneously (Diffuse air space opacities and small pleural effusions bilaterally) CT Head Radiology: EMP read contemporaneously (NAD, sinus dz, white matter dz) PD MEDICAL DECISION MAKING - ED course ED course: 77-year-old gentleman presents by ambulance with altered mental status and hallucinations as well as multiple wound infections including the right elbow, cellulitis of both legs and pressure sores of the back. Cultures were obtained and he was put on cefepime and vancomycin after discussion with the admitting hospitalist, Dr. Neri at 2:10 PM. Departure - Departure Disposition: [facility] DC/Xfer Clinical Impression: Olecranon bursitis, right elbow, Right arm cellulitis Cellulitis Qualifiers: Site of cellulitis: extremity Site of cellulitis of extremity: lower extremity Laterality: unspecified laterality Qualified Code(s): L03.119 - Cellulitis of unspecified part of limb Wound, open, leg Qualifiers: Encounter type: initial encounter Laterality: right Qualified Code(s): S81.801A - Unspecified open wound, right lower leg, initial encounter Condition: Serious
--- NOTE | 2018-03-06 12:43 | XRAY Report ---
Reason: altered, hypoxic Procedure Date: 03/06/2018 Accession Number: [id number] / [id number] Procedure: XR - Chest 1 View X-Ray CPT Code: 32697 FULL RESULT: EXAM: CHEST RADIOGRAPHY EXAM DATE: 03/06/2018 12:36 PM. CLINICAL HISTORY: Altered mental status, hypoxic. COMPARISON: CHEST 2 VIEW 11/29/2017 12:29 PM. TECHNIQUE: 1 view. FINDINGS: Lungs/Pleura: Interval development of marked bilateral diffuse airspace opacities with interval development of at least small bilateral pleural effusions. Mediastinum: The cardiomediastinal silhouette is now partially obscured with visualized portions stable accounting for differences in technique. Patient is status post median sternotomy. The aortic arch is calcified. Other: None. IMPRESSION: Interval development of diffuse airspace opacities and at least small pleural effusions. RADIA
[2018-03-06 13:08] LABS: INR 1.6 (0.8-1.2); PT - PROTHROMBIN TIME 18.1 secs (9.9-12.6)
[2018-03-06 13:11] LABS: BASOPHILS % (AUTO) 0.7 %; EOSINOPHILS % (AUTO) 7.3 %; HGB - HEMOGLOBIN 11.2 g/dL (14.0-18.0); LYMPHOCYTES % (AUTO) 18.2 %; MEAN CORPUSCULAR HEMOGLOBIN 27.9 pg (27.0-31.0); MEAN CORPUSCULAR HGB CONC 32.7 g/dL (32.0-36.0); MEAN CORPUSCULAR VOLUME 85.3 fL (80.0-94.0); MEAN PLATELET VOLUME 10.3 fL (7.4-11.4); MONOCYTES % (AUTO) 10.1 %; NEUTROPHILS % (AUTO) 63.7 %; PLT - PLATELET COUNT 98 10^3/uL (130-450); RED BLOOD COUNT 4.02 10^6/uL (4.70-6.10); RED CELL DISTRIBUTION WIDTH 19.7 % (12.0-15.0); WHITE BLOOD COUNT 2.3 x10^3/uL (4.8-10.8)
[2018-03-06 13:17] LABS: ACETAMINOPHEN < 10 ug/mL (10-30); ALBUMIN 2.3 g/dL (3.2-5.5); ALBUMIN/GLOBULIN RATIO 0.4 (1.0-2.2); ALKALINE PHOSPHATASE 66 IU/L (42-121); ALT ALANINE AMINOTRANSFERASE 16 IU/L (10-60); AST ASPARTATE AMINOTRANSFERASE 35 IU/L (10-42); BILIRUBIN,TOTAL 1.3 mg/dL (0.2-1.0); BUN - BLOOD UREA NITROGEN 15 mg/dL (6-20); CALCIUM 8.5 mg/dL (8.5-10.3); CARBON DIOXIDE - CO2 28 mmol/L (21-32); CHLORIDE 103 mmol/L (101-111); CK- CREATINE KINASE 59 IU/L (22-269); CREATININE 0.7 mg/dL (0.6-1.2); GFR - MDRD 109 (>89); GLUCOSE 68 mg/dL (70-100); LIPASE 27 U/L (22-51); MAGNESIUM 1.8 mg/dL (1.7-2.8); SALICYLATE < 6.0 mg/dL; SODIUM 139 mmol/L (135-145); TOTAL PROTEIN 7.9 g/dL (6.7-8.2)
[2018-03-06 13:20] LABS: CREATINE KINASE MB 6.6 ng/mL (0.6-6.3)
[2018-03-06 13:37] LABS: TROPONIN I < 0.04 ng/mL (<0.49)
[2018-03-06 13:46] LABS: PLATELET ESTIMATE, MANUAL DECREASED (<130,000) (NORMAL)
[2018-03-06 13:49] LABS: DIFFERENTIAL COMMENT MANUAL DIFFERENTIAL
--- NOTE | 2018-03-06 13:54 | CT Report ---
Reason: altered, hypoxic Procedure Date: 03/06/2018 Accession Number: [id number] / [id number] Procedure: CT - Head W/O CPT Code: FULL RESULT: EXAM: CT HEAD EXAM DATE: 03/06/2018 01:34 PM. CLINICAL HISTORY: Altered, hypoxic. COMPARISON: FACIAL BONES W10/29/2015 7:29 PM BRAIN W/WO 01/24/2016 9:00 AM. TECHNIQUE: Multiaxial CT images were obtained from the foramen magnum to the vertex. Reformats: Sagittal and coronal. IV contrast: None. In accordance with CT protocol optimization, one or more of the following dose reduction techniques were utilized for this exam: automated exposure control, adjustment of mA and/or KV based on patient size, or use of iterative reconstructive technique. FINDINGS: Parenchyma: There is mild to moderate nonfocal periventricular white matter hypodensity. Negative for acute hemorrhage. No midline shift or mass-effect. Extraaxial Spaces: Normal for age. No subdural or epidural collections identified. Ventricles: Normal in size and position. Sinuses and Orbits: There is complete opacification of the left maxillary sinus. The medial wall of the left maxillary sinus bulges medially consistent with chronic sinus disease. Findings appear similar to the previous MRI. There is opacification of the left frontal and bilateral ethmoid sinuses, also similar to previous. Bones: There is chronic degenerative disease of the right temporal mandibular joints. There is no calvarium fracture. Other: None. IMPRESSION: 1. Mild to moderate diffuse white matter disease. 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 2. Chronic paranasal sinus inflammatory disease with complete opacification of the left maxillary sinus with bony remodeling of the sinus wall. 3. No acute hemorrhage, mass-effect or definite acute intracranial process. RADIA
[2018-03-06 14:08] LABS: LYMPHOCYTES # (MANUAL) 0.5 10^3/uL (1.5-3.5); LYMPHOCYTES % (MANUAL) 20 %; MONOCYTES # (MANUAL) 0.3 10^3/uL (0.0-1.0); NEUTROPHILS % (MANUAL) 63 %
[2018-03-06 14:09] LABS: BASOPHILS % (MANUAL) 1 %; EOSINOPHILS # (MANUAL) 0.1 10^3/uL (0-0.7)
[2018-03-06] MEDS ORDERED: VANCOMYCIN INJ 1.5 GM in SODIUM CHLORIDE 0.9% 500 ML IV STA (14:09)
[2018-03-06] MEDS ORDERED: CEFEPIME 2 GM in SODIUM CHLORIDE 0.9% MINIBAG 100 ML IV STA (14:09)
[2018-03-06 14:12] LABS: NEUTROPHILS # (MANUAL) 1.5 10^3/uL (1.5-6.6)
[2018-03-06] MEDS ORDERED: MORPHINE 2 MG/ML CARPUJECT IVP PRN ×2 (14:51→18:26)
[2018-03-06] MEDS ORDERED: ONDANSETRON 4 MG/2 ML VIAL IVP PRN (14:51)
[2018-03-06] MEDS ORDERED: SODIUM CHLORIDE 0.9% 1,000 ML IV SCH ×2 (15:00→17:16)
[2018-03-06] MEDS ORDERED: VANCOMYCIN PER PHARMACY 1.5 GM in SODIUM CHLORIDE 0.9% 250 ML IV SCH (15:00)
--- NOTE | 2018-03-06 15:01 | HISTORY & PHYSICAL EXAMINATION ---
Chief Complaint - Chief Complaint Chief Complaint: AMS History of Present Illness - History of Present Illness HPI Comment/Other: is a 77-year-old gentleman with a past medical history significant for rheumatoid arthritis, prediabetes, chronic venous stasis status post vein harvest of the left leg in 1964, history of pericardial effusion status post pericardiectomy, BPH, right inguinal hernia, history of bilateral lower extremities cellulitis, right elbow pressure ulcer, and hypothyroidism who presented to the emergency department with a chief complaint of altered mental status. Upon assessment to pt, pt is hardly aroused. pt presents severe multiple wound infections including the right elbow, cellulitis of both legs and pressure sores of the back. Daughter at bedside state pt has been hallucinations for two days. she found him this morning in the same position in a recliner that he was in last night and pt was not looking like he had moved at all. Per his daughter report he is still cigarette smoker. pt'a initial sats were 89 on room air. Pt had home health for wound care R elbow & bottom. palliative care followed up pt. I called pt's DPOA Ms Rashida Billings, reported pt's rapid deteriorated conditions to her. she state she understand, pt is comfortable care, and will call pt's other family member. I called and consulted with palliative care Najma Bucio. Pt's daughter is at pt's bedside. I also discussed with her daughter about pt's rapid deteriorated condition. She state she understand and will notify his family member. Pt also has PLOST in [employer], state comfortable measure and DNR. History - Past Medical History Cardiovascular: reports: Congestive heart failure, Other Respiratory: reports: COPD Neuro: reports: Peripheral neuropathy Endocrine/Autoimmune: reports: HyPOthyroidism GI: reports: Other : reports: Benign prostate hypertrophy, Incontinence HEENT: reports: None Psych: reports: Depression Musculoskeletal: reports: Osteoarthritis, Rheumatoid arthritis, Fatigue Derm: reports: Other MRSA Hx?: No - Past Surgical History Cardiovascular: reports: Other HEENT: reports: Cataracts - Family & Social History Family History: Mother: (RA in 80s), Father: Family History Comment/Other: Patient's mother had rheumatoid arthritis. Patien t's son currently has rheumatoid arthritis and patient's father had osteoarthritis Social History Notes: The patient lives alone in [place]. He has 3 sons and 1 daughter. 1 of his sons and daughter both live nearby in [place]. The patient is his in 2013. According to his family since his he has stopped taking care of himself. The daughter and son state that they do help out the patient by bringing him food and checking in on him. They state that the patient is very stubborn and does not accept their help for taking care of any of his medical problems. The patient has not seen a physician in over 2 years. He has stopped taking his medications. The patient is retired and worked in the [employer] for 35 years. Prior to that he was in the [employer] for 21 years. He grew up in a [employer] family and was born in [place], [place]. But he moved all over the [facility] this is the father was in the [employer]. His father was stationed in [place] and then settled in [place] where the patient spent his teenage years. The patient currently lives alone and has had multiple falls over the last few months. He does use a walker and a cane at home. He states that his my house is a mess with bugs crawling everywhere. The patient continues to smoke. He smokes half a pack a day plus cigars. He has been smoking for nearly 60 years. He used to be a moderate drinker but has cut back on his alcohol after he was told he was prediabetic. He does not use any illicit drugs. - Substance History Use: Uses substance without health or social issues: Tobacco, Alcohol - POLST Patient has POLST: Yes POLST Status: DNR Meds/Allgy - Home Medications Home Medications: Ambulatory Orders Medication Instructions Recorded Confirmed Tamsulosin HCl [Flomax] 0.4 mg PO DAILY 12/01/17 03/06/18 Naproxen Sodium [Aleve] 220 mg PO BID PRN 01/01/18 03/06/18 - Allergies Allergies/Adverse Reactions: Allergies Allergy/AdvReac Type Severity Reaction Status Date / Time methotrexate Allergy Emesis Verified 03/06/18 12:10 sulfasalazine AdvReac Severe Pericarditi Verified 03/06/18 12:10 s Review of Systems - Other Findings Other Findings: pt is hardly aroused, can not provide any information Exam - Vital Signs Reviewed Vital Signs: Yes Vital Signs: Vital Signs x48h Temp Pulse Resp BP Pulse Ox 03/06/18 14:57 76 14 95/64 98 03/06/18 14:00 37.9 C H 48 L 20 95/60 98 03/06/18 12:02 94 20 113/78 100 - Physical Exam General Appearance: positive: Lethargic Eyes Bilateral: positive: Normal inspection ENT: positive: ENT inspection nml, Pharynx nml, Dry mucous membranes. negative: Purulent nasal drainage, Pharyngeal erythema, Oral lesions Neck: positive: Nml inspection, Thyroid nml, No JVD, Trachea midline. negative: Thyromegaly, Lymphadenopathy (R), Lymphadenopathy (L), Stiff neck, Swelling/bruising, Tracheal deviation Respiratory: positive: Chest non-tender. negative: Wheezes, Rales Cardiovascular: positive: Regular rate & rhythm, No murmur. negative: Irregularly irregular, Extrasystoles, Tachycardia, Bradycardia, Systolic murmur, Diastolic murmur Abdomen: positive: Non-tender, No organomegaly, Nml bowel sounds, No distention. negative: Tenderness, Guarding, Rebound Back: negative: CVA tenderness (R), CVA tenderness (L) Skin: positive: Skin rash, Laceration (cm). negative: Cyanosis, Pallor Extremities: positive: Pedal edema. negative: Calf tenderness, Lola's sign/cords Neurologic/Psychiatric: negative: Facial droop Sepsis Event Note (H) - Evaluation Current Stage of Sepsis: Severe sepsis Possible source of Sepsis: positive: Pulmonary, Skin/soft tissue, Wound - Sepsis Criteria Sepsis Criteria: Recorded Temperature greater than 38.3C or Less than 36C, Respiratory: Increasing oxygen requirements, WBC count greater than 12,000 or less than 4000, RELIABILITY MANAGER: altered consciousness (unrelated to primary neuro pathology), Metabolic: lactate > 2 mmol/L, Hematologic: platelets < 100,000; INR > 1.5, or a PTT>60 seconds Conclusion/Plan - Problem List (1) Cellulitis Conclusion/Plan: pt present severe bilateral lower extremities cellulitis, WBC 2.3, elevated temperature initially blood culture done at ER antibiotics treatment IVF of NS Qualifiers: Site of cellulitis: extremity Site of cellulitis of extremity: lower extremity Laterality: unspecified laterality Qualified Code(s): L03.119 - Cellulitis of unspecified part of limb (2) Wound, open, leg Conclusion/Plan: pt has wound open on bilateral lower extremity, pressure ulcer on right elbow and back antibiotics treatment wound care followup comfort care Qualifiers: Encounter type: initial encounter Laterality: right Qualified Code(s): S81.801A - Unspecified open wound, right lower leg, initial encounter (3) Sepsis Conclusion/Plan: pt present elevated temperature then hypothermia, WBC 2.3, lethargic, hardly ar oused, hypotensive continue antibiotics IVF of NS followup palliative, comfortable care (4) Tobacco abuse Conclusion/Plan: pt continue to use tobacco pt is on comfortable care (5) BPH (benign prostatic hyperplasia) Conclusion/Plan: resume home Flomax insert Guillaume (6) Hypotension Conclusion/Plan: pt's SBP is down to 94, possible from his severe infection, sepsis IVF of NS comfortable care - Lab Results Fish Bones: 03/06/18 12:43 03/06/18 12:43 Core Measures - Anticipated LOS I expect patient to be DC'd or transferred within 96 hours.: Yes - DVT/VTE - Prophylaxis VTE/DVT Device ordered at admit?: Yes VTE/DVT Prophylaxis med ordered at admit?: Yes
[2018-03-06] MEDS: SODIUM CHLORIDE FLUSH 0.9% 10 ML SYRINGE IVP SCH ×2 (18:10→23:37)
[2018-03-06 20:12] LABS: BILIRUBIN,URINE NEGATIVE (NEGATIVE); GLUCOSE, URINE (UA) NEGATIVE (NEGATIVE); KETONES,URINE (UA) NEGATIVE (NEGATIVE); LEUKOCYTE ESTERASE, URINE NEGATIVE (NEGATIVE); NITRITE,URINE NEGATIVE (NEGATIVE); OCCULT BLOOD,URINE NEGATIVE (NEGATIVE); PROTEIN,URINE TRACE mg/dL (NEGATIVE); UROBILINOGEN,URINE 1 (NORMAL) E.U./dL (NORMAL)
[2018-03-06 20:15] LABS: CLARITY,URINE CLEAR (CLEAR)
[2018-03-06] MEDS ORDERED: LIDOCAINE 2% URO-JET 5 ML SYRINGE UR ONE (20:45)
[2018-03-06] MEDS ORDERED: CEFEPIME 2 GM in SODIUM CHLORIDE 0.9% MINIBAG 100 ML IV SCH (22:00)
[2018-03-07 00:07] VITALS: BP 96/66
[2018-03-07] MEDS ORDERED: LORazepam 2 MG/ML VIAL IVP PRN (00:24)
[2018-03-07] MEDS ORDERED: LEVALBUTEROL 1.25 MG/3 ML NEB INH PRN (00:24)
[2018-03-07 00:48] LABS: VBG BASE EXCESS -1.5 mmol/L (-2 - +2); VBG PCO2 54.1 mmHg (41-51); VBG PH 7.294 (7.31-7.41); VBG PO2 44.5 mmHg (25-47); VBG TOTAL CO2 27.3 mmol/L (24-29)
[2018-03-07] MEDS: SODIUM CHLORIDE FLUSH 0.9% 10 ML SYRINGE IVP PRN ×2 (01:03→02:02)
[2018-03-07] MEDS ORDERED: FUROSEMIDE 20 MG/2 ML VIAL IVP ONE (01:23)
[2018-03-07] MEDS ORDERED: VANCOMYCIN INJ 1 GM in SODIUM CHLORIDE 0.9% 250 ML IV SCH (02:00)
--- NOTE | 2018-03-07 04:49 | PROVIDER PROGRESS NOTE ---
Double Corner Cutter Note - Double Corner Cutter Note Double Corner Cutter Note: I was called by nursing staff at 4:21 AM this morning to confirm the patient's passing. I arrived at the patient's bedside within aproximately minutes to find the patient with no spontaneous respirations. The patient had no chest rise. A deep sternal rub was performed with no response. Painful stimulus to the fingertips with nail pressure was performed with no response. Corneal reflex was attempted with no response. Patient was confirmed at 4:43 AM. The events preceding this between the time of the patient's admission and his expiring include a diagnosis of infection with SIRS response but a normal lactic acid. Patient had laboratory values significant for significant leukopenia, and was having increased respirations eventually in the 40s. Venous blood gases confirmed a respiratory acidosis, with an elevated BNP. An attempt at diuresis to improve breathing was performed with a single dose of Lasix 20 mg IV. 0.5 mg of Ativan was given IV. At this point, a breathing treatment as needed was ordered however at the time of respiratory therapy's assessment after the Ativan and Lasix the patient was much more comfortable, was responsive but calm and had normalizing respiratory rate. Patient slept for several hours, he received his antibiotic doses, and around the time when the nurse called the patient's son who had been sleeping in the room woke up and noticed that the patient did not appear to be breathing, the nurse confirmed this and called me at which point the patient was pronounced at 4:24 AM. Patient's goals of care included a status of comfort care measures and DO NOT RESUSCITATE with a POLST form scanned into the chart. Patient's family members are now being notified proper forms have been signed.
[2018-03-07] MEDS ORDERED: PANTOPRAZOLE 40 MG TABLET PO SCH (07:00)
[2018-03-07] MEDS ORDERED: POLYETHYLENE GLYCOL 3350 17 GM PACKET PO SCH (09:00)
[2018-03-07] MEDS ORDERED: ENOXAPARIN 40 MG/0.4 ML SYRINGE SUBQ SCH (09:00)
[2018-03-07] MEDS ORDERED: TAMSULOSIN 0.4 MG CAPSULE PO SCH (09:00)
== END 2018-03-07 04:24 | disposition expired | DRG 872 ==
LOC: EDUNIT# → ED 12:01 → MS2 14:51
PROVIDERS: ADMIT Nurse Practitioner Gerontology; ATTEND Nurse Practitioner Gerontology
DX: M70.21 Olecranon bursitis, right elbow (principal); A41.9 Sepsis, unspecified organism; L03.116 Cellulitis of left lower limb; L03.115 Cellulitis of right lower limb; S81.801A Unspecified open wound, right lower leg, initial encounter; L03.113 Cellulitis of right upper limb; E87.2 Acidosis; R41.82 Altered mental status, unspecified; R44.3 Hallucinations, unspecified; L97.929 Non-pressure chronic ulcer of unspecified part of left lower leg with unspecified severity; L97.919 Non-pressure chronic ulcer of unspecified part of right lower leg with unspecified severity; I83.029 Varicose veins of left lower extremity with ulcer of unspecified site; I83.019 Varicose veins of right lower extremity with ulcer of unspecified site; R65.20 Severe sepsis without septic shock; L89.152 Pressure ulcer of sacral region, stage 2; L89.101 Pressure ulcer of unspecified part of back, stage 1; L89.019 Pressure ulcer of right elbow, unspecified stage; N40.1 Benign prostatic hyperplasia with lower urinary tract symptoms; F17.200 Nicotine dependence, unspecified, uncomplicated; N39.498 Other specified urinary incontinence; I95.9 Hypotension, unspecified; I50.9 Heart failure, unspecified; F17.210 Nicotine dependence, cigarettes, uncomplicated; M06.9 Rheumatoid arthritis, unspecified; R73.03 Prediabetes; I87.8 Other specified disorders of veins; E03.9 Hypothyroidism, unspecified; J44.9 Chronic obstructive pulmonary disease, unspecified; G62.9 Polyneuropathy, unspecified; M19.90 Unspecified osteoarthritis, unspecified site; R53.83 Other fatigue; Z66 Do not resuscitate; Z51.5 Encounter for palliative care; Z91.81 History of falling; Z79.1 Long term (current) use of non-steroidal anti-inflammatories (NSAID)
CPT/HCPCS: 36415; 70450; 71045; 80053; 80307; 80329; 81001; 81003; 82550; 82553; 82803; 83605; 83690; 83735; 83880; 84484; 85025; 85610; 87040; 87086; 93005; 96361; 96365; 99284; 99285